=== PATIENT | female | born 1960 | race Caucasian/White ===

== ENCOUNTER 2018-10-24 06:04 | Inpatient (IN) | payer MEDICARE, OTHER, SELFPAY ==
[2018-10-09 12:43] VITALS: BMI 29.7
[2018-10-20 23:45] VITALS: BP 151/79; PULSE 77; RESP 16; TEMP 37.4; O2SAT 94
[2018-10-24] VITALS (16 sets, daily range): BP systolic 98–164; BP diastolic 52–99; PULSE 62–82; RESP 14–18; TEMP 36.2–37.3; O2SAT 88–100; BMI 28.6
--- NOTE | 2018-10-24 | DI.RAD.S_ITS ---
PROCEDURE: XR LUMBAR SPINE MIN 4V INDICATIONS: XLIF L1-2, L2-3, L3-4, L4-5, TLIF @ L5-S1 TECHNIQUE: Fluoroscopic images were obtained during an operative procedure and submitted for interpretation following the completion of the procedure. COMPARISON: [facility], , L-SPINE WITHOUT CONTRAST, 07/01/2015, 17:26. [facility], CR, L-SPINE 2-3 VIEWS, 12/25/2012, 14:01. FINDINGS: These fluoroscopic images were performed for intraoperative localization. On these images, the screws are seen on the left side at the L5 and S1 levels. Disc spacers are seen throughout the lumbar spine. Please correlate with intraoperative findings. IMPRESSION: Normal intraoperative examination. Dictated by: Tony Toribio M.D. on 10/24/2018 at 12:47 Approved by: Tony Toribio M.D. on 10/24/2018 at 12:48
[2018-10-24] MEDS: LACTATED RINGERS 1,000 ML 42 ML IV ×2 (07:15→09:05)
--- NOTE | 2018-10-24 07:19 | SUR.PREOP ---
Pt reports has chronic numbness and tingling in all four extremities but left side is worse per pt.
--- NOTE | 2018-10-24 07:27 | PC.NURSE ---
Day shift: Pt not on AC unit at this time.
--- NOTE | 2018-10-24 07:30 | PM.PREOP ---
Pre-operative Note Interval Note Pre-op Check: Yes History & Physical Reviewed by Physician and Yes Exam Performed Changes: No
--- NOTE | 2018-10-24 07:35 | P.OP_ITS ---
Operative Date/Time/Diagnoses Date of procedure: 10/24/18 Time of procedure: 11:47 Pre-op diagnosis: Lumbar stenosis with radiculopathy Lumbar scoliosis Procedure & Clinicians Procedure: L1-2, L2-3, L3-4, L4-5 anterior fusion with cages L5-S1 TLIF (post/post innerbody fusion) with cage L5 and S1 screws icbg aspirate L5S1 laminectomy use of microscope placement of epidural catheter Same procedure as scheduled: Yes Indications: [age] year old female with intractable pain from stenosis. She had failed conservative management and requested operative intervention. Risks and benefits of surgery were discussed and appropriate consents were obtained. Surgeon: Rodo Edmond Platform Material Handling Supervisor: Salena Mulligan Anesthesia Type: General Operative Notes Findings: None Closure Type: primary Specimen(s): none sent Implants & Drains: NuVasive MAS reline screws NuVasive XLIF cages Globus Rise cage Applied: catheter Estimated Blood Loss (mL): 20 Blood products transfused: none Procedure in detail: Patient was brought to the operating room and intubated on the table. Time-out was performed. They were then rolled over to the lateral decubitus position with the [id number]. The table was bent and they were taped down in the correct position. X-rays were taken to confirm a true AP and lateral. Preoperative antibiotics were given. The left flank was prepped and draped in standard sterile fashion. Using fluoroscopy, a 3 cm incision was made above the iliac crest. We bluntly dissected down with Metzenbaum scissors and split the 3 abdominal muscle layers. We dissected out the retroperitoneal space and using finger guidance, brought our 1st dilator down to the psoas muscle. Using neuromonitoring and fluoroscopy, we placed it through the psoas onto the L4-5 disc space in an anterior position and gradually pulled the dilator posteriorly along the disc space. We placed our guidewire and measured our depth for the retractor. We then dilated with the next 2 dilators and then placed our retractor over the dilators. Position was confirmed with fluoroscopy and the retractor was locked down to the bar. We opened up the retractor and checked with neuro monitoring. We then placed the nanci and again checked with neuro monitoring. The retractor was opened further and the ALL retractor was placed. An annulotomy was performed. We then performed a complete diskectomy with ring curette, pituitary, box osteotome. A Hernadez was advanced across the disc space under fluoroscopy to release the lateral annulus on the opposite side. We then used sequentially larger trials and confirmed under fluoroscopy. An XLIF cage was packed with Osteocell bone graft and impacted into the L4-5 disc space with fluoroscopy for the anterior fusion at this level. The wound was irrigated. The retractor was closed down. The nanci was removed. We carefully removed the retractor with direct visualization to make sure there was no neurovascular or abdominal injury. We then proceeded to do the next 3 levels with the same technique. At each level we used a dilator and checked with neuro monitoring, we placed a retractor , we performed a diskectomy and lateral release, we trialed, and we placed a cage with bone graft for the anterior fusions at L3-4, L2-3, L1-2. The retractor was removed under direct visualization at each level. Final x-rays were taken. The muscle fascia was closed, superficial tissue was closed. The skin was closed. Sterile dressing was placed. The patient was then rolled over on the well-padded prone position on the Toi table. Using fluoroscopy, a 4 cm longitudinal incision was made to the left of the midline. We used Bovie to come down to and split the lumbodorsal fascia. Using fluoroscopy and monitoring, we then percutaneously placed Jamshidi needles down the pedicles of L5 and S1 on the left side. These were changed out to guidewires and then we tapped and then placed the NuVasive MAS Reline screw shanks. We then opened up the retractors and used Bovie to clear up the posterolateral gutter as well as medially along the lamina to the spinous processes. A bur was used to decorticate the transverse processes. We brought in the microscope. Using a combination of bur and Kerrison rongeurs , a laminectomy was performed from the left side. We cleared over past the midline and carefully depressed the dura until we were able to decompress the opposite side. We cleared out the neural foramen. This required a facetectomy to adequately decompress the foramen. This completed the laminectomy at L5-S1. This was separate and distinct from the TLIF approach as we needed much more of an extensive laminectomy with facetectomy compared to just a standard approach. We then began the TLIF prep. We carefully cleaned up the remainder of the foramen until we could easily retract the exiting root as well as clearing medially below the dura and expose the disc space. The disc was prepped with bipolar and then an annulotomy was performed. This was tight and we had to use fluoro guidance to get started and used an osteotome to remove the posterior osteophytes to access the disc. We performed a diskectomy using a combination of paddles, debby, Kerrison, and curettes. We distracted the disc using a paddle and locked the retractor in an open position. This was very tight and we only had a 7mm paddle to do this. We then filled the disc space with Osteocell bone graft. We then placed the globus Rise cage under fluoroscopy and then filled this in with more bone graft. The distraction on the retractor was released to compress down. This completed the posterior interbody fusion portion of the TLIF at L5-S1. This cage was well fixed and I did not want to put the tulip heads on the screws yet as I wanted to be able access them with reduction heads at her next surgery in 2 days. The wound was copiously irrigated. A small stab incision was made over the PSIS. We used a Jamshidi needle to aspirate several mL of bone marrow from the pelvis. This was mixed with the remaining Osteocell and combined with all of the locally harvested bone graft and placed in the posterolateral gutter for the posterior fusion of the TLIF at L5-S1. An epidural catheter was then placed in the spinal canal by carefully depressing the dura and advancing it 6 cm cephalad under the remaining lamina without resistance. The muscle fascia was closed. The catheter was then injected with a solution containing 4 mL of 0.5% Marcaine, 1 mg Stadol, 4 mg Duramorph, and 100 mcg of fentanyl. This was injected without resistance and the catheter was pulled. Vancomycin powder was placed in the wound. The superficial and skin were closed. A sterile dressing was placed. The patient was then rolled over extubated and brought to recovery room without complications. Complications: none Condition: stable Disposition: PACU Plan for aftercare: Inpatient. Up with physical therapy as tolerated. We will return in 2 days for the extensive posterior fusion.
[2018-10-24] MEDS: CEFAZOLIN 2 GM/100 ML FROZ.PIGGY IV ×2 (07:48→16:45)
[2018-10-24] MEDS: SODIUM CHLORIDE 0.9% 1,000 ML, GENTAMICIN 80 MG IRR (08:26)
[2018-10-24] MEDS: VANCOMYCIN 1,000 MG VIAL 1000 MG TOP (08:28)
--- NOTE | 2018-10-24 08:33 | SUR.OPER ---
Right lateral on padded OR table. Head on pillow, gel axillary roll, pillow to support left arm. Legs flexed, pillows between legs, gel pad under down leg and ankle. Multiple passes of 3 inch cloth tape across shoulder, hip, upper and lower legs to secure patient on OR table.
--- NOTE | 2018-10-24 08:33 | SUR.OPER ---
Prone on spine table, head in foam head support, padded chest and pelvic supports, gel pad at knees, lower legs supported by pillows; nipples, genitalia and toes free of pressure, arms secured on foam padded arm boards at <90 degrees abduction. Tape over blanket at thigh secured to table.
[2018-10-24] MEDS: BUPIVACAINE 0.5% (PF) 4 ML, MORPHINE-PF 4 MG, BUTORPHANOL 1 MG, fentaNYL 100 MCG INJ (09:42)
[2018-10-24] MEDS: ACETAMINOPHEN 1,000 MG/100 ML VIAL IV (11:08)
--- NOTE | 2018-10-24 12:31 | SUR.PHASEI ---
Noted pt. with blood on hand upon admit, IV disconnected. This author was able connect IV back, fluids infused without further problems. Pt. began flailing arms (1205) irratically, pt. very strong while staff attempted to keep arms safe from injury. With pt. moving about in the bed and arms flailing IV got pulled out. Pt. compliant with commands to hold arms still while pressure was applied and new IV inserted into Right AC. Pt. tolerated well.
[2018-10-24] MEDS: fentaNYL 100 MCG/2 ML INJ 50 MCG IV ×2 (12:43→12:57)
--- NOTE | 2018-10-24 13:25 | PC.NURSE ---
Day shift: On unit at approx 1315. Oriented to room and call light. Agrees to not get OOB w/o help from staff. Bed alarm is on. A&Ox3. Hx PTSD. HAs been calm and cooperative. Rates pain 3/10.
[2018-10-24] MEDS: LACTATED RINGERS 1,000 ML 125 ML IV ×2 (13:58→22:36)
[2018-10-24] MEDS: OXYCODONE IR 5 MG TABLET 10 MG PO ×3 (14:02→20:27)
[2018-10-24] MEDS: hydrOXYzine pamoate 25 MG CAPSULE PO ×2 (14:02→17:43)
[2018-10-24] MEDS: CELECOXIB 200 MG CAPSULE 400 MG PO (14:03)
--- NOTE | 2018-10-24 14:39 | CM.DANOTE ---
Discharge Planning/Care Management DCP: assessment: case received, EMR reviewed and went earlier to room to meet with pt. She was still in surgery. White board with DCPlanner contact info updated. Documentation reveals that pt is a 58 year old female who admitted early this morning for a scheduled spinal surgery: NOTE: Part one of surgery today. Part two scheduled for 10/26. Surgeon: Dr. Edmond. PCP: Veronica Smith Payer: Medicare and [employer] Anticipate PT and OT will be working with pt. Pre-op assessment notes show that pt lives with a significant other (see those notes below) but is unclear what pt is planning for her rehab process or what she has discussed with the orthpedic team in terms of what will be needed to recover from this extensive surgery process. Will know more after pt arrives to the floor. P: DCP team will be following for further assessment and discussion of d/c issues and options. CM Discharge Assessment Start: 10/24/18 14:36 Freq: Status: Active Protocol: Document 10/24/18 14:36 ITV (Rec: 10/24/18 14:39 ITV [id number]) Discharge Planning Assessment Advance Directives? No: Information mailed to patient Prior Living Arrangements House Household Members significant other Document 10/24/18 14:37 ITV (Rec: 10/24/18 14:39 ITV [id number]) Discharge Planning Assessment Advance Directives? No: Information mailed to patient Prior Living Arrangements House Household Members significant other Document 10/24/18 14:37 ITV (Rec: 10/24/18 14:39 ITV [id number]) Discharge Planning Assessment Advance Directives? Information mailed to patient History Provided By Medical Record Prior Living Arrangements House Independent with ADL's Yes Whiteboard Updated in Patient Room with Yes name and ext. # of Industrial Tractor Driver Review Status In Process Next Review Type Continued Stay Review Pre-Anesthesia Assessment Start: 10/09/18 12:43 Freq: Status: Active Protocol: Document 10/09/18 12:43 CAB (Rec: 10/09/18 13:54 CAB [id number]) Pre-Anesthesia Assessment Patient Also Known As Becker (AKA) Patient Information Reviewed Via Phone Assessment Assessment Completed With Patient Lab Results BMP/CMP CBC EKG Primary Care Provider Veronica Smith Medical Clearance Received Yes Seen Specialist in Last 12 Months Yes Specialist Seen Paper Reel Operator Orthopedist Comment PCP clearance 08/01/18 to med records to be scanned to chart Primary Language Lao Acid Concentrator Required No Height 168.91 cm Weight 84.822 kg Body Mass Index (BMI) 29.7 Hearing Ability Hard of Hearing Visual Assist Glasses Dentition Type Teeth, Natural Present Barriers to Learning None Other Aids No Hx Anesthesia Reactions No Hx Family Anesthesia Reaction No Hx Malignant Hyperthermia No Hx Blood Transfusions No Anesthesia Review Requested No Television Equipment Operator No alcohol intake current alcohol intake frequency 0-2 drinks per day Smoking Status Former smoker how long ago did patient quit smoking Quit 1996 Substance Use Type marijuana Comment Pt advised not to smoke to marijuana 24 hours prior Pain Present Pain Reported Musculoskeletal Symptoms Abnormal Gait Back Pain Difficulty Walking Joint Pain Muscle Cramps Muscle Spasms Muscle Weakness Numbness Radiating Pain into Limb Patient is completely paralyzed or No completely immobile Mental Status Oriented to own ability Is patient on oxygen? No Does patient have WANG/SOB No Hx Sleep Apnea No Currently Taking a Beta Rory Yes: Propranolol Can You Climb a Flight of Stairs Without Yes SOB Hx Chest Pain No Hx SOB No Hx Syncope or Dizziness No Anti-Coagulant Therapy No Has a Assistant General Manager No Cardiac Testing No Hx Pacemaker/ICD No Pacemaker Rep Required? No Cardiac Clearance Received Not Applicable Diet Type At Home Regular dysphagia No Bladder Pattern Incontinent, Stress Urinary Catheter Present No Hx Urinary Self Catheterization No Diabetes No Patient No Lactating No Hx Drug Resistant Organism No Presence of External or Internal Medical Yes Devices Comment Lap band Have you traveled outside the [facility] States in the last 30 days? Marital Status Lives With significant other Prior Living Arrangements House Number of Floors (Floors) One Floor Number of Stairs To Enter/Railing? 3 stairs, railing present Support System Sibling(s) Significant Other Does the Patient Have Assistance After Yes Surgery Patient Discharge Plan Description Return Home Comment Pt has not been advised on length of stay per surgeon's office Feels Safe in Current Environment Yes Been Physically Hurt or Threatened By a No Person in Current Environment Do you have thoughts of harming yourself None or others? Are you currently considering suicide? No Do you have a plan to hurt yourself or No Plan others? Do You Have Any Spiritual Beliefs That No May Affect Your HC Choices? Do You Have Any Cultural Practices That No May Affect Your HC Choices? Spiritual Referral None Who Can We Speak to About Patient's Care Family, friends Identifying Code for Release of Patient Declines to issue Information Health Care Proxy/Next of Kin Carl Morin (S.O.) Health Care Proxy Emergency Contact Name Carl Morin (S.O.) Emergency Contact Advance Directives? No: Information mailed to patient Power of Cover Assembler No PAC Instructions Durable medical equipment Medications to take/avoid Nasal antibiotic No ETOH/petroleum product on skin DOS NPO Post-op transportation Pre-surgical wash Sturdy shoes/comfortable clothes Do not bring valuables and remove jewelry
--- NOTE | 2018-10-24 16:01 | PT.IIE ---
Current Diagnoses Other kyphosis, thoracolumbar region (10/24/18) Scoliosis, unspecified (10/24/18) Spinal stenosis, lumbar region with neurogenic claudication (10/24/18) Surgery Performed Operation Date: 10/24/18 07:45 Actual Procedures p L1-2, L2-3, L3-4, L4-5 XLIF; L5-S1 TLIF - Rodo Edmond MD Operation Date: 10/26/18 10:15 <No data on this case meets the specified criteria> Surgical History (Last Updated 10/09/18 @ 13:31 by Mae Ernst RN) History of ankle surgery (Acute ~2003) Hx of colonoscopy (Acute) Hx of laparoscopic gastric banding (Acute ~2004) Medical History (Last Updated 10/09/18 @ 13:31 by Mae Ernst RN) Chronic diarrhea (Acute) Depression (Acute) Easy bruisability (Acute) Facial lesion (Acute) Failed cervical fusion (Acute ~2007) Fecal incontinence (Acute) HTN (hypertension) (Acute) Hearing loss (Acute) History of UTI (Acute) Numbness and tingling (Acute) Pneumonia (Acute) RLS (restless legs syndrome) (Acute) Sinus infection (Acute ~2007) Stomach ulcer (Acute) Tinnitus of right ear (Acute) Trigger thumb, left thumb (Acute) Physical Therapy Inpatient Evaluation/Re-Eval M1 PT/OT-IP Prior Functional Status Start: 10/24/18 15:49 Freq: NEEDED Status: Active Protocol: Document 10/24/18 15:49 RS (Rec: 10/24/18 16:01 [id number]) Medical Review Prior Functional Status Medical History Reviewed Yes Diet/Fluid Consistency Regular Communication no known deficits Mobility and Gait ind without device Activities of Daily Living and IADL's denies needing assist Prior Functional Level (Other details) drives, denies falls Social History Household Members significant other Living Arrangements House Number of Floors (Floors) One Floor Number of Stairs To Enter/Railing? 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 Current Condition Start: 10/24/18 15:49 Freq: NEEDED Status: Active Protocol: Document 10/24/18 15:49 RS (Rec: 10/24/18 16:01 [id number]) Physical Therapy Current Condition Current Condition Evaluation Date 10/24/18 Treatment Diagnosis T1-S1 TLIF Onset Date 10/24/18 Precautions Lumbar Precautions Log Roll No Twisting Limit Bending Lifting Restriction of 10 lbs Gait Belt above Incisional Area M3 PT-IP Subjective Start: 10/24/18 15:49 Freq: NEEDED Status: Active Protocol: Document 10/24/18 15:49 RS (Rec: 10/24/18 16:01 RS [id number]) Subjective Physical Therapy Visit Type Type Initial Evaluation Visit Start Time 15:00 Visit Stop Time 15:49 Total Visit Minutes 49 Physical Therapy Visit Comments Patient Comments Pt reports feeling better than before, still has numbness in LLE. Patient Goals go home, move. Therapy Pain Assessment Pain When Pain Assessed At Rest Pain Present Pain Present Pain Reported Location Lower Back Intensity 3 Scale Used Numeric (1 - 10) Pain Management Techniques Distraction Modification of Treatment Re-positioning Timing of Activity with Medications M4 PT-IP Mobility and Gait Start: 10/24/18 15:49 Freq: NEEDED Status: Active Protocol: Document 10/24/18 15:49 RS (Rec: 10/24/18 16:01 RS [id number]) PT-Bed Mobility Assessment Rolling Type of Rolling Log Rolling Roll to Left Level of Assist Standby Assistance Supine to Sit Supine to Sit Minimal Assistance Scooting Scooting to Edge of Bed Standby Assistance PT-Transfer Assessment Sit to and From Stand Sit to and from Stand Standby Assistance Equipment Transfer Assistive Device Gait Belt Front Wheeled Walker Transfers Transfer Destination Bed Chair Transfer Technique walked Transfer Ability Level of Assist Standby Assistance Comments Mobility Comments Pt needs cues to slow down all movements but was able to perform log rolling and sit<> stand without physical assist. Pt needs min A to go from L sidelying to sitting EOB. Pt impulsive. Gait Assessment Gait Gait Assistance Required: Standby Assistance Distance (Feet) 60 Assistive Devices Assistive Device Gait Belt Front Wheeled Walker Gait Deviations General Gait Pattern Decreased Stride Length Decreased Feet Clearance Narrow Based Gait Factors Limiting Gait Function Factors Limiting Gait Function Decreased Sensation Pain Poor Safety Awareness Comments Gait Comments Pt steady with use of FWW but is taking extremely short steps, easily distracted, stops frequently to talk. Stair Climbing Assessment Comments Stair Climbing Comments not yet tested PT-Balance Assessment Sitting Balance and Reactions Static Sitting Balance Ability Normal Dynamic Sitting Balance Ability Normal Standing Balance and Reactions Static Standing Balance Ability Good Dynamic Standing Balance Ability Good Device Used FWW M5 PT-IP Objective Assessments Start: 10/24/18 15:49 Freq: NEEDED Status: Active Protocol: Document 10/24/18 15:49 RS (Rec: 10/24/18 16:01 [id number]) Orientation Orientation/Cognition Level of Alertness Confusional State Orientation Name Age Birthday Month Date Year Day of Week Place Situation Safety Awareness Decreased Safety Awareness Comments Pt is quite tangential and at times mildly inappropriate in her story telling or comments. Gross Range of Motion Upper Extremity ROM Assessment Within Functional Limits Lower Extremity ROM Assessment Within Functional Limits Strength Upper Extremity Strength Assessment Within Functional Limits Comments Strength Comments BLE grossly 4/5 Sensation Assessment Sensation Light Touch Impaired Proprioception (Position) Impaired M6 PT-IP Treatment Start: 10/24/18 15:49 Freq: NEEDED Status: Active Protocol: Document 10/24/18 15:49 RS (Rec: 10/24/18 16:01 [id number]) Physical Therapy Treatment Education Education Provided Precautions Weight Bearing Status Post-Op Packet Safety M7 PT-IP Assessment and Plan Start: 10/24/18 15:49 Freq: NEEDED Status: Active Protocol: Document 10/24/18 15:49 RS (Rec: 10/24/18 16:01 [id number]) PT Summary Assessment and Plan Potential Rehabilitation Potential Good Status of Condition at Evaluation Stable Summary Impairments Pain Strength Balance Cognition Bed Mobility Transfers Gait Activity Tolerance Assessment Summary Pt is POD#1 L1-S1 TLIF. Pt's mobility is quite good (only requiring physical assist with bed mobility), but pt is very impulsive and has a hard time focusing. Pt will likely be safe to discharge directly home pending cognitive clearing over the next 24 hours. Will need to confirm level of assist available at home as it was difficult to get detailed information from the patient at this time. Goals Bed Mobility Goal Independent Transfer Goal Independent Gait Goal Independent Days to Meet Goals 2 Frequency of Treatment Frequency Of Treatment Twice a Day Treatment Plan Physical Therapy Treatment Plan Bed Mobility Training Transfer Training Gait Training Balance Retraining Post Op Education Discharge Planning Other Recommendations and Next Treatment confirm assist at home, Focus progress gait distance/quality , bed mobility Recommendations To Nursing Amount of Assist Needed 1 Person Assist Discharge Recommendations PT Discharge Recommendations Home with 24/ Assist Outpatient PT Equipment Needed for Home Before FWW Discharge
--- NOTE | 2018-10-24 16:46 | PC.NURSE ---
Addendum entered by Felice Chapa 10/24/18 20:10: Patient ate some of her evening meal and all liquids provided. Patient state she liked the liquids and this student nurse observed the patient drinking lots of water and a urine that was clear and light yellow. Patient had a visitor during dinner but is alone and asleep now. Bed is low and locked and call light within reach. Original Note: Student nurse note: Patient was initially seen in bed. Patient worked with PT and was sitting upright in chair when physical assessment was done. Patient was very talkative and alert. Patient seemed to ramble on and topics weren't always appropriate for situation. Unsure if this is patients baseline. Patient reports little pain though a number was not given.
--- NOTE | 2018-10-24 17:27 | PC.NURSE ---
Addendum entered by Estefani Wilde R.N. 10/24/18 18:12: 1815- Pt reports 25 minds and is apologetic for them. A/O x3, S.O. visitinig. Original Note: Addendum entered by Estefani Wilde R.N. 10/24/18 18:10: 1730- Two sites to lower back with gauze/tegaderm drsg's, both CDI. Original Note: 1729- A/O x3, 100%RA, LS clear, denies SOB. CMS ++ full sensation. BT+, denies nausea. Pt up with PT @1530, PT has signed pt off. Advanced diet to reg. Nguyen patent and draining clear yellow urine. RAC @ LR @ 125. Calf SCD's on, Call light in reach and bed alarm on for safety.
[2018-10-24] MEDS: OXYCODONE IR 5 MG TABLET PO ×2 (17:43→20:26)
[2018-10-24] MEDS: PROPRANOLOL 10 MG TABLET 20 MG PO (20:20)
[2018-10-24] MEDS: SENNOSIDES 8.6 MG TABLET 17.2 MG PO (20:20)
[2018-10-24] MEDS: GABAPENTIN 300 MG CAPSULE PO (20:20)
[2018-10-24] MEDS: CELECOXIB 200 MG CAPSULE PO (20:20)
[2018-10-24] MEDS: DOCUSATE 100 MG CAPSULE PO (20:20)
[2018-10-25] VITALS (7 sets, daily range): BP systolic 97–146; BP diastolic 57–80; PULSE 61–80; RESP 16–20; TEMP 36.2–37.4; O2SAT 97–100
[2018-10-25] MEDS: CEFAZOLIN 2 GM/100 ML FROZ.PIGGY IV (00:19)
[2018-10-25 06:05] LABS: Hematocrit 32.7 % (36-46); Hemoglobin 10.9 g/dL (12.0-16.0)
--- NOTE | 2018-10-25 06:22 | PC.NURSE ---
0330: while in the BR, pt started to feel dizzy and nauseous. pt's face was pale. pt was diaphoretic, BP 97/69. We used a wheelchair to get her back to the bed. no sycope. BP went back up to 120/57. pt reports this happens often at home. call light in reach. bed alarm active. IVF infusing.
--- NOTE | 2018-10-25 08:03 | PM.PNPO.1 ---
Subjective Date Patient Seen: 10/25/18 Time Patient Seen: 08:04 Interval history: Doing well. Pain about 3/10. Still some ache over the left lateral hip but no more sciatic pain running down the left leg. Exam Vital Signs (past 8 hours): - 10/25/18 00:35 10/25/18 03:32 10/25/18 04:00 Temperature 98.3 F 97.2 F L Pulse Rate 68 66 66 Respiratory Rate 20 20 Blood Pressure 124/71 97/69 120/57 L Pulse Oximetry 98 97 Oxygen Delivery Method Room Air Oxygen Flow Rate 0 Const Orientation: alert and oriented x3 Back/Spine/Pelvis Other: Dressings clean dry intact. Mild bruising around skin. 5/5 motor both lower extremities Objective Labs Result Diagrams: 10/25/18 05:44 Labs: Laboratory Results - last 24 hr 10/25/18 05:44 Hgb 10.9 L Hct 32.7 L Assessment & Plan Post-op Postoperative Procedures Operation Date: 10/24/18 07:45 Actual Procedures Side Surgeon p L1-2, L2-3, L3-4, L4-5 XLIF; L5-S1 TLIF Rodo Edmond MD Operation Date: 10/26/18 10:15 <No data on this case meets the specified criteria> She is doing very well. As her sciatic pain has resolved, I do not think we need to do any further laminectomies in the middle levels, the indirect decompression from the anterior fusion seems to help with this. Mobilize today with physical therapy. Removed the Nguyen to decrease the chance of urinary infection. NPO after midnight. Return to the operating room tomorrow for the 2nd half with a T10 through S1 posterior instrumented fusion with bone graft.
[2018-10-25] MEDS: OXYCODONE IR 5 MG TABLET PO ×2 (08:08→21:33)
[2018-10-25] MEDS: CELECOXIB 200 MG CAPSULE PO ×2 (08:09→21:33)
[2018-10-25] MEDS: DOCUSATE 100 MG CAPSULE PO ×2 (08:09→21:33)
[2018-10-25] MEDS: SERTRALINE 50 MG TABLET 150 MG PO (08:09)
--- NOTE | 2018-10-25 08:49 | OT.IP.TRT ---
Current Diagnoses Other kyphosis, thoracolumbar region (10/24/18) Scoliosis, unspecified (10/24/18) Spinal stenosis, lumbar region with neurogenic claudication (10/24/18) Surgery Performed Operation Date: 10/24/18 07:45 Actual Procedures p L1-2, L2-3, L3-4, L4-5 XLIF; L5-S1 TLIF - Rodo Edmond MD Operation Date: 10/26/18 10:15 <No data on this case meets the specified criteria> Occupational Therapy Treatment Note M3 OT- IP Subjective and Pain Start: 10/25/18 08:47 Freq: Status: Active Protocol: Document 10/25/18 08:48 [facility] (Rec: 10/25/18 08:49 [facility] [email or web address]) OT- Subjective Occupational Therapy Visit Type Type Administrative Note Notes Pt to have 2nd part of back surgery tomorrow, therefore to hold on OT eval until after pt completes 2nd back surgery.
--- NOTE | 2018-10-25 10:20 | PT.IPTN ---
Current Diagnoses Other kyphosis, thoracolumbar region (10/24/18) Scoliosis, unspecified (10/24/18) Spinal stenosis, lumbar region with neurogenic claudication (10/24/18) Surgery Performed Operation Date: 10/24/18 07:45 Actual Procedures p L1-2, L2-3, L3-4, L4-5 XLIF; L5-S1 TLIF - Rodo Edmond MD Operation Date: 10/26/18 10:15 <No data on this case meets the specified criteria> Physical Therapy Treatment Note M2 PT-IP Current Condition Start: 10/24/18 15:49 Freq: NEEDED Status: Active Protocol: Document 10/24/18 15:49 RS (Rec: 10/24/18 16:01 RS [id number]) Physical Therapy Current Condition Current Condition Evaluation Date 10/24/18 Treatment Diagnosis T1-S1 TLIF Onset Date 10/24/18 Precautions Lumbar Precautions Log Roll No Twisting Limit Bending Lifting Restriction of 10 lbs Gait Belt above Incisional Area M3 PT-IP Subjective Start: 10/24/18 15:49 Freq: NEEDED Status: Active Protocol: Document 10/25/18 10:20 GGD (Rec: 10/25/18 11:40 GGD [id number]) Subjective Physical Therapy Visit Type Type Treatment Note Visit Start Time 09:55 Visit Stop Time 10:20 Total Visit Minutes 45 Physical Therapy Visit Comments Patient Comments Pt states she would like to get up and walk. Therapy Pain Assessment Pain When Pain Assessed At Rest Pain Present Pain Present Pain Reported Location Lower Back Intensity 3 Scale Used Numeric (1 - 10) M4 PT-IP Mobility and Gait Start: 10/24/18 15:49 Freq: NEEDED Status: Active Protocol: Document 10/25/18 10:20 GGD (Rec: 10/25/18 11:40 GGD [id number]) PT-Bed Mobility Assessment Rolling Type of Rolling Log Rolling Roll to Left Level of Assist Standby Assistance Supine to Sit Supine to Sit Contact Guard Assistance Scooting Scooting to Edge of Bed Standby Assistance PT-Transfer Assessment Sit to and From Stand Sit to and from Stand Standby Assistance Equipment Transfer Assistive Device Gait Belt Front Wheeled Walker Transfers Transfer Destination Chair Transfer Ability Level of Assist Standby Assistance Gait Assessment Gait Gait Assistance Required: Standby Assistance Distance (Feet) 80 Assistive Devices Assistive Device Gait Belt Front Wheeled Walker Gait Deviations General Gait Pattern Decreased Stride Length Decreased Feet Clearance Narrow Based Gait Factors Limiting Gait Function Factors Limiting Gait Function Decreased Sensation Pain Poor Safety Awareness Comments Gait Comments BP supine 117/63, sitting 122/ 65, sitting in chair after ambulation 102/57. M5 PT-IP Objective Assessments Start: 10/24/18 15:49 Freq: NEEDED Status: Active Protocol: Document 10/24/18 15:49 RS (Rec: 10/24/18 16:01 RS [id number]) Orientation Orientation/Cognition Level of Alertness Confusional State Orientation Name Age Birthday Month Date Year Day of Week Place Situation Safety Awareness Decreased Safety Awareness Comments Pt is quite tangential and at times mildly inappropriate in her story telling or comments. Gross Range of Motion Upper Extremity ROM Assessment Within Functional Limits Lower Extremity ROM Assessment Within Functional Limits Strength Upper Extremity Strength Assessment Within Functional Limits Comments Strength Comments BLE grossly 4/5 Sensation Assessment Sensation Light Touch Impaired Proprioception (Position) Impaired M6 PT-IP Treatment Start: 10/24/18 15:49 Freq: NEEDED Status: Active Protocol: Document 10/25/18 10:20 GGD (Rec: 10/25/18 11:40 GGD [id number]) Physical Therapy Treatment Education Education Provided Precautions Safety M7 PT-IP Assessment and Plan Start: 10/24/18 15:49 Freq: NEEDED Status: Active Protocol: Document 10/25/18 10:20 GGD (Rec: 10/25/18 11:40 GGD [id number]) PT Summary Assessment and Plan Summary Assessment Summary Pt improving with bed mobility and gait. She did c/O nausea with gait and had slight decrease in BP. D/C plans will need to be reassessed after surgery tomorrow. Frequency of Treatment Frequency Of Treatment Twice a Day Treatment Plan Physical Therapy Treatment Plan Bed Mobility Training Transfer Training Gait Training Balance Retraining Post Op Education Discharge Planning Recommendations To Nursing Amount of Assist Needed 1 Person Assist Discharge Recommendations PT Discharge Recommendations Home with Assistance Equipment Needed for Home Before FWW Discharge
--- NOTE | 2018-10-25 11:54 | PC.NURSE ---
Addendum entered by Isabela Delatorre R.N. 10/25/18 12:56: Pts jacques catheter taken out around 1230. She is lying in bed comfortable and tolerated procedure well Original Note: Pt given 5mg of oxycodone and helpful for 3/10 pain to lower back and side. into see patient and wants jacques catheter d/cd. Will be done right after her friend is done visiting. Denies any numbness or tingling to lower extremity. Up with 1 PA and walker. Sitting up in chair now and comfortable.
--- NOTE | 2018-10-25 14:19 | CM.DPC ---
DCP Cont: Checked in with patient. Alert and oriented, laying in bed. Introduced self and role. Patient stated she has struggled with back pain for years. Patient had her first surgery yesterday, and is having her second surgery tomorrow. Patient mentioned that this surgery has been planned for a while. P: DCP to follow closely, having surgery tomorrow. Will be working with physical therapy team when able, before returning home. Janeth Villatoro RN/Art Objects Supervisor
--- NOTE | 2018-10-25 14:20 | PT.IPTN ---
Current Diagnoses Other kyphosis, thoracolumbar region (10/24/18) Scoliosis, unspecified (10/24/18) Spinal stenosis, lumbar region with neurogenic claudication (10/24/18) Surgery Performed Operation Date: 10/24/18 07:45 Actual Procedures p L1-2, L2-3, L3-4, L4-5 XLIF; L5-S1 TLIF - Rodo Edmond MD Operation Date: 10/26/18 10:15 <No data on this case meets the specified criteria> Physical Therapy Treatment Note M2 PT-IP Current Condition Start: 10/24/18 15:49 Freq: NEEDED Status: Active Protocol: Document 10/24/18 15:49 RS (Rec: 10/24/18 16:01 RS [id number]) Physical Therapy Current Condition Current Condition Evaluation Date 10/24/18 Treatment Diagnosis T1-S1 TLIF Onset Date 10/24/18 Precautions Lumbar Precautions Log Roll No Twisting Limit Bending Lifting Restriction of 10 lbs Gait Belt above Incisional Area M3 PT-IP Subjective Start: 10/24/18 15:49 Freq: NEEDED Status: Active Protocol: Document 10/25/18 14:20 GGD (Rec: 10/25/18 15:08 GGD [email or web address]) Subjective Physical Therapy Visit Type Type Treatment Note Visit Start Time 14:10 Visit Stop Time 14:20 Total Visit Minutes 10 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 Therapy Pain Assessment Pain When Pain Assessed At Rest Pain Present Pain Present Pain Reported Location Lower Back Intensity 3 Pain Management Techniques Re-positioning M4 PT-IP Mobility and Gait Start: 10/24/18 15:49 Freq: NEEDED Status: Active Protocol: Document 10/25/18 14:20 GGD (Rec: 10/25/18 15:08 GGD [email or web address]) PT-Bed Mobility Assessment Rolling Type of Rolling Log Rolling Roll to Left Level of Assist Standby Assistance Supine to Sit Supine to Sit Contact Guard Assistance Sit to Supine Sit to Supine Contact Guard Assistance Scooting Scooting to Edge of Bed Standby Assistance PT-Transfer Assessment Sit to and From Stand Sit to and from Stand Standby Assistance Equipment Transfer Assistive Device Gait Belt Front Wheeled Walker Transfers Transfer Destination Bed Transfer Ability Level of Assist Standby Assistance Gait Assessment Gait Gait Assistance Required: Standby Assistance Distance (Feet) 70 Assistive Devices Assistive Device Gait Belt Front Wheeled Walker Gait Deviations General Gait Pattern Decreased Stride Length Decreased Feet Clearance Narrow Based Gait Factors Limiting Gait Function Factors Limiting Gait Function Decreased Sensation Pain Poor Safety Awareness M5 PT-IP Objective Assessments Start: 10/24/18 15:49 Freq: NEEDED Status: Active Protocol: Document 10/24/18 15:49 RS (Rec: 10/24/18 16:01 RS [id number]) Orientation Orientation/Cognition Level of Alertness Confusional State Orientation Name Age Birthday Month Date Year Day of Week Place Situation Safety Awareness Decreased Safety Awareness Comments Pt is quite tangential and at times mildly inappropriate in her story telling or comments. Gross Range of Motion Upper Extremity ROM Assessment Within Functional Limits Lower Extremity ROM Assessment Within Functional Limits Strength Upper Extremity Strength Assessment Within Functional Limits Comments Strength Comments BLE grossly 4/5 Sensation Assessment Sensation Light Touch Impaired Proprioception (Position) Impaired M6 PT-IP Treatment Start: 10/24/18 15:49 Freq: NEEDED Status: Active Protocol: Document 10/25/18 14:20 GGD (Rec: 10/25/18 15:08 GGD [email or web address]) Physical Therapy Treatment Education Education Provided Precautions Safety M7 PT-IP Assessment and Plan Start: 10/24/18 15:49 Freq: NEEDED Status: Active Protocol: Document 10/25/18 14:20 GGD (Rec: 10/25/18 15:08 GGD [email or web address]) PT Summary Assessment and Plan Summary Assessment Summary Pt had improved tolerance to gait. She had no C/O nausea with mobility. She did need cues for full log roll with sit to supine. Frequency of Treatment Frequency Of Treatment Twice a Day Treatment Plan Physical Therapy Treatment Plan Bed Mobility Training Transfer Training Gait Training Balance Retraining Post Op Education Discharge Planning Recommendations To Nursing Amount of Assist Needed 1 Person Assist Discharge Recommendations PT Discharge Recommendations Home with Assistance Equipment Needed for Home Before FWW Discharge
--- NOTE | 2018-10-25 16:47 | PC.NURSE ---
Student Nurse Note: Patient's dressings are clean and without odor. Lower back dressing with shadow drainage along bottom edge, side dressing clear. Bruising present around both dressings, skin is clear and non-irritated other than bruising.
[2018-10-25] MEDS: SENNOSIDES 8.6 MG TABLET 17.2 MG PO (21:33)
[2018-10-25] MEDS: GABAPENTIN 300 MG CAPSULE PO (21:34)
[2018-10-25] MEDS: PROPRANOLOL 10 MG TABLET 20 MG PO (21:34)
--- NOTE | 2018-10-25 22:04 | PC.NURSE ---
Pt mostly tired and sleppy. Two sites to back, one lower mid back gauze/tegaderm, CDI, with small old shadow drainage and bruise, second site; left flank gauze/tegaderm CDI with bruise, CMS +. 100%RA, LS clear, denies SOB. BT+, denies nausea, BRP to void 1PA FWW. RAC SL. NPO at midnight and pt understands. Call light in reach, uses appropriately, and bed alarm on.
[2018-10-26] VITALS (13 sets, daily range): BP systolic 117–172; BP diastolic 65–95; PULSE 71–110; RESP 16–20; TEMP 36.3–37.1; O2SAT 91–100; BMI 28.6
--- NOTE | 2018-10-26 | DI.RAD.S_ITS ---
PROCEDURE: XR LUMBAR SPINE 2-3V INDICATIONS: T-10, TO S1 POSTERIOR SCREWS TECHNIQUE: 6 views of the lumbar spine were acquired. [facility]-3 [facility]IE[facility], 12/25/2012, 14:01. FINDINGS: Bones: 5 [id number] vertebrae are present. This study represents digital acquisition imaging after completion of a extensive posterior spine fusion procedure, with transverse pedicle screws and vertical fixation rods extending from T10-L1, establishing normal alignment. What appears to be a cage disc prosthesis at L5-S1 is present. Additional disc prosthesis material appears present at L4-5, L3-4, L2-3, and L1-L2. Soft tissues: Overlying bowel gas pattern is normal. No suspicious soft tissue calcifications. IMPRESSION: Extensive spine fusion procedure from T10-L1 as discussed, but establishing normal alignment. Expected positioning of transverse pedicle screws and vertical fixation rods and lower lumbosacral disc prosthesis devices. Dictated by: Mike Elias M.D. on 10/26/2018 at 15:20 Approved by: Mike Elias M.D. on 10/26/2018 at 15:28
[2018-10-26] MEDS: OXYCODONE IR 5 MG TABLET PO (05:54)
--- NOTE | 2018-10-26 09:24 | PC.NURSE ---
Patient picked up by [facility] for surgery.
--- NOTE | 2018-10-26 09:26 | PM.PNPO.1 ---
Subjective Date Patient Seen: 10/26/18 Time Patient Seen: 09:26 Interval history: Hospital day 3, postop day 2 following stage I anterior fusion L1-2 through L4-5, L5-S1 TLIF and laminectomy by Dr. Edmond. Patient has remained stable. Did note some increased pain during the night. Has used oxycodone early this morning. She is scheduled for stage II posterior fusion today. Patient is NPO. Exam Vital Signs (past 8 hours): - 10/26/18 05:45 Temperature 98.7 F Pulse Rate 74 Respiratory Rate 16 Blood Pressure 140/85 Pulse Oximetry 98 Oxygen Delivery Method Room Air Oxygen Flow Rate 0 Narrative Exam Narrative: Alert, oriented no acute distress resting in bed. Legs. No calf pain or swelling. Pulses symmetrical. Good sensation to touch to lower legs. Good strength on ankle dorsiflexion plantar flexion. Objective Labs Result Diagrams: 10/25/18 05:44 Assessment & Plan Post-op Postoperative Procedures Operation Date: 10/24/18 07:45 Actual Procedures Side Surgeon p L1-2, L2-3, L3-4, L4-5 XLIF; L5-S1 TLIF Rodo Edmond MD Operation Date: 10/26/18 10:15 <No data on this case meets the specified criteria> patient will remain NPO. Planned stage II posterior lumbar fusion today.
--- NOTE | 2018-10-26 09:28 | PM.PNPO.1 ---
Subjective Date Patient Seen: 10/26/18 Time Patient Seen: 09:29 Interval history: Hospital day 2, postop day 1 following Exam Vital Signs (past 8 hours): - 10/26/18 05:45 Temperature 98.7 F Pulse Rate 74 Respiratory Rate 16 Blood Pressure 140/85 Pulse Oximetry 98 Oxygen Delivery Method Room Air Oxygen Flow Rate 0 Objective Labs Result Diagrams: 10/25/18 05:44 Assessment & Plan Post-op Postoperative Procedures Operation Date: 10/24/18 07:45 Actual Procedures Side Surgeon p L1-2, L2-3, L3-4, L4-5 XLIF; L5-S1 TLIF Rodo Edmond MD Operation Date: 10/26/18 10:15 <No data on this case meets the specified criteria>
[2018-10-26] MEDS: LACTATED RINGERS 1,000 ML 42 ML IV ×3 (09:42→14:59)
--- NOTE | 2018-10-26 10:45 | PM.PREOP ---
Pre-operative Note Interval Note Pre-op Check: Yes History & Physical Reviewed by Physician and Yes Exam Performed Changes: No H&P completed within 30 days and has changed as indicated here:: L leg doing very well today, just occasional pain
[2018-10-26] MEDS: CEFAZOLIN 2 GM/100 ML FROZ.PIGGY IV ×2 (11:34→20:18)
[2018-10-26] MEDS: BUPIVACAINE LIPOSOME 266 MG/20 ML VIAL INJ (12:42)
[2018-10-26] MEDS: SODIUM CHLORIDE 0.9% 1,000 ML, GENTAMICIN 80 MG IRR ×2 (12:43→14:55)
[2018-10-26] MEDS: BUPIVACAINE 0.25% W/ EPI VIAL 50 ML INJ (12:43)
[2018-10-26] MEDS: VANCOMYCIN 1,000 MG VIAL 1000 MG TOP (14:56)
--- NOTE | 2018-10-26 15:02 | PC.NURSE ---
Patient still off unit, no report received yet from PACU. Evening shift RN to assume care.
--- NOTE | 2018-10-26 15:26 | PM.OP.1 ---
Operative Date/Time/Diagnoses Date of procedure: 10/26/18 Time of procedure: 15:27 Pre-op diagnosis: lumbar stenosis with radiculopathy Lumbar scoliosis Post-op diagnosis: same Procedure & Clinicians Procedure: T10 through S1 posterior instrumented fusion for scoliosis Iliac crest bone graft Same procedure as scheduled: Yes Indications: 58-year-old female who had stage I of a two-stage scoliosis surgery 2 days ago. She was ready for part 2. Risks and benefits were discussed and appropriate consent obtained. Surgeon: Rodo Edmond Medical Laboratory Assistant: Katie Dorado Anesthesia Type: General Operative Notes Findings: None Closure Type: primary Specimen(s): none sent Implants & Drains: Nuvasive Reline MAS screws Applied: catheter Estimated Blood Loss (mL): 150 Procedure in detail: Patient is brought to the operating room and intubated on the stretcher. She was rolled over to the well-padded prone position on the Toi table. A time-out was performed. Preoperative antibiotics were given. The back was prepped and draped in standard sterile fashion. We used fluoroscopy for localization and made a 40 cm longitudinal incision to the left side. We used Bovie to come down to and split the lumbodorsal fascia. We then did a Glenda a muscle-splitting approach to expose the thoracic facets as well as the lumbar facets and lamina and lower transverse processes. All of these were decorticated with a bur to prepare for the fusion. Then using neural monitoring and fluoroscopy, we percutaneously placed Jamshidi needles down the left side from T10 through L4. These were changed out the guidewires. We then went over to the right-hand side. Another 40 cm longitudinal incision was made with fluoroscopy. We just came down to and split the fascia here. We then percutaneously placed Jamshidi needles down from T10 through S1 on the right. We changed out the guidewires. We then tapped and placed all of our screws on the right using a combination of MAS and reduction Reline screws. The patience was bent and placed into the screw towers and reduced down to the screws. X-rays were taken and the final tightening was done. All the towers were removed. We then went back to the left side and again using monitoring fluoro tapped and placed all of our screws from T10 through L4. We also hooked on the reduction Tulip heads at L5 and S1 to the screws had been placed 2 days ago. A patience was bent and placed into the screws and the set screws were placed down and final tightening was performed. The towers were removed. Final x-rays were taken. The wounds were irrigated. We then made a small stab incision over the right PSIS. A Jamshidi needle was used to harvest 10 cc of bone marrow aspirate with multiple passes. This was mixed with 30 cc of bone chips as well as Osteocel in the posterior and posterolateral gutter from T10 through S1 for the posterior fusion. The fascia was closed in layers. Vancomycin powder was placed in the wound. The superficial and skin were closed. Sterile dressings were placed with jen drains. She was rolled over extubated brought to recovery with no complications. Complications: none Condition: stable Disposition: PACU Plan for aftercare: Inpatient. Mobilize with physical therapy.
[2018-10-26] MEDS: HYDROMORPHONE 2 MG INJ 0.5 MG IV ×4 (15:40→16:00)
[2018-10-26] MEDS: LORazepam 2 MG/ML SYRINGE 0.5 MG IV (16:02)
[2018-10-26] MEDS: CELECOXIB 200 MG CAPSULE 400 MG PO (20:14)
[2018-10-26] MEDS: PROPRANOLOL 10 MG TABLET 20 MG PO (20:15)
[2018-10-26] MEDS: DOCUSATE 100 MG CAPSULE PO (20:15)
[2018-10-26] MEDS: SENNOSIDES 8.6 MG TABLET 17.2 MG PO (20:15)
[2018-10-26] MEDS: LACTATED RINGERS 1,000 ML 125 ML IV (20:22)
[2018-10-27] VITALS (7 sets, daily range): BP systolic 133–146; BP diastolic 50–82; PULSE 69–83; RESP 14–73; TEMP 36.8–37.3; O2SAT 94–99
[2018-10-27] MEDS: OXYCODONE IR 5 MG TABLET PO ×3 (01:04→16:04)
[2018-10-27] MEDS: CEFAZOLIN 2 GM/100 ML FROZ.PIGGY IV (03:05)
[2018-10-27 06:07] LABS: Hematocrit 25.2 % (36-46); Hemoglobin 8.8 g/dL (12.0-16.0)
[2018-10-27] MEDS: PROPRANOLOL 10 MG TABLET 20 MG PO ×2 (08:34→22:07)
[2018-10-27] MEDS: DOCUSATE 100 MG CAPSULE PO ×2 (08:34→22:08)
[2018-10-27] MEDS: SERTRALINE 50 MG TABLET 150 MG PO (08:35)
[2018-10-27] MEDS: CELECOXIB 200 MG CAPSULE PO ×2 (08:35→22:07)
--- NOTE | 2018-10-27 09:45 | P.PN_ITS ---
Subjective Date Patient Seen: 10/27/18 Time Patient Seen: 09:44 Interval history: She had a rough night but is doing much better at this point. Pain about 2 to 3/10. Some numbness along her lateral hips but no pain going down the legs. Exam Vital Signs (past 8 hours): - 10/27/18 05:50 10/27/18 06:51 Temperature 98.6 F Pulse Rate 81 Respiratory Rate 18 Blood Pressure 146/74 H Pulse Oximetry 99 99 Oxygen Delivery Method Room Air Oxygen Flow Rate 0 Const Orientation: alert and oriented x3 Back/Spine/Pelvis Other: Moderate dry drainage on the bottom half of the left-sided dressing. Minimal drainage on the right. 5/5 motor both lower extremities. Objective Labs Result Diagrams: 10/27/18 05:58 Labs: Laboratory Results - last 24 hr 10/27/18 05:58 Hgb 8.8 L Hct 25.2 L Assessment & Plan Post-op Postoperative Procedures Operation Date: 10/24/18 07:45 Actual Procedures Side Surgeon p L1-2, L2-3, L3-4, L4-5 XLIF; L5-S1 TLIF Rodo Edmond MD Operation Date: 10/26/18 10:15 Actual Procedures Side Surgeon p T10-L1, L2-3, L3-4, L4-L5, L5-S1 Posterior Instrumented Fusion, Possible L1-2 , L2-3 laminectomies Rodo Edmond MD she is doing very well. Mobilize with physical therapy. Anticipate discharge in 2-3 days.
--- NOTE | 2018-10-27 10:09 | PT.IPRE ---
Current Diagnoses Other kyphosis, thoracolumbar region (10/24/18) Scoliosis, unspecified (10/24/18) Spinal stenosis, lumbar region with neurogenic claudication (10/24/18) Surgery Performed Operation Date: 10/24/18 07:45 Actual Procedures p L1-2, L2-3, L3-4, L4-5 XLIF; L5-S1 TLIF - Rodo Edmond MD Operation Date: 10/26/18 10:15 Actual Procedures p T10-L1, L2-3, L3-4, L4-L5, L5-S1 Posterior Instrumented Fusion, Possible L1-2, L2-3 laminectomies - Rodo Edmond MD Surgical History (Last Updated 10/09/18 @ 13:31 by Mae Ernst, RN) History of ankle surgery (Acute ~2003) Hx of colonoscopy (Acute) Hx of laparoscopic gastric banding (Acute ~2004) Medical History (Last Updated 10/09/18 @ 13:31 by Mae Ernst RN) Chronic diarrhea (Acute) Depression (Acute) Easy bruisability (Acute) Facial lesion (Acute) Failed cervical fusion (Acute ~2007) Fecal incontinence (Acute) HTN (hypertension) (Acute) Hearing loss (Acute) History of UTI (Acute) Numbness and tingling (Acute) Pneumonia (Acute) RLS (restless legs syndrome) (Acute) Sinus infection (Acute ~2007) Stomach ulcer (Acute) Tinnitus of right ear (Acute) Trigger thumb, left thumb (Acute) Physical Therapy Inpatient Evaluation/Re-Eval M1 PT/OT-IP Prior Functional Status Start: 10/24/18 15:49 Freq: NEEDED Status: Active Protocol: Document 10/24/18 15:49 RS (Rec: 10/24/18 16:01 [id number]) Medical Review Prior Functional Status Medical History Reviewed Yes Diet/Fluid Consistency Regular Communication no known deficits Mobility and Gait ind without device Activities of Daily Living and IADL's denies needing assist Prior Functional Level (Other details) drives, denies falls Social History Household Members significant other Living Arrangements House Number of Floors (Floors) One Floor Number of Stairs To Enter/Railing? 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 Current Condition Start: 10/24/18 15:49 Freq: NEEDED Status: Active Protocol: Document 10/27/18 09:46 NFW (Rec: 10/27/18 10:09 [facility] [id number]) Physical Therapy Current Condition Current Condition Evaluation Date 10/27/18 Treatment Diagnosis T1-S1 TLIF Onset Date 10/24/18 Precautions Lumbar Precautions Log Roll No Twisting Limit Bending Lifting Restriction of 10 lbs Gait Belt above Incisional Area M3 PT-IP Subjective Start: 10/24/18 15:49 Freq: NEEDED Status: Active Protocol: Document 10/27/18 09:46 NFW (Rec: 10/27/18 10:09 [facility] [id number]) Subjective Physical Therapy Visit Type Type Re-Evaluation Visit Start Time 09:21 Visit Stop Time 09:46 Total Visit Minutes 25 Number of BUDGET ANALYST Visits 0 Physical Therapy Visit Comments Patient Comments First day post-op second spinal surgery. Tired, some residual pain. Patient Goals go home, move. Therapy Pain Assessment Pain When Pain Assessed At Rest Pain Present Pain Present Pain Reported Location Lower Back Intensity 3 Scale Used Numeric (1 - 10) Pain Management Techniques Re-positioning M4 PT-IP Mobility and Gait Start: 10/24/18 15:49 Freq: NEEDED Status: Active Protocol: Document 10/27/18 09:46 NFW (Rec: 10/27/18 10:09 [facility] [id number]) PT-Bed Mobility Assessment Rolling Type of Rolling Log Rolling Roll to Left Level of Assist Minimal Assistance Supine to Sit Supine to Sit Minimal Assistance Scooting Scooting to Edge of Bed Standby Assistance PT-Transfer Assessment Sit to and From Stand Sit to and from Stand Contact Guard Assistance Equipment Transfer Assistive Device Gait Belt Front Wheeled Walker Transfers Transfer Destination Chair Transfer Technique walked Transfer Ability Level of Assist Contact Guard Assistance Comments Mobility Comments Verbal cuing required to assure proper positioning of lumbar spine with transitional activities especially supine to sit, stand to sit. Gait Assessment Gait Gait Assistance Required: Contact Guard Assist Distance (Feet) 12 Assistive Devices Assistive Device Gait Belt Front Wheeled Walker Gait Deviations General Gait Pattern Decreased Stride Length Decreased Feet Clearance Narrow Based Gait Factors Limiting Gait Function Factors Limiting Gait Function Decreased Sensation Pain Poor Safety Awareness Comments Gait Comments BP supine 142/81, pulse 72 BP sitting 143/86, pulse 78 BP after walking 133/87, pulse 75. O2 98 PT-Balance Assessment Sitting Balance and Reactions Static Sitting Balance Ability Normal Standing Balance and Reactions Static Standing Balance Ability Good Dynamic Standing Balance Ability Good Device Used FWW Comments Other Balance Tests/Deviations/Treatment First time up after second : surgery, tired and sore. M5 PT-IP Objective Assessments Start: 10/24/18 15:49 Freq: NEEDED Status: Active Protocol: Document 10/24/18 15:49 RS (Rec: 10/24/18 16:01 RS [id number]) Orientation Orientation/Cognition Level of Alertness Confusional State Orientation Name Age Birthday Month Date Year Day of Week Place Situation Safety Awareness Decreased Safety Awareness Comments Pt is quite tangential and at times mildly inappropriate in her story telling or comments. Gross Range of Motion Upper Extremity ROM Assessment Within Functional Limits Lower Extremity ROM Assessment Within Functional Limits Strength Upper Extremity Strength Assessment Within Functional Limits Comments Strength Comments BLE grossly 4/5 Sensation Assessment Sensation Light Touch Impaired Proprioception (Position) Impaired M6 PT-IP Treatment Start: 10/24/18 15:49 Freq: NEEDED Status: Active Protocol: Document 10/27/18 09:46 NFW (Rec: 10/27/18 10:09 NFW [id number]) Physical Therapy Treatment Other Treatments Other Treatment Performed Treatment in conjunction with OT M7 PT-IP Assessment and Plan Start: 10/24/18 15:49 Freq: NEEDED Status: Active Protocol: Document 10/27/18 09:46 NFW (Rec: 10/27/18 10:09 NFW [email or web address]) PT Summary Assessment and Plan Potential Rehabilitation Potential Excellent Status of Condition at Evaluation Stable Summary Impairments Pain Strength Balance Cognition Bed Mobility Transfers Gait Activity Tolerance Assessment Summary Patient required review of proper techniques to protect lumbar spine with transitional activites. Overall endurance is low. Will need review of lumbar precautions. Goals Bed Mobility Goal Independent Transfer Goal Independent Gait Goal Independent Days to Meet Goals 2 Frequency of Treatment Frequency Of Treatment Twice a Day Treatment Plan Physical Therapy Treatment Plan Bed Mobility Training Transfer Training Gait Training Balance Retraining Post Op Education Discharge Planning Other Recommendations and Next Treatment Patient has a 4WW at home vs Focus FWW, will need to assess appropriateness of 4WW. Recommendations To Nursing Amount of Assist Needed 1 Person Assist Discharge Recommendations PT Discharge Recommendations Home with Assistance Equipment Needed for Home Before Check need of FWW Discharge
--- NOTE | 2018-10-27 10:28 | OT.IP.EVAL ---
Current Diagnoses Other kyphosis, thoracolumbar region (10/24/18) Scoliosis, unspecified (10/24/18) Spinal stenosis, lumbar region with neurogenic claudication (10/24/18) Surgery Performed Operation Date: 10/24/18 07:45 Actual Procedures p L1-2, L2-3, L3-4, L4-5 XLIF; L5-S1 TLIF - Rodo Edmond MD Operation Date: 10/26/18 10:15 Actual Procedures p T10-L1, L2-3, L3-4, L4-L5, L5-S1 Posterior Instrumented Fusion, Possible L1-2, L2-3 laminectomies - Rodo Edmond MD Past Medical History (Last Updated 10/09/18 @ 13:31 by Mae Ernst RN) Chronic diarrhea (Acute) Depression (Acute) Easy bruisability (Acute) Facial lesion (Acute) Failed cervical fusion (Acute ~2007) Fecal incontinence (Acute) HTN (hypertension) (Acute) Hearing loss (Acute) History of UTI (Acute) Numbness and tingling (Acute) Pneumonia (Acute) RLS (restless legs syndrome) (Acute) Sinus infection (Acute ~2007) Stomach ulcer (Acute) Tinnitus of right ear (Acute) Trigger thumb, left thumb (Acute) Surgical History (Last Updated 10/09/18 @ 13:31 by Mae Ernst, RN) History of ankle surgery (Acute ~2003) Hx of colonoscopy (Acute) Hx of laparoscopic gastric banding (Acute ~2004) Occupational Therapy Inpatient Evaluation/Re-Eval M1 PT/OT-IP Prior Functional Status Start: 10/24/18 15:49 Freq: NEEDED Status: Active Protocol: Document 10/24/18 15:49 RS (Rec: 10/24/18 16:01 [id number]) Medical Review Prior Functional Status Medical History Reviewed Yes Diet/Fluid Consistency Regular Communication no known deficits Mobility and Gait ind without device Activities of Daily Living and IADL's denies needing assist Prior Functional Level (Other details) drives, denies falls Social History Household Members significant other Living Arrangements House Number of Floors (Floors) One Floor Number of Stairs To Enter/Railing? 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 Prior Functional Status Start: 10/25/18 08:47 Freq: NEEDED Status: Active Protocol: Document 10/27/18 10:04 [facility] (Rec: 10/27/18 10:28 [facility] [id number]) Medical Review Prior Functional Status Medical History Reviewed Yes Diet/Fluid Consistency Regular Communication no known deficits Mobility and Gait ind without device Activities of Daily Living and IADL's denies needing assist Prior Functional Level (Other details) drives, denies falls Social History Household Members significant other Living Arrangements House Number of Floors (Floors) One Floor Number of Stairs To Enter/Railing? ramped entry (or 3-4 stairs) Home Environment Walk in Shower Home Equipment Four Wheel Walker Raised Toilet Seat Without Armrests M2 OT-IP Current Condition Start: 10/25/18 08:47 Freq: Status: Active Protocol: Document 10/27/18 10:04 [facility] (Rec: 10/27/18 10:28 [facility] [email or web address]) Occupational Therapy Current Condition Current Condition Evaluation Date 10/27/18 Treatment Diagnosis Lumbar Stenosis Diagnosis Onset Date 10/24/18 Post Operative Precautions Lumbar Precautions Log Roll No Twisting Limit Bending Lifting Restriction of 10 lbs Gait Belt above Incisional Area Weight Bearing Status Weight Bearing Status Weight Bear as Tolerated M3 OT- IP Subjective and Pain Start: 10/25/18 08:47 Freq: Status: Active Protocol: Document 10/27/18 10:04 [facility] (Rec: 10/27/18 10:28 [facility] [email or web address]) OT- Subjective Occupational Therapy Visit Type Type Initial Evaluation Visit Start Time 09:15 Visit Stop Time 09:55 Total Visit Minutes 40 Occupational Therapy Visit Comments Patient Comments Pt agreeable to get up. OT Pain Assessment Pain When Pain Assessed At Rest Pain Present Pain Present Pain Reported Location Lower Back Intensity 3 Scale Used Numeric (1 - 10) M4 OT- IP ADL's Start: 10/25/18 08:47 Freq: Status: Active Protocol: Document 10/27/18 10:04 [facility] (Rec: 10/27/18 10:28 [facility] [email or web address]) OT NEZ-Azza-[id number] General Evaluation Self-Feeding Ability Independent OT ADL-Grooming General Evaluation Grooming Ability Standby Assistance Comments OT Grooming Comments After set-up pt able to brush her hair while sitting in the recliner. OT ADL-Dressing General Eval Lower Body Dressing Ability Maximum Assistance Areas Needing Assistance Socks Comments OT Dressing Comments Initiated education of socks aid, loft worker, and pt has long handled brush at home. OT ADL-Toileting Comments OT Toileting Comments Pt still use of catheter. OT ADL-Bathing Comments OT Bathing Comments Pt states SO looking inot getting a shower chair. M5 OT- IP IADL's Start: 10/25/18 08:47 Freq: Status: Active Protocol: Document 10/27/18 10:04 [facility] (Rec: 10/27/18 10:28 [facility] [email or web address]) OT-Instrumental Activities of Daily Living Medication Management Medication Management Comments Encouraged pt to have SO supervision as pt a bit groogy on pain medication. Money Management Money Management Comments Encouraged pt to have SO assist at pt a bit groogy with pain medications. Meal Preparation Meal Preparation Comments SO to assist. Content Creation Manager Content Creation Manager Comments SO to assist. M6 OT- IP Functional Cognition Start: 10/25/18 08:47 Freq: Status: Active Protocol: Document 10/27/18 10:04 [facility] (Rec: 10/27/18 10:28 [facility] [email or web address]) Cognitive Factors Limiting Selfcare Function Cognitive Ability Level of Alertness Alert Patient Orientation Name Situation Attention Span Ability Capable of Focused Attention Capable of Sustained Attention Ability to Follow Commands Able to Follow One Step Commands Memory Description Immediate Impaired Short Term Impaired Safety Awareness Decreased Recall of Precautions Underestimates Need for Assistance Cognitive Comments Cognitive Assessment Comments Pt immediate recall 2/3 back precautions and after re- education x 2 still only able to recall 2/3 back precautions . OT- Vision and Hearing OT- Hearing Assessment OT- Hearing Assessment WFL M7 OT- IP Mobility and Balance Start: 10/25/18 08:47 Freq: Status: Active Protocol: Document 10/27/18 10:04 [facility] (Rec: 10/27/18 10:28 [facility] [email or web address]) OT- Bed Mobility Assessment Rolling Type of Rolling Roll to Right Level of Assistance Contact Guard Assistance Bedrails Supine to Sit Supine to Sit Assist Contact Guard Assistance 1 Person Assistance Scooting Scooting to Edge of Bed Standby Assistance OT-Transfer Assessment Sit to and From Stand Sit to and from Stand Minimal Assistance 1 Person Assistance Transfers Transfer Ability Contact Guard Assistance 1 Person Assistance Technique Transfer Destination Chair Devices Transfer Assistive Devices Gait Belt Front Wheeled Walker Comments Mobility Comments Pt needing mod vc for safety awareness and use of FWW, how to come to stand and to lower herself to sitting. Pt states has a very high bed and normally places her knee on the bed to get in. OT- Gait Assessment Comments Gait Ability Comments Pt states has 4ww, however may need FWW when she goes home. OT- Balance Assessment Sitting Balance and Reactions Static Sitting Balance Ability Normal Dynamic Sitting Balance Ability Normal Standing Balance and Reactions Static Standing Balance Ability Good Dynamic Standing Balance Ability Fair M8 OT- IP Objective Assessments Start: 10/25/18 08:47 Freq: Status: Active Protocol: Document 10/27/18 10:04 [facility] (Rec: 10/27/18 10:28 [facility] [email or web address]) OT Gross Range of Motion Upper Extremity Range of Motion Assessment Within Functional Limits OT Strength Upper Extremity Strength Assessment Within Functional Limits M9 OT- IP Assessment and Plan Start: 10/25/18 08:47 Freq: Status: Active Protocol: Document 10/27/18 10:04 [facility] (Rec: 10/27/18 10:28 [facility] [email or web address]) OT Summary Assessment and Plan Potential Rehabilitation Potential Good Analytic Complexity at Evaluation Low Summary OT Impairments Pain Strength Balance Functional Cognition Functional Mobility Grooming Dressing Toileting Bathing Toilet Transfers Shower Transfers Progress Towards Goals Slow Progress due to Pain Slow Progress due to Activity Tolerance Slow Progress due to Cognition Assessment Summary Pt low complexity and main barrier is pain, activity tolerance, a bit groogy from pain medications and having trouble remembering back precautions. OT to continue to see pt for training to incorporate back precautions for ADL needs and family training. At this time pending medical stability pt to go home with significant other. Goals Grooming Goal Standby Assistance Dressing Goal Standby Assistance Toileting Goal Standby Assistance Bathing Goal Minimal Assistance Toilet Transfer Goal Standby Assistance Shower Transfer Goal Contact Guard Assistance Patient/Caregiver Education Goal Demonstrate Post-Op Precautions Caregiver Independent Assisting Patient Days to Meet Goals 5 Frequency of Treatment Frequency Of Treatment Once a Day Treatment Plan OT Treatment Plan ADL Training Functional Cognition Training Functional Mobility Patient/Family Education Discharge Planning Other Treatment Recommendations and Next AED practice for ADl's. Treatment Focus Discharge Recommendations OT Discharge Recommendations Home with Assistance Other Discharge Recommendations Pt doing well today, however pending medical progress and stability due to extensive back surgery may need skilled rehab. Home Equipment Needs Shower chair, FWW
--- NOTE | 2018-10-27 14:09 | PT.IPTN ---
Current Diagnoses Other kyphosis, thoracolumbar region (10/24/18) Scoliosis, unspecified (10/24/18) Spinal stenosis, lumbar region with neurogenic claudication (10/24/18) Surgery Performed Operation Date: 10/24/18 07:45 Actual Procedures p L1-2, L2-3, L3-4, L4-5 XLIF; L5-S1 TLIF - Rodo Edmond MD Operation Date: 10/26/18 10:15 Actual Procedures p T10-L1, L2-3, L3-4, L4-L5, L5-S1 Posterior Instrumented Fusion, Possible L1-2, L2-3 laminectomies - Rodo Edmond MD Physical Therapy Treatment Note M2 PT-IP Current Condition Start: 10/24/18 15:49 Freq: NEEDED Status: Active Protocol: Document 10/27/18 13:56 NFW (Rec: 10/27/18 14:09 NFW NR) Physical Therapy Current Condition Current Condition Evaluation Date 10/27/18 Treatment Diagnosis T1-S1 TLIF Onset Date 10/24/18 Precautions Lumbar Precautions Log Roll No Twisting Limit Bending Lifting Restriction of 10 lbs Gait Belt above Incisional Area Other Precautions Discussion hip hinging vs flexion of the back. Limiting sitting and encouraging walking. Discussion techniques for tying shoes. Weight Bearing Status Weight Bearing Status Weight Bear as Tolerated M3 PT-IP Subjective Start: 10/24/18 15:49 Freq: NEEDED Status: Active Protocol: Document 10/27/18 13:56 NFW (Rec: 10/27/18 14:09 NFW NR) Subjective Physical Therapy Visit Type Type Treatment Note Visit Start Time 13:25 Visit Stop Time 13:56 Total Visit Minutes 31 Number of CUSTODIAN Visits 0 Physical Therapy Visit Comments Patient Comments Did get some rest this am but still tired. Patient Goals go home, move. Therapy Pain Assessment Pain When Pain Assessed At Rest Pain Present Pain Present Pain Reported FLACC Pain Scale Face No particular expression M4 PT-IP Mobility and Gait Start: 10/24/18 15:49 Freq: NEEDED Status: Active Protocol: Document 10/27/18 13:56 NFW (Rec: 10/27/18 14:09 NFW NR) PT-Bed Mobility Assessment Rolling Type of Rolling Log Rolling Roll to Left Level of Assist Standby Assistance 1 Person Assistance Supine to Sit Supine to Sit Minimal Assistance Sit to Supine Sit to Supine Minimal Assistance Scooting Scooting to Edge of Bed Standby Assistance Scooting Up and Down in Bed Standby Assistance PT-Transfer Assessment Sit to and From Stand Sit to and from Stand Contact Guard Assistance Equipment Transfer Assistive Device Gait Belt Front Wheeled Walker Transfers Transfer Destination Bed Chair Transfer Ability Level of Assist Contact Guard Assistance Comments Mobility Comments Verbal cuing required to assure proper positioning of lumbar spine with transitional activities especially supine to sit, stand to sit. Gait Assessment Gait Gait Assistance Required: Contact Guard Assist Distance (Feet) 50 Assistive Devices Assistive Device Gait Belt Front Wheeled Walker Gait Deviations General Gait Pattern Decreased Stride Length Decreased Feet Clearance Narrow Based Gait Factors Limiting Gait Function Factors Limiting Gait Function Decreased Sensation Pain Poor Safety Awareness Comments Gait Comments Legs felt weak with ambulation . Walked 25', rest then another 25'. PT-Balance Assessment Sitting Balance and Reactions Static Sitting Balance Ability Normal Dynamic Sitting Balance Ability Normal Standing Balance and Reactions Static Standing Balance Ability Good Dynamic Standing Balance Ability Good Device Used FWW M5 PT-IP Objective Assessments Start: 10/24/18 15:49 Freq: NEEDED Status: Active Protocol: Document 10/24/18 15:49 RS (Rec: 10/24/18 16:01 RS [id number]) Orientation Orientation/Cognition Level of Alertness Confusional State Orientation Name Age Birthday Month Date Year Day of Week Place Situation Safety Awareness Decreased Safety Awareness Comments Pt is quite tangential and at times mildly inappropriate in her story telling or comments. Gross Range of Motion Upper Extremity ROM Assessment Within Functional Limits Lower Extremity ROM Assessment Within Functional Limits Strength Upper Extremity Strength Assessment Within Functional Limits Comments Strength Comments BLE grossly 4/5 Sensation Assessment Sensation Light Touch Impaired Proprioception (Position) Impaired M6 PT-IP Treatment Start: 10/24/18 15:49 Freq: NEEDED Status: Active Protocol: Document 10/27/18 13:56 NFW (Rec: 10/27/18 14:09 [facility] [email or web address]) Physical Therapy Treatment Education Education Provided Precautions Post-Op Packet Safety M7 PT-IP Assessment and Plan Start: 10/24/18 15:49 Freq: NEEDED Status: Active Protocol: Document 10/27/18 13:56 NFW (Rec: 10/27/18 14:09 NFW [id number]) PT Summary Assessment and Plan Potential Rehabilitation Potential Excellent Status of Condition at Evaluation Stable Summary Impairments Pain Strength Balance Cognition Bed Mobility Transfers Gait Activity Tolerance Assessment Summary Pt more alert, receptive to all educational material provided. LE strength and endurance low. No problems with nausea this pm. Frequency of Treatment Frequency Of Treatment Twice a Day Treatment Plan Physical Therapy Treatment Plan Bed Mobility Training Transfer Training Gait Training Balance Retraining Post Op Education Discharge Planning Other Recommendations and Next Treatment Patient has a 4WW at home vs Focus FWW, will need to assess appropriateness of 4WW. Recommendations To Nursing Amount of Assist Needed 1 Person Assist Discharge Recommendations PT Discharge Recommendations Home with Assistance Equipment Needed for Home Before Check need of FWW Discharge
--- NOTE | 2018-10-27 16:12 | PC.NURSE ---
Addendum entered by Belén Nova R.N. 10/27/18 22:18: Pt resting at intervals this evening. JESSICA dsg w/ dried shadow drainage noted. Med at 2200 w/ percolone 10mg for discomfort. HL intact/patent. Stable post op course. Continuie w/plan of care. Original Note: Pt resting quietly at this time. States discomfort 6/10, med w/ percolone at this time. SpO2 99% RA. JESSICA dsgs x 2 intact w/ small old drainage noted. Left hip dsg CDI. Nguyen cath patent clear yellow urine. Call light w/in reach.
[2018-10-27] MEDS: OXYCODONE IR 5 MG TABLET 10 MG PO (22:07)
[2018-10-27] MEDS: SENNOSIDES 8.6 MG TABLET 17.2 MG PO (22:08)
[2018-10-28 00:10] VITALS: BP 139/78; PULSE 81; RESP 16; TEMP 37.1; O2SAT 98
[2018-10-28] MEDS: OXYCODONE IR 5 MG TABLET PO (01:43)
[2018-10-28] MEDS: ALPRAZolam 0.25 MG TABLET 1 MG PO (03:04)
[2018-10-28] MEDS: hydrOXYzine pamoate 25 MG CAPSULE PO (04:24)
[2018-10-28] MEDS: OXYCODONE IR 5 MG TABLET 10 MG PO (05:02)
--- NOTE | 2018-10-28 05:50 | PC.NURSE ---
0145: 5mg of oxycodone given for pain 6/10. I asked if she wanted 10 mg, but pt only wanted 5mg. 0304: pt rates her pain 3/10 and said she was doing ok. pt anxious and reports that she is unable to turn to her side. I then helped her turn. I offered her xanax and she was happy about that. I also checked the dressing. it is intact, but one of the JESSICA box has the low vacuum indicator light on. 0420: pt c/o pain and asked me to remove the tape on her leg. pt started to raise her voice at me and upset because I could not give oxycodone till 0445. I offered her vistaril. pt kept yelling at me, so I excused my self for a few minutes..vistaril given and jacques removed. 0502: gave 10mg of oxycodone. call light in reach. bed alarm active.
[2018-10-28 06:10] VITALS: BP 148/93; PULSE 77; RESP 16; TEMP 36.6; O2SAT 98
[2018-10-28 06:23] LABS: Hemoglobin 9.2 g/dL (12.0-16.0)
[2018-10-28 07:15] VITALS: BP 148/89; PULSE 76; RESP 16; TEMP 37.1; O2SAT 97
--- NOTE | 2018-10-28 09:10 | PC.NURSE ---
AM Shift pt agitated and frustrated this AM. HERIBERTO Cotter (Benjamin) assessed and is aware. Shadowing is outlined. Reporting 3-4/10 pain. Using ice packs. Nguyen removed around 0430, voided 400 since. 1PA with FWW to BR. PT in room hoping to work with patient. Patient refusing breakfast stating, the smell of it is making me sick, but no nausea complains besides meal.
--- NOTE | 2018-10-28 09:30 | PT.IPTN ---
Current Diagnoses Other kyphosis, thoracolumbar region (10/24/18) Scoliosis, unspecified (10/24/18) Spinal stenosis, lumbar region with neurogenic claudication (10/24/18) Surgery Performed Operation Date: 10/24/18 07:45 Actual Procedures p L1-2, L2-3, L3-4, L4-5 XLIF; L5-S1 TLIF - Rodo Edmond MD Operation Date: 10/26/18 10:15 Actual Procedures p T10-L1, L2-3, L3-4, L4-L5, L5-S1 Posterior Instrumented Fusion, Possible L1-2, L2-3 laminectomies - Rodo Edmond MD Physical Therapy Treatment Note M2 PT-IP Current Condition Start: 10/24/18 15:49 Freq: NEEDED Status: Active Protocol: Document 10/27/18 13:56 NFW (Rec: 10/27/18 14:09 NFW [id number]) Physical Therapy Current Condition Current Condition Evaluation Date 10/27/18 Treatment Diagnosis T1-S1 TLIF Onset Date 10/24/18 Precautions Lumbar Precautions Log Roll No Twisting Limit Bending Lifting Restriction of 10 lbs Gait Belt above Incisional Area Other Precautions Discussion hip hinging vs flexion of the back. Limiting sitting and encouraging walking. Discussion techniques for tying shoes. Weight Bearing Status Weight Bearing Status Weight Bear as Tolerated M3 PT-IP Subjective Start: 10/24/18 15:49 Freq: NEEDED Status: Active Protocol: Document 10/28/18 09:30 GGD (Rec: 10/28/18 11:27 GGD [id number]) Subjective Physical Therapy Visit Type Type Treatment Note Visit Start Time 09:00 Visit Stop Time 09:30 Total Visit Minutes 30 Number of BUTCHER HEAD Visits 1 Physical Therapy Visit Comments Patient Comments Pt states she want's to go home. Therapy Pain Assessment Pain When Pain Assessed At Rest Pain Present Pain Present Pain Reported FLACC Pain Scale Face No particular expression Location Lower Back Intensity 4 Scale Used Numeric (1 - 10) M4 PT-IP Mobility and Gait Start: 10/24/18 15:49 Freq: NEEDED Status: Active Protocol: Document 10/28/18 09:30 GGD (Rec: 10/28/18 11:27 GGD [id number]) PT-Bed Mobility Assessment Rolling Type of Rolling Log Rolling Roll to Left Level of Assist Standby Assistance 1 Person Assistance Supine to Sit Supine to Sit Standby Assistance Sit to Supine Sit to Supine Standby Assistance Scooting Scooting to Edge of Bed Standby Assistance Scooting Up and Down in Bed Standby Assistance PT-Transfer Assessment Sit to and From Stand Sit to and from Stand Contact Guard Assistance Equipment Transfer Assistive Device Gait Belt Front Wheeled Walker Transfers Transfer Destination Bed Transfer Ability Level of Assist Contact Guard Assistance Gait Assessment Gait Gait Assistance Required: Contact Guard Assist Distance (Feet) 80 Assistive Devices Assistive Device Gait Belt Front Wheeled Walker Gait Deviations General Gait Pattern Decreased Stride Length Decreased Feet Clearance Narrow Based Gait Factors Limiting Gait Function Factors Limiting Gait Function Decreased Sensation Pain Poor Safety Awareness M5 PT-IP Objective Assessments Start: 10/24/18 15:49 Freq: NEEDED Status: Active Protocol: Document 10/24/18 15:49 RS (Rec: 10/24/18 16:01 RS [id number]) Orientation Orientation/Cognition Level of Alertness Confusional State Orientation Name Age Birthday Month Date Year Day of Week Place Situation Safety Awareness Decreased Safety Awareness Comments Pt is quite tangential and at times mildly inappropriate in her story telling or comments. Gross Range of Motion Upper Extremity ROM Assessment Within Functional Limits Lower Extremity ROM Assessment Within Functional Limits Strength Upper Extremity Strength Assessment Within Functional Limits Comments Strength Comments BLE grossly 4/5 Sensation Assessment Sensation Light Touch Impaired Proprioception (Position) Impaired M6 PT-IP Treatment Start: 10/24/18 15:49 Freq: NEEDED Status: Active Protocol: Document 10/28/18 09:30 GGD (Rec: 10/28/18 11:27 GGD [id number]) Physical Therapy Treatment Education Education Provided Precautions M7 PT-IP Assessment and Plan Start: 10/24/18 15:49 Freq: NEEDED Status: Active Protocol: Document 10/28/18 09:30 GGD (Rec: 10/28/18 11:27 GGD [id number]) PT Summary Assessment and Plan Summary Assessment Summary Pt improving with mobility and gait. She did have increase in c/o leg pain with ambulation. She did need cues for log roll set up. Safe for home d/C when medically stable. Frequency of Treatment Frequency Of Treatment Twice a Day Treatment Plan Physical Therapy Treatment Plan Bed Mobility Training Transfer Training Gait Training Balance Retraining Post Op Education Discharge Planning Recommendations To Nursing Amount of Assist Needed 1 Person Assist Discharge Recommendations PT Discharge Recommendations Home with Assistance Equipment Needed for Home Before Check need of FWW Discharge
--- NOTE | 2018-10-28 09:37 | PM.DS.1 ---
History of Present Illness Date Patient Seen: 10/28/18 Time Patient Seen: 09:37 Chief complaint: [id number] Narrative: Hospital day 5, postop day 2 following 2nd stage thoracolumbar fusion T10 through S1 by Dr. Edmond. Patient is reported to not be able to sleep all night. Complaint of pain. She is able to get in and out of bed on her own. Catheter was removed and she has voided. Patient is anxious to be at home. She does have PIC0 dressings to her lumbar area but the VAC is leaking. S used oxycodone 5-10 mg and Vistaril. Physical therapy feels the patient is stable and able to be at home. She does complain of some numbness and tingling to her buttock and legs. Discharge Providers Date of admission: 10/24/18 06:04 Primary care physician: KRISTI Barajas Consults: 10/26/18 17:54 Consult to Occupational Therapy Evaluate & Treat Comment: Physician Instructions: Evaluate and treat Consult to Physical Therapy Evaluate & Treat Comment: Physician Instructions: Evaluate and Treat Discharge provider: Ag Flores PA-C Discharge Date: 10/28/18 Summary Discharge Diagnosis: Status post anterior lumbar fusion and posterior fusion T10 through S1 Hospital Course: Patient brought to hospital on 09/23/2018 for anterior lumbar fusion followed by posterior lumbar fusion on 10/26/[address] Edmond. Patient remained stable postoperatively. She had pain control off and on. She has been able to be up with physical therapy. Patient was stable on postop day 2 following the posterior fusion and requesting to go home. She was cleared by physical therapy. Status at Discharge Cognitive/behavioral status at discharge: Alert, responsive in no acute distress. Functional status at discharge: uses cane/walker Overall status at discharge: patient is progressing back to baseline Time Spent with Patient Less than 30 minutes Exam Vital Signs (past 8 hours): - 10/28/18 06:10 10/28/18 07:15 Temperature 97.9 F 98.7 F Pulse Rate 77 76 Respiratory Rate 16 16 Blood Pressure 148/93 H 148/89 H Pulse Oximetry 98 97 Oxygen Delivery Method Room Air Oxygen Flow Rate 0 Narrative Exam Narrative: Alert, responsive lying in bed in no acute distress. Back. Jen dressing to lumbar area is dry with dried blood to the left dressing. Battery appears to show leaking of the dressings. No signs of infection or inflammation. Legs. No calf pain or swelling. Pulses symmetrical. Good sensation to touch the lower legs. Objective Labs Result Diagrams: 10/28/18 05:58 Labs: Laboratory Results - last 24 hr 10/28/18 05:58 Hgb 9.2 L Hct 27.0 L Discharge Plan Discharge Plan Patient Disposition: Home Discharge comment: Patient will be discharged home today after cleared by physical therapy. Will take off jen dressing and apply CovRsite dressing to lumbar area. Discharge Med Rec/Prescriptions Prescriptions: New dexamethasone 4 mg Tablet 4 mg PO Q8HR Qty: 7 RF: 0 sennosides [senna] 8.6 mg Tablet 17.2 mg PO BEDTIME Qty: 10 RF: 0 docusate sodium 100 mg Capsule 100 mg PO BID Qty: 30 RF: 0 oxycodone 5 mg Tablet 10 mg PO Q3HR PRN (Reason: Pain, Severe (7-10)) Qty: 40 RF: 0 Continue sertraline 100 mg Tablet 150 mg PO DAILY Qty: 0 RF: 0 acetaminophen 325 MG tablet 1,000 mg PO BID PRN (Reason: pain) Qty: 0 RF: 0 alprazolam 1 mg Tablet 1 mg PO BID PRN (Reason: Anxiety) Qty: 0 RF: 0 ibuprofen 200 mg Tablet 3 - 4 tab PO QAM PRN (Reason: pain) RF: 0 albuterol sulfate [Ventolin HFA] 90 mcg/actuation Hfa Aerosol Inhaler 1 puff INHALATION Q4-6H PRN (Reason: nasal congestion, post-nasal ) RF: 0 propranolol 20 mg Tablet 20 mg PO BID RF: 0 Provider Discharge Instructions Diet: Diet as Tolerated Activity: Ambulate as tolerated. Avoid forceful bending or twisting. No lifting or carrying more than 5-10 lb. Skin/Wound/Dressing Care Report to your healthcare provider any signs of infection, such as:: chills, fever, night sweats, increased pain, unusual drainage and unusual redness Dressing: Keep CovRsite dressing in place until postop visit. Discharge Data Primary Care Provider: Veronica Smith Attending Provider: Rodo Edmond Admit Date/Time: 10/24/18 06:04
[2018-10-28] MEDS: PROPRANOLOL 10 MG TABLET 20 MG PO (10:20)
[2018-10-28] MEDS: CELECOXIB 200 MG CAPSULE PO (10:26)
[2018-10-28] MEDS: DEXAMETHASONE 4 MG TABLET PO (10:26)
[2018-10-28] MEDS: SERTRALINE 50 MG TABLET 150 MG PO (10:27)
[2018-10-28] MEDS: HYDROCODONE/ACET 5/325 TABLET 1 TAB PO (10:27)
[2018-10-28] MEDS: DOCUSATE 100 MG CAPSULE PO (10:27)
[2018-10-28 10:31] VITALS: PULSE 88; RESP 14; O2SAT 98
--- NOTE | 2018-10-28 13:20 | CM.DPC ---
DCP: continued: case received and discussed in Team Rounds. Ortho HERIBERTO Flores stated pt was ready for d/c today and was eager to go. PT agreed. Went to room just now; pt and her friend are in room, he has arrived to take her home and the RN is gathering final paperwork.
--- NOTE | 2018-10-28 13:31 | OT.IP.TRT ---
Current Diagnoses Other kyphosis, thoracolumbar region (10/24/18) Scoliosis, unspecified (10/24/18) Spinal stenosis, lumbar region with neurogenic claudication (10/24/18) Surgery Performed Operation Date: 10/24/18 07:45 Actual Procedures p L1-2, L2-3, L3-4, L4-5 XLIF; L5-S1 TLIF - Rodo Edmond MD Operation Date: 10/26/18 10:15 Actual Procedures p T10-L1, L2-3, L3-4, L4-L5, L5-S1 Posterior Instrumented Fusion, Possible L1-2, L2-3 laminectomies - Rodo Edmond MD Occupational Therapy Treatment Note M2 OT-IP Current Condition Start: 10/25/18 08:47 Freq: Status: Active Protocol: Document 10/27/18 10:04 [facility] (Rec: 10/27/18 10:28 [facility] [id number]) Occupational Therapy Current Condition Current Condition Evaluation Date 10/27/18 Treatment Diagnosis Lumbar Stenosis Diagnosis Onset Date 10/24/18 Post Operative Precautions Lumbar Precautions Log Roll No Twisting Limit Bending Lifting Restriction of 10 lbs Gait Belt above Incisional Area Weight Bearing Status Weight Bearing Status Weight Bear as Tolerated M3 OT- IP Subjective and Pain Start: 10/25/18 08:47 Freq: Status: Active Protocol: Document 10/28/18 13:30 [facility] (Rec: 10/28/18 13:31 [facility] [id number]) OT- Subjective Occupational Therapy Visit Type Type Patient Refusal Notes Finalized all OT needs with pt and pt has go understanding for all needs. Pt being discharged. No charge.
== END 2018-10-28 13:20 | disposition home or self-care (01) | DRG 454 ==
PROVIDERS: Admitting Provider Orthopaedic Surgery; PCP Nurse Practitioner; Visit Provider Orthopaedic Surgery
PROC: 0SG00A0 Fusion of Lumbar Vertebral Joint with Interbody Fusion Device, Anterior Approach, Anterior Column, Open Approach (ICD-10-PCS; CPT 22558; principal; 2018-10-24 07:45)
PROC: 0RGA071 Fusion of Thoracolumbar Vertebral Joint with Autologous Tissue Substitute, Posterior Approach, Posterior Column, Open Approach (ICD-10-PCS; principal; 2018-10-26 10:15)
DX: M41.86 Other forms of scoliosis, lumbar region (principal); D62 Acute posthemorrhagic anemia; M48.062 Spinal stenosis, lumbar region with neurogenic claudication; M40.295 Other kyphosis, thoracolumbar region; M81.0 Age-related osteoporosis without current pathological fracture; F41.9 Anxiety disorder, unspecified
CPT/HCPCS: 36415; 72100; 72110; 76001; 85014; 85018; 94760; 97116; 97162; 97165; 97530; 97535; C1776; C9290; J0131; J0330; J0595; J0690; J1100; J1170; J2060; J2274; J2405; J2704; J3010

== ENCOUNTER → 2020-01-15 14:28 | Outpatient (ROUT) | payer MEDICARE, OTHER, SELFPAY ==
[2018-10-24 13:41] VITALS: BMI 28.6
[2020-01-15 20:17] LABS: BUN Creatinine Ratio 41.7 (6-22); Blood Urea Nitrogen 25 mg/dL (7-17); Calcium 9.7 mg/dL (8.4-10.2); Carbon Dioxide 24 mmol/L (22-32); Chloride 106 mmol/L (98-107); Estimated Glomerular Filt Rate > 60.0 mL/min (>60); Glucose 107 mg/dL (80-110); HEMOLYSIS < 15 (0-50); Sodium 139 mmol/L (137-145)
== END ==
PROVIDERS: PCP Nurse Practitioner; Visit Provider Internal Medicine
DX: I10 Essential (primary) hypertension (principal)
CPT/HCPCS: 80048; 84443

== ENCOUNTER 2020-01-18 15:44 | Emergency (ER) | payer MEDICARE, OTHER, SELFPAY ==
[2018-10-24 13:41] VITALS: BMI 28.6
[2020-01-18 15:54] VITALS: BP 196/96; PULSE 76; RESP 14; TEMP 36.3; O2SAT 99; BMI 31.8
--- NOTE | 2020-01-18 16:03 | DI.RAD.S_ITS ---
PROCEDURE: XR CHEST 1V INDICATIONS: chest pain TECHNIQUE: One view of the chest was acquired. COMPARISON: [facility], , CHEST 2 VIEW, 08/16/2011, 12:17. FINDINGS: Surgical changes and devices: Thoracolumbar fusion, cervical fusion. Lungs and pleura: Lungs are clear. No pleural effusions or pneumothorax. Mediastinum: Mediastinal contours appear normal. Mild cardiomegaly. Bones and chest wall: No suspicious bony lesions. Overlying soft tissues appear unremarkable. IMPRESSION: Mild cardiomegaly. No evidence acute pulmonary process. Dictated by: Ladarius Ochoa M.D. on 01/18/2020 at 17:13 Approved by: Ladarius Ochoa M.D. on 01/18/2020 at 17:14
[2020-01-18 16:56] VITALS: BP 203/112; PULSE 75; RESP 16; O2SAT 97
[2020-01-18 17:00] VITALS: BP 183/106; PULSE 72; RESP 25; O2SAT 97
[2020-01-18 18:00] VITALS: BP 199/112; PULSE 70; RESP 16; O2SAT 98
--- NOTE | 2020-01-18 18:06 | ED.GENADULT ---
HPI - General Adult <KRISTI Wagner - Last Filed: 01/18/20 20:17> General Chief complaint: Hypertension Stated complaint: high blood pressure Time Seen by Provider: 01/18/20 16:50 Source: patient Mode of arrival: Ambulatory Limitations: no limitations History of Present Illness HPI narrative: This is a 59-year-old female, former smoker, who presents to ED with chief complain of elevated blood pressure. Patient visited Dr. Fitzgerald at [facility] and she was referred to ED for an evaluation of elevated blood pressure, intermittent pain in below her boobs bilaterally for 2 weeks and radiates to her back. Patient reports no associated symptoms such as breathing difficulty, dizziness, nausea or vomiting, sweaty feelings when she has this chest discomfort and at times patient is weak in up from sleep due to pain. Patient reports pain improves when she relaxes and not thinking about pain. Patient was seen by Dr. Johanne Conte 3 days ago as a routine follow-up and was prescribed new blood pressure medication amlodipine 10 mg in addition to losartan 100 mg daily and metoprolol ER 100 mg daily. However, patient forgot to pick this medication up and has not started yet. Patient also states she gained about 20 lb over winter and had a long discussion with Dr. Johanne Conte about this with elevated blood pressure and healthy lifestyle. Patient thinks her chest and back pain is related to her bad back and neck. Patient reports last stress test was about [address] Johanne Conte is in process to refer her for another stress test. Patient has history of hypertension, lap band surgery, back and neck surgery, trigger thumb repair. Patient reports she quit smoking 20 years ago with duration of 3 months for smoking. Related Data Home Medications Medication Instructions Recorded Confirmed acetaminophen 1,000 mg PO BID PRN #0 03/20/10 01/18/20 ibuprofen 3 - 4 tab PO QAM PRN 10/09/18 01/18/20 losartan 100 mg tablet 100 mg PO DAILY 11/13/19 01/18/20 metoprolol succinate 100 mg 100 mg PO DAILY 11/13/19 01/18/20 tablet,extended release 24 hr Previous Rx's Medication Instructions Recorded alprazolam 0.5 mg tablet 0.5 mg PO BID PRN #60 tab 11/13/19 escitalopram oxalate 10 mg tablet 15 mg PO DAILY #45 tab 12/17/19 Allergies Allergy/AdvReac Type Severity Reaction Status Date / Time No Known Drug Allergies Allergy Verified 01/18/20 15:54 Review of Systems <KRISTI Wagner - Last Filed: 01/18/20 20:17> Review of Systems Narrative: General: Denies fever, chills, fatigue, malaise, sweats. HEENT: Denies sinus pain, ear pain, sore throat, difficulty swallowing, dizziness. Respiratory: Denies dyspnea, cough, wheezing, hemoptysis, sputum. Cardiovascular: Denies (+) bilatereal lower chest pain to back, palpitations, orthopnea, edema. Gastrointestinal: Denies nausea, vomiting, abdominal pain, diarrhea, constipation, melena. : Denies dysuria, frequency, incontinence, hematuria, urinary retention. Musculoskeletal: Denies weakness, joint pain or bony pain (+) back and neck pain. Skin: Denies rash, skin lesions, or other. Neurologic: Denies weakness, headache, numbness, change in speech, confusion, seizures, incoordination. Psychiatric: No concerning psychosocial issues. 12-point review of systems is negative except for those stated above. Patient History <KRISTI Wagner - Last Filed: 01/18/20 20:17> Medical History Chronic diarrhea (Acute) Depression (Acute) Easy bruisability (Acute) Facial lesion (Acute) Failed cervical fusion (Acute ~2007) Fecal incontinence (Acute) Hearing loss (Acute) History of UTI (Acute) HTN (hypertension) (Acute) Numbness and tingling (Acute) Pneumonia (Acute) RLS (restless legs syndrome) (Acute) Sinus infection (Acute ~2007) Stomach ulcer (Acute) Tinnitus of right ear (Acute) Trauma in childhood (Acute) Trigger thumb, left thumb (Acute) Surgical History History of ankle surgery (Acute ~2003) Hx of colonoscopy (Acute) Hx of laparoscopic gastric banding (Acute ~2004) Social History household members: significant other Smoking Status: Former smoker alcohol intake: current Smoking Status: Former smoker alcohol intake frequency: a few times a week Substance Use Type: marijuana Exam <AMARIS WagnerP - Last Filed: 01/18/20 20:17> Narrative Exam Narrative: GEN: Alert, oriented x 3, well appearing and nourished, and in no acute distress. Head: Normal cephalic, atraumatic. No scalp or temporal tenderness, palpable mass or rash. EYES: Pupils are equal, round, and reactive to light and accommodation. Extraocular muscles are intact bilaterally. There is no subconjunctival hemorrhage, exudate and sclera non-icteric. ENT: Bilateral auditory canals and tympanic membranes clear. Hearing grossly intact. Nose without bleeding, purulent discharge or deviation. Facial sinuses nontender to palpate. Mucous membrane moist, no mucosal lesion. Throat without erythema, tonsillar hypertrophy or exudate. Uvula in midline, airway patent. Neck: Trachea in midline. No JVD, non-tender without lymphadenopathy. No masses or thyroid megaly. Supple, non-tender and no meningeal signs. CARDIAC: Normal regular rate and rhythm without murmurs, gallops, or rubs. No chest wall tenderness. No peripheral edema, cyanosis or pallor. Capillary refill is less than 2 seconds. RESPIRATORY: Lungs are clear to auscultate bilaterally. No cough, wheezes, rales, or rhonchi. No stridor, respiratory distress, increase work of breathing, or accessary muscle used. ABD: Abdomen soft, nontender and non-distended. No guarding or rebound tenderness to palpate. Bowel sounds are normal in all 4 quadrants. There is no palpable masses or organomegaly. EXT: Full painless ROM of all extremities with no loss of sensation, strength, effusion or edema. SKIN: Warm, dry, normal color for patient. No erythema, lesions or rash over visible areas. BACK: Nontender without deformity or crepitance. No flank tenderness. NEUROLOGICAL: Alert and oriented to place, time and person. Sensation and motor function intact bilaterally. No facial droops, dysphasia. PSYCHIATRIC: Good judgement and reason, without hallucinations, abnormal affect or abnormal behaviors during the examination. Initial Vital Signs Initial Vital Signs: Vital Signs Temperature 97.3 F L 01/18/20 15:54 Pulse Rate 76 01/18/20 15:54 Respiratory Rate 14 01/18/20 15:54 Blood Pressure 196/96 H 01/18/20 15:54 Pulse Oximetry 99 01/18/20 15:54 <Benji Gomes DO - Last Filed: 01/18/20 20:18> Initial Vital Signs Initial Vital Signs: Vital Signs Temperature 97.3 F L 01/18/20 15:54 Pulse Rate 76 01/18/20 15:54 Respiratory Rate 14 01/18/20 15:54 Blood Pressure 196/96 H 01/18/20 15:54 Pulse Oximetry 99 01/18/20 15:54 Scores <KRISTI Wagner - Last Filed: 01/18/20 20:17> GCS Thomas coma scale eye opening: Spontaneous [place] coma scale verbal response: Orientated Thomas coma scale motor response: Obey commands [place] coma scale total score: 15 HEART Score Heart Score history: Slightly Suspicious Heart Score EKG: Non-Specific repolarization disturbance Heart Score Age: 45-64 years old Heart Score risk factors: 1-2 risk factors Heart Score troponin: < or = to normal limit Heart Score Total: 3 Course <KRISTI Wagner - Last Filed: 01/18/20 20:17> Orders Ordered: ED Orders 01/18/20 16:03 XR chest 1V Stat EKG-12 Lead Stat 01/18/20 18:38 Complete Blood Count AUTO DIFF Stat Comprehensive Metabolic Panel Stat Lipase Stat Partial Thromboplastin Time Stat Prothrombin Time INR Stat Troponin & CK Cardiac Panel Stat Discontinued Medications Amlodipine Besylate (Norvasc) 10 mg PO NOW ONE Stop: 01/18/20 18:06 Last Admin: 01/18/20 18:16 Dose: 10 mg Documented by: PEREZ Vital Signs Vital signs: Vital Signs - 8 hr 01/18/20 15:54 01/18/20 16:56 01/18/20 17:00 Temperature 97.3 F L Pulse Rate 76 75 72 Respiratory Rate 14 16 25 H Blood Pressure 196/96 H Blood Pressure [Right Arm] 203/112 H 183/106 H Pulse Oximetry 99 97 97 01/18/20 18:00 01/18/20 19:39 Temperature Pulse Rate 70 68 Respiratory Rate 16 18 Blood Pressure Blood Pressure [Right Arm] 199/112 H 192/91 H Pulse Oximetry 98 97 <Benji Gomes DO - Last Filed: 01/18/20 20:18> Orders Ordered: ED Orders 01/18/20 16:03 XR chest 1V Stat EKG-12 Lead Stat 01/18/20 18:38 Complete Blood Count AUTO DIFF Stat Comprehensive Metabolic Panel Stat Lipase Stat Partial Thromboplastin Time Stat Prothrombin Time INR Stat Troponin & CK Cardiac Panel Stat Discontinued Medications Amlodipine Besylate (Norvasc) 10 mg PO NOW ONE Stop: 01/18/20 18:06 Last Admin: 01/18/20 18:16 Dose: 10 mg Documented by: PEREZ Vital Signs Vital signs: Vital Signs - 8 hr 01/18/20 15:54 01/18/20 16:56 01/18/20 17:00 Temperature 97.3 F L Pulse Rate 76 75 72 Respiratory Rate 14 16 25 H Blood Pressure 196/96 H Blood Pressure [Right Arm] 203/112 H 183/106 H Pulse Oximetry 99 97 97 01/18/20 18:00 01/18/20 19:39 Temperature Pulse Rate 70 68 Respiratory Rate 16 18 Blood Pressure Blood Pressure [Right Arm] 199/112 H 192/91 H Pulse Oximetry 98 97 Medical Decision Making <KRISTI Wagner - Last Filed: 01/18/20 20:17> Differential Diagnosis Differential Diagnosis: atypical chest pain, ACS, hypertensive crisis Medical Records Medical records reviewed: Yes I reviewed the patient's medical records. Lab Data Lab results reviewed: Yes I reviewed the patient's lab results. Result diagrams: 01/18/20 18:38 01/18/20 18:38 Labs: Lab Results 01/18/20 01/18/20 01/18/20 Range/Units 18:38 18:38 18:38 WBC 5.6 (4.5-11.0) X10^3/uL RBC 3.40 L (4.0-5.2) X10^6/uL Hgb 11.4 L (12.0-16.0) g/dL Hct 33.8 L (36-46) % MCV 99.5 (80-100) fL MCH 33.4 (26-34) PG MCHC 33.6 (30-36) % RDW 14.4 (11.6-14.8) % Plt Count 235 (150-400) X10^3/uL Neut % (Auto) 61.0 (50-75) % Lymph % (Auto) 27.6 (25-40) % Richardson % (Auto) 8.3 (3-14) % Eos % (Auto) 2.1 (2-4) % Baso % (Auto) 1.0 (0-2) % Neut # (Auto) 3400 (5304-1921) /uL Lymph # (Auto) 1500 (6538-3385) /uL Richardson # (Auto) 500 (0-900) /uL Eos # (Auto) 100 (0-450) /uL Baso # (Auto) 100 (0-100) /uL PT 11.2 (10.1-12.7) SECONDS INR 1.0 (0.9-1.3) APTT 32 (26.4-36.2) SECONDS Sodium 139 (137-145) mmol/L Potassium 3.4 (3.4-5.1) mmol/L Chloride 105 (98-107) mmol/L Carbon Dioxide 27 (22-32) mmol/L BUN 15 (7-17) mg/dL Creatinine 0.60 (0.52-1.04) mg/dL Estimated GFR > 60.0 (>60) mL/min BUN/Creatinine Ratio 25.0 H (6-22) Glucose 103 (80-110) mg/dL Calcium 9.6 (8.4-10.2) mg/dL Total Bilirubin 0.7 (0.2-1.3) mg/dL AST 28 (14-36) IU/L ALT 14 (<35) IU/L Alkaline Phosphatase 68 (38-126) U/L Total Creatine Kinase 50 (30-135) U/L CK-MB (CK-2) TNP CK-MB (CK-2) Rel Index TNP Troponin I < 0.012 (0.01-0.034) ng/mL Total Protein 7.4 (6.3-8.2) g/dL Albumin 4.5 (3.5-5.0) g/dL Globulin 2.9 (1.7-4.1) g/dL Albumin/Globulin Ratio 1.6 (1.0-2.8) Lipase 153 (23-300) U/L Imaging Data Chest x-ray: Radiologist's Impression: [address] [address] XRay Report Signed Patient: Yifan Finch#: [id number] : 9Acct:[id number] Age/Sex: 59 / FDate of Service: 01/18/20 Loc: ED Accession Number: [id number] Procedure: XR chest 1V Ordering Provider: Benji Gomes D.O. PROCEDURE: XR CHEST 1V INDICATIONS: chest pain TECHNIQUE: One view of the chest was acquired. COMPARISON: [facility], CHEST 2 VIEW, 08/16/2011, 12:17. FINDINGS: Surgical changes and devices: Thoracolumbar fusion, cervical fusion. Lungs and pleura: Lungs are clear. No pleural effusions or pneumothorax. Mediastinum: Mediastinal contours appear normal. Mild cardiomegaly. Bones and chest wall: No suspicious bony lesions. Overlying soft tissues appear unremarkable. IMPRESSION: Mild cardiomegaly. No evidence acute pulmonary process. Dictated by: Ladarius Ochoa M.D. on 01/18/2020 at 17:13 Approved by: Ladarius Ochoa M.D. on 01/18/2020 at 17:14 ECG Data Attestation: I personally reviewed and interpreted this ECG as follows: Prior ECG tracings: not available for review Interpretation: Sinus rhythm rate at 74. Normal Ethel. Possible left atrial enlargement. DC int 153, QRS dur 82, QT/QTC 380/[address] and T-wave abnormality MDM Narrative Medical decision making narrative: EKG is NSR with nonspecific ST and T-wave abnormality with possible left atrial enlargement. No previous EKG was available to review. Chest x-ray shows mild cardiomegaly without acute pulmonary process findings. Patient's cardiac enzymes were negative. Given patient has been having this bilateral below breast chest discomfort radiating to back without other associated symptoms such as dyspnea, lightheadedness, nausea/vomiting, sweaty symptoms intermittent for 2 weeks 2nd cardiac enzyme was not drawn and patient is asymptomatic. Patient was medicated with amlodipine 10 mg as her primary care physician, Dr. Johanne Conte, prescribed 3 days ago which patient has not started yet. Patient's blood pressure has improved to 192/91 at this time. Patient probably has been having significantly elevated blood pressure for a while as patient explains to me that blood pressure at the doctor's office was greater than 200. Patient advised to start her blood pressure medications as instructed and monitor this and track it to share with her PCP for possible medication dose change. Patient also advised to follow-up with stress test as Dr. Conte is planning to. We discussed weight management, taking low-sodium diet to help with elevated blood pressure. Strict return precautions were discussed with the patient and patient verbalized understanding and in agreement with treatment plan. <Benji Gomes DO - Last Filed: 01/18/20 20:18> Lab Data Labs: Lab Results 01/18/20 01/18/20 01/18/20 Range/Units 18:38 18:38 18:38 WBC 5.6 (4.5-11.0) X10^3/uL RBC 3.40 L (4.0-5.2) X10^6/uL Hgb 11.4 L (12.0-16.0) g/dL Hct 33.8 L (36-46) % MCV 99.5 (80-100) fL MCH 33.4 (26-34) PG MCHC 33.6 (30-36) % RDW 14.4 (11.6-14.8) % Plt Count 235 (150-400) X10^3/uL Neut % (Auto) 61.0 (50-75) % Lymph % (Auto) 27.6 (25-40) % Richardson % (Auto) 8.3 (3-14) % Eos % (Auto) 2.1 (2-4) % Baso % (Auto) 1.0 (0-2) % Neut # (Auto) 3400 (2444-8741) /uL Lymph # (Auto) 1500 (2032-4563) /uL Richardson # (Auto) 500 (0-900) /uL Eos # (Auto) 100 (0-450) /uL Baso # (Auto) 100 (0-100) /uL PT 11.2 (10.1-12.7) SECONDS INR 1.0 (0.9-1.3) APTT 32 (26.4-36.2) SECONDS Sodium 139 (137-145) mmol/L Potassium 3.4 (3.4-5.1) mmol/L Chloride 105 (98-107) mmol/L Carbon Dioxide 27 (22-32) mmol/L BUN 15 (7-17) mg/dL Creatinine 0.60 (0.52-1.04) mg/dL Estimated GFR > 60.0 (>60) mL/min BUN/Creatinine Ratio 25.0 H (6-22) Glucose 103 (80-110) mg/dL Calcium 9.6 (8.4-10.2) mg/dL Total Bilirubin 0.7 (0.2-1.3) mg/dL AST 28 (14-36) IU/L ALT 14 (<35) IU/L Alkaline Phosphatase 68 (38-126) U/L Total Creatine Kinase 50 (30-135) U/L CK-MB (CK-2) TNP CK-MB (CK-2) Rel Index TNP Troponin I < 0.012 (0.01-0.034) ng/mL Total Protein 7.4 (6.3-8.2) g/dL Albumin 4.5 (3.5-5.0) g/dL Globulin 2.9 (1.7-4.1) g/dL Albumin/Globulin Ratio 1.6 (1.0-2.8) Lipase 153 (23-300) U/L Discharge Plan Departure Patient Disposition: Home Clinical Impression: Atypical chest pain, Benign essential HTN Activity Restrictions/Additional Instructions: You have been diagnosed with [atypical chest pain and severely elevated blood pressure. Her EKG and cardiac enzymes were uneventful. Chest x-ray shows mild cardiomegaly without acute findings. Please monitor blood pressure once or twice a day around same time and keep track on these numbers and bring this to your doctor's next appointment]. What to do: *Take your medications as directed. 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 You were medicated with amlodipine here while in ED as your doctor has prescribed along other blood pressure medications losartan and metoprolol. *Follow up with your primary care provider in 2-3 days, call for an appointment. Let them know you were seen in the ED and that we asked you to be seen in follow up. *Return to ED if you have any new, worsening, or concerning symptoms, such as [different type of chest pain, breathing difficulty, nausea/vomiting, dizziness, sweaty, severe headache, vision change, stroke-like symptoms, or any acute concerns]. Prescriptions: No Action metoprolol succinate 100 mg tablet extended release 24 hr 100 mg PO DAILY RF: 0 losartan 100 mg tablet 100 mg PO DAILY RF: 0 alprazolam 0.5 mg tablet 0.5 mg PO BID PRN (Reason: Anxiety) Qty: 60 RF: 1 acetaminophen 325 MG tablet 1,000 mg PO BID PRN (Reason: pain) Qty: 0 RF: 0 escitalopram oxalate 10 mg tablet 15 mg PO DAILY Qty: 45 RF: 2 ibuprofen 200 mg Tablet 3 - 4 tab PO QAM PRN (Reason: pain) RF: 0 Referrals: Johanne Conte MD [Physician] -
[2020-01-18] MEDS: AMLODIPINE 2.5 MG TABLET 10 MG PO (18:16)
--- NOTE | 2020-01-18 18:39 | PC.NURSE ---
Marketing And Development Coordinator in room.
[2020-01-18 18:47] LABS: Add Manual Diff / Slide Review NO; Basophils Absolute Auto 100 /uL (0-100); Eosinophils Absolute Auto 100 /uL (0-450); Eosinophils Percent Auto 2.1 % (2-4); Hematocrit 33.8 % (36-46); Hemoglobin 11.4 g/dL (12.0-16.0); Lymphocytes Absolute Auto 1500 /uL (1100-4500); Lymphocytes Percent Auto 27.6 % (25-40); Mean Corpuscular HGB Conc 33.6 % (30-36); Mean Corpuscular Hemoglobin 33.4 PG (26-34); Mean Corpuscular Volume 99.5 fL (80-100); Monocytes Absolute Auto 500 /uL (0-900); Monocytes Percent Auto 8.3 % (3-14); Neutrophils Absolute Auto 3400 /uL (1500-7000); Platelet Count 235 X10^3/uL (150-400); Red Cell Distribution Width 14.4 % (11.6-14.8); White Blood Cell Count 5.6 X10^3/uL (4.5-11.0)
[2020-01-18 18:53] LABS: Prothrombin Time 11.2 SECONDS (10.1-12.7)
[2020-01-18 18:56] LABS: PTT Partial Thromboplastin Tim 32 SECONDS (26.4-36.2)
[2020-01-18 18:59] LABS: Alanine Aminotransferase 14 IU/L (<35); Albumin 4.5 g/dL (3.5-5.0); Albumin Globulin Ratio 1.6 (1.0-2.8); Alkaline Phosphatase 68 U/L (38-126); Aspartate Aminotransferase 28 IU/L (14-36); Bilirubin Total 0.7 mg/dL (0.2-1.3); Blood Urea Nitrogen 15 mg/dL (7-17); Calcium 9.6 mg/dL (8.4-10.2); Carbon Dioxide 27 mmol/L (22-32); Chloride 105 mmol/L (98-107); Creatine Kinase 50 U/L (30-135); Estimated Glomerular Filt Rate > 60.0 mL/min (>60); Globulin 2.9 g/dL (1.7-4.1); Glucose 103 mg/dL (80-110); HEMOLYSIS < 15 (0-50); Lipase 153 U/L (23-300); Potassium 3.4 mmol/L (3.4-5.1); Sodium 139 mmol/L (137-145); Total Protein 7.4 g/dL (6.3-8.2)
[2020-01-18 19:10] LABS: Troponin I < 0.012 ng/mL (0.01-0.034)
[2020-01-18 19:39] VITALS: BP 192/91; PULSE 68; RESP 18; O2SAT 97
== END 2020-01-18 20:34 | disposition home or self-care (01) ==
PROVIDERS: Emergency Medicine; Emergency Provider Nurse Practitioner Family; PCP Nurse Practitioner; Referring Provider Psychiatry & Neurology Psychiatry
DX: R07.89 Other chest pain (principal); I10 Essential (primary) hypertension; F41.1 Generalized anxiety disorder; F32.9 Major depressive disorder, single episode, unspecified; T14.90XA Injury, unspecified, initial encounter
CPT/HCPCS: 36415; 71045; 80053; 82550; 83690; 84484; 85025; 85610; 85730; 93005; 99214; 99284; 99285

== ENCOUNTER → 2020-02-13 19:02 | Outpatient (CLI) | payer MEDICARE, OTHER, SELFPAY ==
[2018-10-24 13:41] VITALS: BMI 28.6
--- NOTE | 2020-02-13 | DI.MRI.S_ITS ---
PROCEDURE: MR THORACIC SPINE WO CON INDICATIONS: PAIN IN THORACIC SPINE TECHNIQUE: Noncontrast sagittal T1 spine echo and T2 fast spin echo, sagittal STIR, axial T1 and T2 fast spin echo through the thoracic spine. COMPARISON: [facility], CR, XR THORACIC SPINE 3 VIEWS, 08/29/2017, 12:27. [facility], CR, XR CERVICAL SPINE 2 OR 3 VIEWS, 07/27/2018, 13:52. [facility], CR, XR LUMBAR SPINE 2 OR 3 VIEWS, 08/01/2019, 13:08. [facility], CR, XR THORACIC SPINE 2 VIEWS, 02/04/2020, 9:06. FINDINGS: Image quality: Excellent. Alignment and Curvature: There is normal bony alignment. Bone Marrow: There are postsurgical changes in the thoracolumbar spine from T10 through S1. Surgical fusion is also noted in the lower cervical spine. Metallic artifacts partially obscure surrounding areas. Marrow is of normal overall signal. No acute vertebral body compression fractures. Spinal Cord: There is increased T2 signal in the thoracic cord at level of T9-T10 consist with myelopathy. The distal spinal cord below T10 demonstrate decreased caliber, consistent chronic myelopathy. Paraspinous Soft Tissues: No paravertebral masses. Miscellaneous: T9-T10: There is large posterior left paramedian disc extrusion at T9-T10 with the extruded disc measuring 6 mm AP, 11 mm transverse and 6 mm cephalocaudal , which occupies the left anterior left spinal canal and the left lateral recess, impinging the left anterior aspect of the cord and the left T9 nerve root. A 6 x 6 x 6 mm right posterior paramedian disc protrusion is seen. There is moderate overall central canal stenosis at T10-T11. Severe bilateral foramina stenosis. T9-T10: Surgically fused. There is posterior disc bulge. Mild central canal stenosis and moderate bilateral foramina stenosis. T11-T12: There is diffuse posterior disc bulge and posterior paramedian disc extrusion bilaterally causing moderate central canal stenosis and moderate bilateral foraminal stenosis. T12-L1: Incompletely visualized. There appears to be moderate central canal stenosis and at least moderate bilateral foraminal stenosis. IMPRESSION: 1. There is focal abnormal signal in the spinal cord at the level of T9-T10 consistent with myelopathy. The distal spinal cord below T2 demonstrates decreased caliber likely sequelae of chronic myelopathy. 2. Large posterior and bilateral posterior paramedian disc extrusion at T9-T10 , left greater right, with mass effect compressing the anterior left aspect of the spinal cord. A large disc fragment occupies the left lateral recess causing nerve root impingement. There is overall moderate central canal stenosis and severe bilateral foramina stenosis. 3. Diffuse posterior disc bulge and bilateral posterior paramedian disc extrusion at T11-T. 12 causing moderate central canal stenosis and moderate bilateral foraminal stenosis. Dictated by: Bethany Villagran M.D. on 02/14/2020 at 9:01 Approved by: Bethany Villagran M.D. on 02/14/2020 at 9:24
== END ==
PROVIDERS: PCP Nurse Practitioner; Referring Provider Orthopaedic Surgery; Visit Provider Orthopaedic Surgery
DX: M51.24 Other intervertebral disc displacement, thoracic region (principal); M48.04 Spinal stenosis, thoracic region; Z98.1 Arthrodesis status
CPT/HCPCS: 72146

== ENCOUNTER → 2020-03-07 08:08 | Outpatient (CLI) | payer MEDICARE, OTHER, SELFPAY ==
[2018-10-24 13:41] VITALS: BMI 28.6
--- NOTE | 2020-03-07 | DI.NM.S_ITS ---
PROCEDURE: NM MANAS PERF SPECT R&S PHARM Rest and pharmacological stress myocardial perfusion SPECT with gated imaging and ejection fraction RADIOPHARMACEUTICAL: 25.2 mCi Tc-99m tetrafosmin IV at rest and 26.3 mCi Tc-99m tetrafosmin IV at peak effect of pharmacological stress. [id number] was performed. INDICATIONS: Chest pain TECHNIQUE: Radiopharmaceutical was injected at peak stress test, and also at rest. SPECT images were obtained. SPECT myocardial perfusion images were displayed in short axis, horizontal long axis, and vertical long axis views. Gated images were reviewed using [employer] software. COMPARISON: None. CARDIAC STRESS: A pharmacologic stress test was performed under the supervision of an attending staff, using an infusion of lexiscan 0.4mg IV X1. Hemodynamic data: There is normal blood pressure and heart rate response to pharmacologic stress. Symptoms: The patient denied anginal chest pain. Aminophylline: none EKG: Resting ECG showed sinus rhythm with diffuse T wave inversions. No diagnostic changes of ischemia with lexiscan; no ectopy. FINDINGS: Raw data: There is good myocardial uptake of radiotracer. No significant motion artifacts. [id number] ratio is 0.37 (normal is less than 0.38 for tetrafosmin tracer). Left ventricle function: Gated images demonstrate normal left ventricular wall thickening. No segmental wall motion abnormalities. No transient ischemic dilation; TID is 0.94 (normal less than 1.3). Left ventricle resting end diastolic volume is 103 mL. Left ventricle stress ejection fraction is 77%; normal range is above 45%. Myocardial perfusion: There is normal distribution of activity in the right and left ventricular myocardium. No fixed or reversible perfusion defects. IMPRESSION: Low risk, normal pharmaceutical nuclear stress test. 1) No perfusion evidence of ischemia or infarction. 2) Normal left ventricular size, wall motion, and systolic function (EF post stress 77%). 3) No ECG evidence of ischemia. 4) No angina during the study. 5) No prior nuclear stress test available for comparison. 1)d Dictated by: Omaira Maldonado MD on 03/11/2020 at 11:22 Approved by: Omaira Maldonado MD on 03/11/2020 at 11:25
== END ==
PROVIDERS: PCP Internal Medicine; Referring Provider Internal Medicine; Visit Provider Internal Medicine
DX: R07.9 Chest pain, unspecified (principal)
CPT/HCPCS: 78452; 93017; A9502; J2785

== ENCOUNTER → 2020-04-13 16:45 | Outpatient (ROUT) | payer MEDICARE, OTHER, SELFPAY ==
[2018-10-24 13:41] VITALS: BMI 28.6
[2020-04-14 01:54] LABS: COVID19 Sendout Not Detected (Not Detect)
== END ==
PROVIDERS: PCP Internal Medicine; Visit Provider Registered Nurse
DX: Z01.818 Encounter for other preprocedural examination (principal)
CPT/HCPCS: 87635

== ENCOUNTER 2021-03-12 10:52 | Inpatient (IN) | payer MEDICARE, OTHER, SELFPAY ==
[2018-10-24 13:41] VITALS: BMI 28.6
[2021-03-12] VITALS (36 sets, daily range): BP systolic 129–169; BP diastolic 64–106; PULSE 60–80; RESP 12–20; TEMP 36.1–37.1; O2SAT 93–100; BMI 28.1
[2021-03-12 11:35] LABS: Alanine Aminotransferase 99 IU/L (<35); Albumin 4.3 g/dL (3.5-5.0); Albumin Globulin Ratio 1.8 (1.0-2.8); Alkaline Phosphatase 60 U/L (38-126); Aspartate Aminotransferase 196 IU/L (14-36); BUN Creatinine Ratio 27.9 (6-22); Bilirubin Total 0.4 mg/dL (0.2-1.3); Blood Urea Nitrogen 24 mg/dL (7-17); Calcium 9.7 mg/dL (8.4-10.2); Carbon Dioxide 22 mmol/L (22-32); Chloride 106 mmol/L (98-107); Creatine Kinase 290 U/L (30-135); Estimated Glomerular Filt Rate > 60.0 mL/min (>60); Globulin 2.4 g/dL (1.7-4.1); Glucose 141 mg/dL (80-110); HEMOLYSIS < 15 (0-50); Potassium 3.8 mmol/L (3.4-5.1); Sodium 138 mmol/L (137-145); Total Protein 6.7 g/dL (6.3-8.2)
[2021-03-12 11:47] LABS: Troponin I < 0.012 ng/mL (0.01-0.034)
[2021-03-12 11:51] LABS: Add Manual Diff / Slide Review NO; Basophils Absolute Auto 100 /uL (0-100); Basophils Percent Auto 1.3 % (0-2); CKMB % Relative Index 1.6 % (1.5-5.0); Creatine Kinase MB 4.53 ng/mL (<2.37); Eosinophils Absolute Auto 0 /uL (0-450); Eosinophils Percent Auto 0.2 % (2-4); Lymphocytes Absolute Auto 400 /uL (1100-4500); Lymphocytes Percent Auto 5.4 % (25-40); Mean Corpuscular HGB Conc 30.3 % (30-36); Mean Corpuscular Hemoglobin 25.7 PG (26-34); Mean Corpuscular Volume 84.8 fL (80-100); Monocytes Absolute Auto 500 /uL (0-900); Monocytes Percent Auto 7.9 % (3-14); Neutrophils Absolute Auto 5800 /uL (1500-7000); Neutrophils Percent Auto 85.2 % (50-75); Platelet Count 140 X10^3/uL (150-400); Red Blood Cell Count 2.27 X10^6/uL (4.0-5.2); Red Cell Distribution Width 28.3 % (11.6-14.8); White Blood Cell Count 6.8 X10^3/uL (4.5-11.0)
[2021-03-12 11:59] LABS: Hemoglobin 5.8 g/dL (12.0-16.0)
[2021-03-12 12:00] LABS: Hematocrit 19.3 % (36-46)
--- NOTE | 2021-03-12 12:00 | ED_ITS ---
HPI - Fall General Chief Complaint: Syncope Stated Complaint: 5 episodes of falling yesterday Time Seen by Provider: 03/12/21 11:59 Source: patient Mode of arrival: Ambulatory Limitations: no limitations History of Present Illness HPI Narrative: Patient is a 60-year-old female with history of hypertension and alcohol use presenting with increasing falls and shortness of breath. She says that when she stands up she gets dizzy and lightheaded she has fallen a number of times hitting her head with brief loss of consciousness. She has not been evaluated in till now. She has extreme fatigue and shortness of breath with exertion. She denies any chest pain nausea or vomiting. She does have a contusion over her left rib from the falls. She is on an unknown number of times over the last 2 weeks has gotten significantly worse is the last 2 days. MD complaint: fall Onset (ago): day(s) Fall from: standing Related Data Home Medications Medication Instructions Recorded Confirmed acetaminophen 1,000 mg PO BID PRN #0 03/20/10 02/17/21 losartan 100 mg tablet 100 mg PO DAILY 11/13/19 02/17/21 escitalopram oxalate 10 mg tablet 20 mg PO DAILY tab 03/19/20 02/17/21 pantoprazole 40 mg tablet,delayed 40 mg PO DAILY tab 05/19/20 02/17/21 release metoprolol succinate 100 mg 50 mg PO DAILY tab 07/23/20 02/17/21 tablet,extended release 24 hr pregabalin 75 mg capsule 75 mg PO BID 09/23/20 02/17/21 amlodipine 5 mg tablet 5 mg PO DAILY tab 02/17/21 02/17/21 cholecalciferol (vitamin D3) 10 10 mcg PO DAILY 02/17/21 02/17/21 mcg (400 unit) capsule fenofibrate 160 mg tablet 160 mg PO DAILY tab 02/17/21 02/17/21 folic acid 400 mcg tablet 0.4 mg PO DAILY 02/17/21 02/17/21 mecobalamin (vitamin B12) 1,000 1,000 mcg PO DAILY 02/17/21 02/17/21 mcg chewable tablet Previous Rx's Medication Instructions Recorded lorazepam 0.5 mg tablet 0.5 mg PO BID PRN #15 tab 02/17/21 Allergies Allergy/AdvReac Type Severity Reaction Status Date / Time No Known Drug Allergies Allergy Verified 02/17/21 13:01 Review of Systems Review of Systems ROS Unobtainable: All systems reviewed & are unremarkable except as noted in HPI and below Constitutional Constitutional: Denies chills, Reports fatigue, Denies fever(s), Reports frequent falls, Denies lethargy and Reports weakness Eyes Eyes: Denies change in vision, Denies eye discharge, Denies irritation and Denies loss of vision Cardiovascular Cardiovascular: Denies chest pain, Denies irregular heart rhythm, Denies lightheadedness, Denies palpitations, Denies dyspnea, Denies dyspnea on exertion and Denies orthopnea Respiratory Respiratory: Denies cough, Denies dyspnea, Denies dyspnea on exertion and Denies wheezing Gastrointestinal Gastrointestinal: Denies abdominal pain, Denies change in bowel habits, Denies diarrhea, Denies nausea and Denies vomiting Genitourinary Genitourinary: Denies urinary hesitancy and Denies urinary incontinence Genitourinary: Denies urinary incontinence and Denies urinary hesitancy Musculoskeletal Musculoskeletal: Reports back pain (Chronic back issues) Integumentary/Breasts Skin/Breast: Denies pruritus, Denies erythema, Denies rash and Denies wounds Neurologic Neurologic: Denies confusion, Reports frequent falls, Denies loss of vision and Reports weakness Psychiatric Psychiatric: Denies confusion Endocrine Endocrine: Reports fatigue and Denies palpitations Allergic/Immunologic Allergic/Immunologic: Denies wheezing Patient History Medical History Back pain Chronic diarrhea Depression Easy bruisability Facial lesion Failed cervical fusion (~2007) Fecal incontinence Hearing loss History of UTI HTN (hypertension) Numbness and tingling Pneumonia RLS (restless legs syndrome) Sinus infection (~2007) Stomach ulcer Strain of left groin Tinnitus of right ear Trauma in childhood Trigger thumb, left thumb Surgical History History of ankle surgery (~2003) Hx of colonoscopy Hx of laparoscopic gastric banding (~2004) Family History (Updated 03/12/21 @ 18:19 by Ag Nash DO) Mother Cancer Social History household members: significant other Smoking Status: Former smoker alcohol intake: current Smoking Status: Former smoker alcohol intake frequency: a few times a week Substance Use Type: marijuana Exam Initial Vital Signs Initial Vital Signs: Vital Signs Temperature 98.5 F 03/12/21 11:09 Pulse Rate 80 03/12/21 11:09 Respiratory Rate 16 03/12/21 11:09 Blood Pressure 138/67 03/12/21 11:09 Pulse Oximetry 98 03/12/21 11:09 GENERAL: The patient is a 60-year-old female who is alert an oriented able to follow commands and in no acute distress. HEENT: Head atraumatic,EOMI, pupils reactive, face symmetric, moist mucous membranes CARDIOVASCULAR: Regular rate and rhythm without murmurs, rubs or gallops. RESPIRATORY: Breath sounds equal bilaterally, no wheezes rales or rhonchi. ABDOMEN: Soft, nontender. Normoactive bowel sounds all 4 quadrants. No guarding or rebound. RECTAL: No gross stool, guaiac negative BACK: Contusion noted on left rhythm EXTREMITIES: Normal range of motion, no clubbing or edema. Neurovascularly intact NEUROLOGICAL: Alert and oriented x4.Normal gait and speech. Cranial nerves II through XII grossly intact. Good [id number], good [id number], strength equal bilaterally, no dysarthria or aphasia, sensation in tact to soft touch bilaterally, no visual changes, no facial droop SKIN: Warm, dry, no laceration, no petechiae, no rashes or lesions. Scores GCS Thomas coma scale eye opening: Spontaneous Thomas coma scale verbal response: Orientated [place] coma scale motor response: Obey commands [place] coma scale total score: 15 Course Orders Ordered: ED Orders 03/12/21 11:11 Complete Blood Count AUTO DIFF Stat Comprehensive Metabolic Panel Stat Troponin & CK Cardiac Panel Stat 03/12/21 11:14 EKG-12 Lead Stat 03/12/21 12:03 COVID19 - ADMIT (PHYSICS TUTOR swab/PCR) Stat Ethanol (ETOH) Stat Lipase Stat Packed Cells Stat Procalcitonin Stat Type and Screen Stat 03/12/21 12:08 CT head/brain wo con Stat US abdomen complete Stat XR ribs LT min 3V w CXR1V Stat 03/12/21 12:10 CT cervical spine wo con Stat 03/12/21 12:15 Urine Drug Screen, Rapid Stat 03/12/21 12:25 Ammonia (NH3) Stat 03/12/21 13:53 Haptoglobin Stat Iron Profile (w/ % Saturation) Stat Lactate Dehydrogenase Stat NT-proBNP (BNP-Adult 18+) Stat Reticulocyte Count, Percent Stat Hydromorphone HCl (Hydromorphone 0.5 Mg Inj) 0.5 mg IV Q6H PRN PRN Reason: Pain, Moderate (4-6) Naloxone HCl (Naloxone 0.4 Mg/Ml Vial) 0.2 mg IV Q2MIN PRN PRN Reason: Opiate Reversal Ondansetron HCl (Ondansetron 4 Mg/2 Ml Inj) 4 mg IV Q8HR PRN PRN Reason: Nausea And Vomiting Discontinued Medications Furosemide (Furosemide 20 Mg/2 Ml Vial) 20 mg IV NOW ONE Stop: 03/12/21 18:12 Sodium Chloride (Normal Saline 0.9%) 1,000 mls @ 150 mls/hr IV CONT REJI Last Infusion: 03/12/21 15:00 Dose: 0 mls/hr Documented by: Admin: 03/12/21 13:07 Dose: 150 mls/hr Documented by: RAMYA Pantoprazole Sodium (Pantoprazole 40 Mg Vial) 40 mg IV NOW ONE Stop: 03/12/21 12:10 Last Admin: 03/12/21 13:07 Dose: 40 mg Documented by: RAMYA Vital Signs Vital signs: Vital Signs - 8 hr 03/12/21 11:09 03/12/21 11:55 03/12/21 12:00 Temperature 98.5 F Pulse Rate 80 72 71 Respiratory Rate 16 Blood Pressure 138/67 Pulse Oximetry 98 98 99 03/12/21 12:08 03/12/21 12:37 03/12/21 12:39 Temperature Pulse Rate 79 69 69 Respiratory Rate 15 Blood Pressure 130/64 147/86 H Pulse Oximetry 97 99 99 03/12/21 12:45 03/12/21 13:00 03/12/21 13:15 Temperature Pulse Rate 68 66 70 Respiratory Rate 19 19 Blood Pressure 152/86 H Pulse Oximetry 99 96 03/12/21 13:30 Temperature Pulse Rate 69 Respiratory Rate Blood Pressure Pulse Oximetry 97 MDM - Fall Lab Data Attestation: I reviewed the patient's lab results. Result diagrams: 03/12/21 11:11 03/12/21 11:11 Labs: Lab Results 04/15/21 04/15/21 04/15/21 Range/Units 11:11 11:11 12:03 WBC 6.8 (4.5-11.0) X10^3/uL RBC 2.27 L (4.0-5.2) X10^6/uL Hgb 5.8 L* (12.0-16.0) g/dL Hct 19.3 L* (36-46) % MCV 84.8 (80-100) fL MCH 25.7 L (26-34) PG MCHC 30.3 (30-36) % RDW 28.3 H (11.6-14.8) % Plt Count 140 L (150-400) X10^3/uL Neut % (Auto) 85.2 H (50-75) % Lymph % (Auto) 5.4 L (25-40) % Mathews % (Auto) 7.9 (3-14) % Eos % (Auto) 0.2 L (2-4) % Baso % (Auto) 1.3 (0-2) % Neut # (Auto) 5800 (6576-4228) /uL Lymph # (Auto) 400 L (7164-3415) /uL Mathews # (Auto) 500 (0-900) /uL Eos # (Auto) 0 (0-450) /uL Baso # (Auto) 100 (0-100) /uL RBC Morphology See below Polychromasia 1+ H Hypochromasia 2+ H Anisocytosis 3+ H Sodium 138 (137-145) mmol/L Potassium 3.8 (3.4-5.1) mmol/L Chloride 106 (98-107) mmol/L Carbon Dioxide 22 (22-32) mmol/L BUN 24 H (7-17) mg/dL Creatinine 0.86 (0.52-1.04) mg/dL Estimated GFR > 60.0 (>60) mL/min BUN/Creatinine Ratio 27.9 H (6-22) Glucose 141 H (80-110) mg/dL Calcium 9.7 (8.4-10.2) mg/dL Total Bilirubin 0.4 (0.2-1.3) mg/dL AST 196 H (14-36) IU/L ALT 99 H (<35) IU/L Alkaline Phosphatase 60 (38-126) U/L Ammonia (9-30) umol/L Total Creatine Kinase 290 H (30-135) U/L CK-MB (CK-2) 4.53 H (<2.37) ng/mL CK-MB (CK-2) Rel Index 1.6 (1.5-5.0) % Troponin I < 0.012 (0.01-0.034) ng/mL Total Protein 6.7 (6.3-8.2) g/dL Albumin 4.3 (3.5-5.0) g/dL Globulin 2.4 (1.7-4.1) g/dL Albumin/Globulin Ratio 1.8 (1.0-2.8) Lipase 273 (23-300) U/L Procalcitonin (<0.5) ng/mL Ethyl Alcohol ( - 10) mg/dL SARS-CoV-2 (PCR) (Negative) Blood Type Antibody Screen Crossmatch 03/12/21 03/12/21 03/12/21 Range/Units 12:03 12:03 12:03 WBC (4.5-11.0) X10^3/uL RBC (4.0-5.2) X10^6/uL Hgb (12.0-16.0) g/dL Hct (36-46) % MCV (80-100) fL MCH (26-34) PG MCHC (30-36) % RDW (11.6-14.8) % Plt Count (150-400) X10^3/uL Neut % (Auto) (50-75) % Lymph % (Auto) (25-40) % Mathews % (Auto) (3-14) % Eos % (Auto) (2-4) % Baso % (Auto) (0-2) % Neut # (Auto) (1516-3083) /uL Lymph # (Auto) (3994-4537) /uL Mathews # (Auto) (0-900) /uL Eos # (Auto) (0-450) /uL Baso # (Auto) (0-100) /uL RBC Morphology Polychromasia Hypochromasia Anisocytosis Sodium (137-145) mmol/L Potassium (3.4-5.1) mmol/L Chloride (98-107) mmol/L Carbon Dioxide (22-32) mmol/L BUN (7-17) mg/dL Creatinine (0.52-1.04) mg/dL Estimated GFR (>60) mL/min BUN/Creatinine Ratio (6-22) Glucose (80-110) mg/dL Calcium (8.4-10.2) mg/dL Total Bilirubin (0.2-1.3) mg/dL AST (14-36) IU/L ALT (<35) IU/L Alkaline Phosphatase (38-126) U/L Ammonia (9-30) umol/L Total Creatine Kinase (30-135) U/L CK-MB (CK-2) (<2.37) ng/mL CK-MB (CK-2) Rel Index (1.5-5.0) % Troponin I (0.01-0.034) ng/mL Total Protein (6.3-8.2) g/dL Albumin (3.5-5.0) g/dL Globulin (1.7-4.1) g/dL Albumin/Globulin Ratio (1.0-2.8) Lipase (23-300) U/L Procalcitonin 0.11 (<0.5) ng/mL Ethyl Alcohol ( - 10) mg/dL SARS-CoV-2 (PCR) Negative (Negative) Blood Type O Positive Antibody Screen Negative Crossmatch See Detail 03/12/21 03/12/21 Range/Units 12:03 12:25 WBC (4.5-11.0) X10^3/uL RBC (4.0-5.2) X10^6/uL Hgb (12.0-16.0) g/dL Hct (36-46) % MCV (80-100) fL MCH (26-34) PG MCHC (30-36) % RDW (11.6-14.8) % Plt Count (150-400) X10^3/uL Neut % (Auto) (50-75) % Lymph % (Auto) (25-40) % Mathews % (Auto) (3-14) % Eos % (Auto) (2-4) % Baso % (Auto) (0-2) % Neut # (Auto) (0174-2582) /uL Lymph # (Auto) (6992-1021) /uL Mathews # (Auto) (0-900) /uL Eos # (Auto) (0-450) /uL Baso # (Auto) (0-100) /uL RBC Morphology Polychromasia Hypochromasia Anisocytosis Sodium (137-145) mmol/L Potassium (3.4-5.1) mmol/L Chloride (98-107) mmol/L Carbon Dioxide (22-32) mmol/L BUN (7-17) mg/dL Creatinine (0.52-1.04) mg/dL Estimated GFR (>60) mL/min BUN/Creatinine Ratio (6-22) Glucose (80-110) mg/dL Calcium (8.4-10.2) mg/dL Total Bilirubin (0.2-1.3) mg/dL AST (14-36) IU/L ALT (<35) IU/L Alkaline Phosphatase (38-126) U/L Ammonia < 9 L (9-30) umol/L Total Creatine Kinase (30-135) U/L CK-MB (CK-2) (<2.37) ng/mL CK-MB (CK-2) Rel Index (1.5-5.0) % Troponin I (0.01-0.034) ng/mL Total Protein (6.3-8.2) g/dL Albumin (3.5-5.0) g/dL Globulin (1.7-4.1) g/dL Albumin/Globulin Ratio (1.0-2.8) Lipase (23-300) U/L Procalcitonin (<0.5) ng/mL Ethyl Alcohol < 10 ( - 10) mg/dL SARS-CoV-2 (PCR) (Negative) Blood Type Antibody Screen Crossmatch Imaging Data CT scan - head: Radiologist's Impression: PROCEDURE: CT HEAD/BRAIN WO CON INDICATIONS: falls TECHNIQUE: Noncontrast 4.5 mm thick angled axial sections acquired from the foramen magnum to the vertex, with coronal and sagittal reformats. For radiation dose reduction, the following was used: automated exposure control, adjustment of mA and/or kV according to patient size. COMPARISON: None. FINDINGS: Image quality: Excellent. CSF spaces: Basal cisterns are patent. No extra-axial fluid collections. The ventricles are symmetric in size and shape. Brain: No intracranial bleeds or masses. There is cerebral volume loss for age, with resultant ventricular and sulcal prominence. There are periventricular and deep white matter chronic small vessel ischemic changes. There is intracranial internal carotid artery atherosclerosis. Skull and face: Calvarium and visualized facial bones appear intact, without sky spicious lesions. Sinuses: Visualized sinuses and mastoids are clear. IMPRESSION: No acute intracranial disease process. Dictated by: Thuy Lemus MD, PhD on 03/12/2021 at 12:39 CT - cervical spine: Radiologist's Impression: PROCEDURE: CT CERVICAL SPINE WO CON INDICATIONS: fall TECHNIQUE: Noncontrast 3 mm thick sections acquired from the skull base to the T4 level. Sagittal and coronal reformats were then constructed. For radiation dose reduction, the following was used: automated exposure control, adjustment of mA and/or kV according to patient size. COMPARISON: [facility] [place], CR, XR CERVICAL SPINE 2 OR 3 VIEWS, 07/27/2018, 13:52. [facility] [place], CR, SPINE CERVICAL 2 OR 3VW, 07/18/2015, 8:44. FINDINGS: Image quality: Excellent. Bones: No fractures or dislocations. Mild, approximately 3 millimeters of C7- T1 degenerative anterolisthesis. There is reversal normal cervical spine curvature. Postsurgical changes compatible C5-C7 ACDF. Orthopedic hardware is intact. Visualized superior ribs are intact. Spine degenerative disc disease and facet arthropathy. Soft tissues: Prevertebral soft tissues are normal in thickness. No paravertebral hematomas. No apical pneumothoraces. Partially visualized bilateral pleural fluid collections. IMPRESSION: 1. No fracture. No acute osseous lesion. If symptoms and/or clinical suspicion for pathology persists, evaluation with MRI should be considered for further assessment. 2. Partially visualized bilateral pleural fluid collections. Dictated by: Thuy Lemus MD, PhD on 03/12/2021 at 12:55 Chest x-ray: Radiologist's Impression: PROCEDURE: XR RIBS LT MIN 3V W CXR1V INDICATIONS: falls contusion TECHNIQUE: 3 views of the left ribs were acquired, along with a single view chest. COMPARISON: None. FINDINGS: Surgical changes and devices: Fusion hardware in cervical spine and lower thoracic and lumbar spine is seen.. Bones and chest wall: No fractures or dislocations. No suspicious bony lesions. Overlying soft tissues appear unremarkable. Lungs and pleura: No pleural effusions or pneumothorax. Lungs appear clear. Mediastinum: Mediastinal contours appear normal. Heart size is normal. IMPRESSION: No definite displaced left rib fracture is seen. No acute cardiopulmonary pathology. Dictated by: Brian Sutton M.D. on 03/12/2021 at 11:37 ECG Data Attestation: I personally reviewed and interpreted this ECG as follows: Prior ECG tracings: available for review Interpretation: Normal sinus rhythm rate 66 p.r. interval 150 QRS [address] changes or T-wave inversions actually improved from previous EKG MDM Narrative Medical decision making narrative: Patient is found to be anemic which would explain her fatigue dizziness lightheadedness and frequent falls. I spoke with Dr. Nash is a dampened his symptoms test results and agrees with admission Discharge Plan Departure Patient Disposition: Admitted as Observation Clinical Impression: Anemia Admit Date/Time: 03/12/21 13:43 Admit Provider: Ag Nash
--- NOTE | 2021-03-12 12:08 | DI.US.S_ITS ---
PROCEDURE: US ABDOMEN COMPLETE INDICATIONS: Ascites TECHNIQUE: Real-time scanning was performed of the abdominal and retroperitoneal organs, with image documentation. COMPARISON: None. FINDINGS: Liver: Liver is normal in size and homogeneous in echotexture. Gallbladder: The gallbladder wall is unusually thickened at 12.3 mm. Focal tenderness is not associated. There is a small amount of adjacent free fluid at the right upper quadrant but insufficient for safe paracentesis. IMPRESSION: There is a small amount of ascites within the right upper quadrant but insufficient for safe paracentesis. Gallbladder wall thickening as discussed above, indeterminate etiology. This could represent a manifestation of anasarca. Please correlate for evidence of infection. No focal mass lesion is seen. Dictated by: Mike Elias M.D. on 03/12/2021 at 13:02 Approved by: Mike Elias M.D. on 03/12/2021 at 13:04
--- NOTE | 2021-03-12 12:08 | DI.CT.S_ITS ---
PROCEDURE: CT HEAD/BRAIN WO CON INDICATIONS: falls TECHNIQUE: Noncontrast 4.5 mm thick angled axial sections acquired from the foramen magnum to the vertex, with coronal and sagittal reformats. For radiation dose reduction, the following was used: automated exposure control, adjustment of mA and/or kV according to patient size. COMPARISON: None. FINDINGS: Image quality: Excellent. CSF spaces: Basal cisterns are patent. No extra-axial fluid collections. The ventricles are symmetric in size and shape. Brain: No intracranial bleeds or masses. There is cerebral volume loss for age, with resultant ventricular and sulcal prominence. There are periventricular and deep white matter chronic small vessel ischemic changes. There is intracranial internal carotid artery atherosclerosis. Skull and face: Calvarium and visualized facial bones appear intact, without suspicious lesions. Sinuses: Visualized sinuses and mastoids are clear. IMPRESSION: No acute intracranial disease process. Dictated by: Thuy Lemus MD, PhD on 03/12/2021 at 12:39 Approved by: Thuy Lemus MD, PhD on 03/12/2021 at 12:41
--- NOTE | 2021-03-12 12:08 | DI.RAD.S_ITS ---
PROCEDURE: XR RIBS LT MIN 3V W CXR1V INDICATIONS: falls contusion TECHNIQUE: 3 views of the left ribs were acquired, along with a single view chest. COMPARISON: None. FINDINGS: Surgical changes and devices: Fusion hardware in cervical spine and lower thoracic and lumbar spine is seen.. Bones and chest wall: No fractures or dislocations. No suspicious bony lesions. Overlying soft tissues appear unremarkable. Lungs and pleura: No pleural effusions or pneumothorax. Lungs appear clear. Mediastinum: Mediastinal contours appear normal. Heart size is normal. IMPRESSION: No definite displaced left rib fracture is seen. No acute cardiopulmonary pathology. Dictated by: Brian Sutton M.D. on 03/12/2021 at 11:37 Approved by: Brian Sutton M.D. on 03/12/2021 at 11:41
--- NOTE | 2021-03-12 12:10 | DI.CT.S_ITS ---
PROCEDURE: CT CERVICAL SPINE WO CON INDICATIONS: fall TECHNIQUE: Noncontrast 3 mm thick sections acquired from the skull base to the T4 level. Sagittal and coronal reformats were then constructed. For radiation dose reduction, the following was used: automated exposure control, adjustment of mA and/or kV according to patient size. COMPARISON: [facility] [place], CR, XR CERVICAL SPINE 2 OR 3 VIEWS, 07/27/2018, 13:52. [facility], , SPINE CERVICAL 2 OR 3VW, 07/18/2015, 8:44. FINDINGS: Image quality: Excellent. Bones: No fractures or dislocations. Mild, approximately 3 millimeters of C7-T1 degenerative anterolisthesis. There is reversal normal cervical spine curvature. Postsurgical changes compatible C5-C7 ACDF. Orthopedic hardware is intact. Visualized superior ribs are intact. Spine degenerative disc disease and facet arthropathy. Soft tissues: Prevertebral soft tissues are normal in thickness. No paravertebral hematomas. No apical pneumothoraces. Partially visualized bilateral pleural fluid collections. IMPRESSION: 1. No fracture. No acute osseous lesion. If symptoms and/or clinical suspicion for pathology persists, evaluation with MRI should be considered for further assessment. 2. Partially visualized bilateral pleural fluid collections. Dictated by: Thuy Lemus MD, PhD on 03/12/2021 at 12:55 Approved by: Thuy Lemus MD, PhD on 03/12/2021 at 13:01
--- NOTE | 2021-03-12 12:13 | PC.NURSE ---
critical lab values resulted. pt HGB 5.8 HCT 19.3. Pt states she is dizzy upon standing and sometimes lying down. mild SOB. abd distention with known gastric ulcer, soft on palpation. states had episode of dark stool and stopped taking ibuprofen a few days ago. states she has fallen 5 or 6 times over the past few days and noted to have large bruise on L back just below L scapula. states she did hit her head and was unconscious per her for about 30 sec. EKG obtained. IV placed and labs drawn and resulted. insufficient amount of stool for guaiac testing. Resting in bed NAD
[2021-03-12 12:37] LABS: Lipase 273 U/L (23-300)
[2021-03-12 12:38] LABS: Ethanol (ETOH) < 10 mg/dL
[2021-03-12 12:46] LABS: Anisocytosis 3+
[2021-03-12 12:47] LABS: Hypochromasia 2+; Polychromasia 1+
[2021-03-12] MEDS: PANTOPRAZOLE 40 MG VIAL IV (13:07)
[2021-03-12] MEDS: SODIUM CHLORIDE 0.9% 1,000 ML 150 ML IV (13:07)
[2021-03-12 13:17] LABS: COVID19 - ADMIT (NP swab/PCR) Negative (Negative)
[2021-03-12 13:21] LABS: Ammonia (NH3) < 9 umol/L (9-30)
[2021-03-12 13:22] LABS: Procalcitonin 0.11 ng/mL (<0.5)
[2021-03-12 14:10] LABS: Lactate Dehydrogenase 1072 U/L (313-618)
[2021-03-12 14:11] LABS: Reticulocyte Count, Percent 2.4 % (1.06-2.63)
[2021-03-12 14:19] LABS: NT-proBNP (BNP-Adult 18+) 4480 pg/mL (<125)
[2021-03-12 14:23] LABS: HEMOLYSIS < 15 (0-50); Iron 12 ug/dL (37-170)
[2021-03-12 14:34] LABS: Percent Iron Saturation 2 % (15-50); Total Iron Binding Capacity 549 ug/dL (265-497); Transferrin 578 mg/dL (206-381)
--- NOTE | 2021-03-12 17:36 | DI.ECHO.S_ITS ---
[facility] +---------+ : : [address] : : : : [id number] : : : : Phone: [phone] Echocardiogram Report + + :Name: DAKOTA ALY Study Date: 03/13/2021 Height: 68 in : :[facility] ReadingLocation: Weight: 185 lb : : Gender: Female BSA: 2.0 m2 : :: 1960 Age: 60 yrs BP: 120/70 mmHg: :Reason For Study: SOB : :Ordering Physician: LEAH, : :ROCK CALLOWAY Performed By: Camron Gill : :Referring: ROCK LYNN : + + Interpretation Summary 1) Normal left ventricular thickness, size, wall motion, and systolic function (EF 60-65%). 2) Normal right ventricular size and function. 3) No significant valvular abnormalities. 4) The right ventricular systolic pressure is estimated to be at least 61 mmHg based on an estimated right atrial pressure of 15 mm Hg. 5) No prior Echo available for comparison. Procedure: A two-dimensional transthoracic echocardiogram with color flow and Doppler was performed. The study quality was technically adequate. There is no prior echocardiogram noted for this patient. The patient was in sinus rhythm with heart rates between 71-86 bpm during the exam. Left Ventricle: The left ventricle is normal in size and wall thickness. Left ventricular systolic function is normal. The ejection fraction is estimated to be 60-65%. There are no focal wall motion abnormalities. Diastolic function could not be accurately assessed due to contradictory data. Right Ventricle: The right ventricle is normal in size and function. Atria: The left atrium is moderately dilated. The right atrium is normal in size. There is no Doppler evidence for an interatrial shunt. Mitral Valve: The mitral valve is grossly normal. There is mild mitral regurgitation. Aortic Valve: The aortic valve is normal in structure and function. There is no aortic valve stenosis. No aortic regurgitation is present. Tricuspid Valve: The tricuspid valve is normal in structure and function. There is mild tricuspid regurgitation. The right ventricular systolic pressure is estimated to be at least 61 mmHg based on an estimated right atrial pressure of 15 mm Hg. Pulmonic Valve: The pulmonic valve is not well seen, but is grossly normal. There is no pulmonic valvular regurgitation. Great Vessels: The aortic root is normal size. The aortic arch could not be visualized. The IVC is dilated (diameter is greater than 2.1 cm) and it collapses less than 50% with a sniff. This suggests a high right atrial pressure of 15 mm Hg. Pericardium/ Pleura There is no pericardial effusion. There is no pleural effusion. MMode/2D Measurements & Calculations LVIDd: 5.0 cm LVOT diam: 2.0 cm LVIDs: 3.2 cm Ao root diam: 3.2 cm FS: 37.0 % IVSd: 0.84 cm LVPWd: 0.84 cm LV friedman. diameter/BSA (cm/m^2): 2.5 LV sys. diameter/BSA (cm/m^2): 1.6 LA A2 area: 22.8 cm2 RA long axis: 5.9 cm LA A4 area: 26.7 cm2 RA area: 15.6 cm2 LA length (vol): 6.5 cm RA vol: 35.0 ml LA vol: 78.9 ml RA : 17.7 ml/m2 LA vol index: 39.9 ml/m2 IVC diam: 2.4 cm TAPSE: 1.9 cm Doppler Measurements & Calculations Ao V2 max: 163.8 cm/sec LVOT Max Cristiano: 140.4 cm/sec Ao V2 mean: 106.4 cm/sec LV V1 max P.9 mmHg Ao max P.7 mmHg LV V1 VTI: 29.3 cm Ao mean P.1 mmHg LAMINE(I,D): 2.9 cm2 Ao V2 VTI: 30.8 cm LAMINE(V,D): 2.6 cm2 sev ratio: 0.95 LAMINE indexed to BSA (cm^2/m^2): 1.4 MV E max cristiano: 92.7 cm/sec TR max cristiano: 339.4 cm/sec MV A max cristiano: 71.5 cm/sec TR max P.1 mmHg MV E/A: 1.3 PA pr(Accel): 7.1 mmHg Med Peak E' Cristiano: 8.9 cm/sec E/E' med: 10.5 Lat Peak E' Cristiano: 13.4 cm/sec E/E' lat: 6.9 E/e' average: 8.7 MV dec time: 0.22 sec SV(LVOT): 88.2 ml Reading Physician:01:51 PM
--- NOTE | 2021-03-12 17:47 | PC.NURSE ---
Addendum entered by Loren Jacinto R.N. 03/12/21 22:23: Wakens easily to voice. Calm. Uses bedpan without event. [address] and continuous pulse oximetry replaced to pt's finger. 97%. Turns self independently in bed. BL calf scd's replaced. Addendum entered by Loren Jacinto R.N. 03/12/21 20:42: Dr. Nash was made aware of pt's brief episode wherein HR was 38 by LOGGING EQUIPMENT MECHANIC's as it occurred. Pt now resting quietly in bed with eyes closed without signs of distress or discomfort. Bed alarm in place. Labs have been drawn and are pending. Addendum entered by Loren Jacinto R.N. 03/12/21 19:59: Pt's home meds brought to hospital secured with supervisor pile driving, Vanita. Addendum entered by Loren Jacinto R.N. 03/12/21 19:41: Reviewed telemetry with ICU nurses as previous reading showed pt SB @ rate of 38. Pt currently normal sinus rhythm with rate in the 70's per LOGGING EQUIPMENT MECHANICVanessa. Addendum entered by Loren Jacinto R.N. 03/12/21 19:14: Pt calls staff with call light and DAMAGE APPRAISER summons this service writer advisor soon after entering pt's room. Pt is lying in bed awake and dyspneic, diaphoretic, anxious. DAMAGE APPRAISER reports pt was using bedpan at the time this episode began. Attempts by staff to calm patient by modeling slow breathing and reassurance. Dr. Nash was summoned to observe pt's current activity. Pt restless in bed, panicked, but remains conscious and awake. Vital signs taken. BP 160/106 Pt given 1 mg iv ativan as per Dr. Nash's order with immediate result of calming pt. Pt finishes using bedpan, dyspnea and diaphoresis cease and pt is able to resume calm and restful state. Pt was reassured staff will monitor pt closely. Encouraged to call for needs. 02 2L nc with continuous monitor in place 94% with HR 71. Original Note: Pt to room 223 from E.R. via stretcher awake, alert, conversant. Pt states able to walk from stretcher to bed. Pt has a struggle to sit up independently and when finally successful, c/o feeling dizzy really dizzy. Pt was immediately layed back down on stretcher when became unresponsive. Nonbreather placed on pt with oxygen and while preparing to take BP, pt spontaneously awoke and was appropriately conversant and responsive. Slider board to transfer pt to bed. Pt was incontinent of urine. Pt states prefers to keep oxygen in place. Changed to nasal cannula @ 2L and continuous monitor reveals oxygen level 94%. Dr. Nash in to see patient and was informed of these events. Pt denies chest pain or SOB.
--- NOTE | 2021-03-12 18:07 | P.HP_ITS ---
History of Present Illness History of Present Illness Date Patient Seen: 03/12/21 Time Patient Seen: 18:08 Chief complaint: 5 episodes of falling yesterday Narrative: Yamilet Finch is a 60-year-old female with a past medical history of hypertension, hyperlipidemia, chronic back pain, anxiety, and depression who presented to the emergency room after multiple syncopal episodes at home. She states that when she stands up she gets quite dizzy and lightheaded and has fallen a number of times hitting her head with brief losses of consciousness. She states her 1st episode was about a week ago, and this has gotten significantly worse over the last couple of days. She also has extreme fatigue, early satiety, and occasional lower extremity edema over the past couple of months. She was previously taking NSAIDs for her back pain, then had a couple of dark stools, so she stopped her NSAID therapy but did not seek medical care at that time. She endorses a couple of alcoholic drinks a week currently. Denies any hematochezia, or hematemesis. She denies any nausea, or vomiting. She does have some mild epigastric pain. She does get dyspneic lying flat, but relates this to her chronic back pain and a slipped disc in her cervical spine. She reports prior colonoscopy a couple of years ago at [facility]. She denies any upper endoscopies previously although her PMH notes a stomach ulcer. She had a stress test within the past year for severe hypertension to her primary care provider, which was deemed low risk for any cardiac ischemia. In the emergency room, the patient was mildly hypertensive, but the remainder of her vital signs were unremarkable. Initial laboratory evaluation reveals a hemoglobin of 5.8, hematocrit 19.3, platelet count of 140. Reticulocyte count was 2.4%, hypochromasia and anisocytosis is noted. Chemistry panel was notable for an AST 196, up from normal over a year ago, ALT of 99 with a normal T bili. LDH was elevated at 1072. Ammonia was less than 9. Troponin was negative. ProBNP was elevated at 4180. Procalcitonin is negative. Alcohol level was negative. COVID-19 testing was negative. Iron panel done before transfusion shows an iron level of 12, TIBC of 549, % saturation of 2%, but a transferrin of 578. She had multiple imaging studies performed in the emergency room, including head CT which was unremarkable. Chest x-ray which showed no acute pathologies, but may show some vascular congestion based on my interpretation, this is somewhat limited due to her body habitus. CT of her cervical spine did not show any acute fractures, but does note trace bilateral pleural fluid. Abdominal ultrasound was performed as well which showed gallbladder wall thickening and a small amount of ascites. Patient was admitted to Medicine for further evaluation of severe symptomatic anemia with syncope. Upon arrival to the floor, she was attempting to move from the wheelchair to her bed, but when sta nding had another syncopal episode and was unresponsive for a couple of minutes before returning to baseline. She was incontinent of urine. At the time of my evaluation she had returned to her baseline, was finishing her 2nd unit of blood, and was starting to feel a bit better. Patient History Medical History Back pain Chronic diarrhea Depression Easy bruisability Facial lesion Failed cervical fusion (~2007) Fecal incontinence Hearing loss History of UTI HTN (hypertension) Numbness and tingling Pneumonia RLS (restless legs syndrome) Sinus infection (~2007) Stomach ulcer Strain of left groin Tinnitus of right ear Trauma in childhood Trigger thumb, left thumb Surgical History History of ankle surgery (~2003) Hx of colonoscopy Hx of laparoscopic gastric banding (~2004) Family & Social History Family History (Updated 03/12/21 @ 18:19 by Ag Nash DO) Mother Cancer Social History: household members significant other Prior Living Arrangements House Safety & Behavioral: Feels Safe in Current Yes Environment Been Physically Hurt or No Threatened By a Person Suicidal Ideation Description None Suicide Plan Description No Plan Tobacco & Substance use: Smoking Status Former smoker alcohol intake current alcohol intake frequency a few times a week Substance Use Type marijuana Meds Home Medications and Allergies Home Medications Medication Instructions Recorded Confirmed Type acetaminophen 1,000 mg PO BID PRN #0 03/20/10 02/17/21 History losartan 100 mg tablet 100 mg PO DAILY 11/13/19 02/17/21 History escitalopram oxalate 10 mg tablet 20 mg PO DAILY tab 03/19/20 02/17/21 History pantoprazole 40 mg tablet,delayed 40 mg PO DAILY tab 05/19/20 03/12/21 History release metoprolol succinate 100 mg 50 mg PO DAILY tab 07/23/20 02/17/21 History tablet,extended release 24 hr pregabalin 75 mg capsule 75 mg PO BID 09/23/20 02/17/21 History amlodipine 5 mg tablet 5 mg PO DAILY tab 02/17/21 02/17/21 History cholecalciferol (vitamin D3) 10 10 mcg PO DAILY 02/17/21 02/17/21 History mcg (400 unit) capsule fenofibrate 160 mg tablet 160 mg PO DAILY tab 02/17/21 02/17/21 History folic acid 400 mcg tablet 0.4 mg PO DAILY 02/17/21 02/17/21 History lorazepam 0.5 mg tablet 0.5 mg PO BID PRN #15 tab 02/17/21 02/17/21 Rx mecobalamin (vitamin B12) 1,000 1,000 mcg PO DAILY 02/17/21 02/17/21 History mcg chewable tablet Allergies Allergy/AdvReac Type Severity Reaction Status Date / Time No Known Drug Allergies Allergy Verified 02/17/21 13:01 Review of Systems Review of Systems Narrative: All other systems reviewed with the patient and are negative unless otherwise stated. Exam Vital Signs (past 8 hours): - 03/12/21 11:09 03/12/21 11:55 03/12/21 12:00 Temperature 98.5 F Pulse Rate 80 72 71 Respiratory Rate 16 Blood Pressure 138/67 Pulse Oximetry 98 98 99 03/12/21 12:08 03/12/21 12:37 03/12/21 12:39 Temperature Pulse Rate 79 69 69 Respiratory Rate 15 Blood Pressure 130/64 147/86 H Pulse Oximetry 97 99 99 03/12/21 12:45 03/12/21 13:00 03/12/21 13:15 Temperature Pulse Rate 68 66 70 Respiratory Rate 19 19 Blood Pressure 152/86 H Pulse Oximetry 99 96 03/12/21 13:30 03/12/21 13:45 03/12/21 13:51 Temperature 98.8 F Pulse Rate 69 69 72 Respiratory Rate 16 Blood Pressure 152/86 H Pulse Oximetry 97 96 03/12/21 14:00 03/12/21 14:09 03/12/21 14:12 Temperature 98.6 F Pulse Rate 70 68 69 Respiratory Rate 16 Blood Pressure 146/68 H 148/78 H 148/78 H Pulse Oximetry 95 95 04/15/21 14:15 03/12/21 14:30 03/12/21 14:45 Temperature Pulse Rate 71 68 70 Respiratory Rate Blood Pressure 145/86 H 150/90 H 142/93 H Pulse Oximetry 95 93 93 03/12/21 15:00 03/12/21 15:01 03/12/21 15:15 Temperature Pulse Rate 72 74 72 Respiratory Rate Blood Pressure 151/75 H 151/81 H Pulse Oximetry 94 94 94 03/12/21 15:28 03/12/21 15:29 03/12/21 15:30 Temperature 98.6 F 98.6 F Pulse Rate 70 60 66 Respiratory Rate 16 16 Blood Pressure 151/81 H 151/80 H 159/106 H Pulse Oximetry 93 03/12/21 15:44 03/12/21 15:45 03/12/21 16:00 Temperature 97.8 F Pulse Rate 66 71 68 Respiratory Rate 16 Blood Pressure 169/85 H 169/85 H Pulse Oximetry 95 94 03/12/21 16:01 03/12/21 16:15 03/12/21 16:30 Temperature Pulse Rate 71 69 70 Respiratory Rate Blood Pressure 165/92 H 169/95 H 156/91 H Pulse Oximetry 93 94 94 03/12/21 16:45 03/12/21 17:05 Temperature 96.9 F L Pulse Rate 70 80 Respiratory Rate 20 Blood Pressure 164/90 H 148/97 H Pulse Oximetry 95 100 Oxygen Delivery Method Room Air Oxygen Flow Rate 15 Narrative Exam Narrative: GENERAL APPEARANCE: Well developed, well nourished, female, appears stated age, slight pallor SKIN: Inspection of the skin reveals no rashes, ulcerations or petechiae. c ontusion over her L chest posteriorly, anterior R upper chest wall and shoulder HEENT: Normocephalic atraumatic, extraocular muscles are intact, oropharynx is clear and mucous membranes are moist, neck is supple without adenopathy NECK: Supple and symmetric. There was no thyroid enlargement, and no tenderness, or masses were felt. CHEST: Normal AP diameter and normal contour without any kyphoscoliosis. LUNGS: Auscultation of the lungs revealed diminished breath sounds at the bilateral lung bases, no obvious wheezing, rhonchi, rales CARDIOVASCULAR: There was a regular rate and rhythm without any murmurs, gallops, rubs. Peripheral pulses were 2+ and symmetric. ABDOMEN: Soft, mildly distended, mild epigastric tenderness. MUSCULOSKELETAL: There was no tenderness or effusions noted. Muscle strength and tone were normal. EXTREMITIES: No cyanosis, clubbing. trace non-pitting edema bilateral lower extremities. NEUROLOGIC: Alert and oriented x 3. slightly slowed responses. Strength is +5/5 in the Upper Extremities and Lower Extremities Bilaterally. Objective Labs Result Diagrams: 03/12/21 11:11 03/12/21 11:11 Labs: Laboratory Results - last 24 hr 03/12/21 03/12/21 03/12/21 11:11 11:11 12:03 WBC 6.8 RBC 2.27 L Hgb 5.8 L* Hct 19.3 L* MCV 84.8 MCH 25.7 L MCHC 30.3 RDW 28.3 H Plt Count 140 L Neut % (Auto) 85.2 H Lymph % (Auto) 5.4 L [place] % (Auto) 7.9 Eos % (Auto) 0.2 L Baso % (Auto) 1.3 Neut # (Auto) 5800 Lymph # (Auto) 400 L [place] # (Auto) 500 Eos # (Auto) 0 Baso # (Auto) 100 RBC Morphology See below Polychromasia 1+ H Hypochromasia 2+ H Anisocytosis 3+ H Percent Retic Sodium 138 Potassium 3.8 Chloride 106 Carbon Dioxide 22 BUN 24 H Creatinine 0.86 Estimated GFR > 60.0 BUN/Creatinine Ratio 27.9 H Glucose 141 H Calcium 9.7 Iron TIBC % Saturation Transferrin Total Bilirubin 0.4 AST 196 H ALT 99 H Alkaline Phosphatase 60 Ammonia Lactate Dehydrogenase Total Creatine Kinase 290 H CK-MB (CK-2) 4.53 H CK-MB (CK-2) Rel Index 1.6 Troponin I < 0.012 NT-Pro-B Natriuret Pep Total Protein 6.7 Albumin 4.3 Globulin 2.4 Albumin/Globulin Ratio 1.8 Lipase 273 Procalcitonin Ethyl Alcohol SARS-CoV-2 (PCR) Blood Type Antibody Screen Crossmatch 03/12/21 03/12/21 03/12/21 12:03 12:03 12:03 WBC RBC Hgb Hct MCV MCH MCHC RDW Plt Count Neut % (Auto) Lymph % (Auto) [place] % (Auto) Eos % (Auto) Baso % (Auto) Neut # (Auto) Lymph # (Auto) [place] # (Auto) Eos # (Auto) Baso # (Auto) RBC Morphology Polychromasia Hypochromasia Anisocytosis Percent Retic Sodium Potassium Chloride Carbon Dioxide BUN Creatinine Estimated GFR BUN/Creatinine Ratio Glucose Calcium Iron TIBC % Saturation Transferrin Total Bilirubin AST ALT Alkaline Phosphatase Ammonia Lactate Dehydrogenase Total Creatine Kinase CK-MB (CK-2) CK-MB (CK-2) Rel Index Troponin I NT-Pro-B Natriuret Pep Total Protein Albumin Globulin Albumin/Globulin Ratio Lipase Procalcitonin 0.11 Ethyl Alcohol SARS-CoV-2 (PCR) Negative Blood Type O Positive Antibody Screen Negative Crossmatch See Detail 03/12/21 03/12/21 03/12/21 12:03 12:25 13:53 WBC RBC Hgb Hct MCV MCH MCHC RDW Plt Count Neut % (Auto) Lymph % (Auto) [place] % (Auto) Eos % (Auto) Baso % (Auto) Neut # (Auto) Lymph # (Auto) [place] # (Auto) Eos # (Auto) Baso # (Auto) RBC Morphology Polychromasia Hypochromasia Anisocytosis Percent Retic 2.4 Sodium Potassium Chloride Carbon Dioxide BUN Creatinine Estimated GFR BUN/Creatinine Ratio Glucose Calcium Iron TIBC % Saturation Transferrin Total Bilirubin AST ALT Alkaline Phosphatase Ammonia < 9 L Lactate Dehydrogenase Total Creatine Kinase CK-MB (CK-2) CK-MB (CK-2) Rel Index Troponin I NT-Pro-B Natriuret Pep Total Protein Albumin Globulin Albumin/Globulin Ratio Lipase Procalcitonin Ethyl Alcohol < 10 SARS-CoV-2 (PCR) Blood Type Antibody Screen Crossmatch 03/12/21 03/12/21 03/12/21 13:53 13:53 13:53 WBC RBC Hgb Hct MCV MCH MCHC RDW Plt Count Neut % (Auto) Lymph % (Auto) [place] % (Auto) Eos % (Auto) Baso % (Auto) Neut # (Auto) Lymph # (Auto) [place] # (Auto) Eos # (Auto) Baso # (Auto) RBC Morphology Polychromasia Hypochromasia Anisocytosis Percent Retic Sodium Potassium Chloride Carbon Dioxide BUN Creatinine Estimated GFR BUN/Creatinine Ratio Glucose Calcium Iron 12 L TIBC 549 H % Saturation 2 L Transferrin 578 H Total Bilirubin AST ALT Alkaline Phosphatase Ammonia Lactate Dehydrogenase 1072 H Total Creatine Kinase CK-MB (CK-2) CK-MB (CK-2) Rel Index Troponin I NT-Pro-B Natriuret Pep 4480 H Total Protein Albumin Globulin Albumin/Globulin Ratio Lipase Procalcitonin Ethyl Alcohol SARS-CoV-2 (PCR) Blood Type Antibody Screen Crossmatch Assessment & Plan Assessment & Plan narrative: Yamilet Finch is a 60-year-old female with a past medical history of hypertension, hyperlipidemia, chronic back pain, anxiety, and depression who presented to the emergency room after multiple syncopal episodes at home. She is admitted with symptomatic anemia and resulting syncope, with possible acute heart failure based on admission laboratory findings and clinical history. 1. Acute blood loss anemia, presumed secondary to upper GI bleeding, present on admission -suspect upper GI bleeding given reported melanotic appearing stools a few weeks ago and history of NSAID use. Will continue IV Protonix, 40 mg, twice daily. -will keep NPO for now, pending stability of her H&H. -last known hemoglobin was over a year ago and was 11.4. -last colonoscopy 2018 was reported as normal. -contacted Dr. Beckett of general surgery, happy to consult in the AM for possible EGD. -Reticulocyte count is inappropriately normal, may be suppressed in setting of inflammation in setting of possible acute heart failure. Consider hematology evaluation depending on further evaluation. -LDH elevated but non-specific. No schistocytes are noted on CBC. Haptoglobin pending. Hemolysis seems less likely, no elevation of bilirubin. 2. Syncope, acute, present on admission - highly suspect orthostatic syncope secondary to anemia. - will monitor with telemetry, TTE as below though cardiac etiology is less likely. 3. Possible acute heart failure -patient reports fatigue, orthopnea, lower extremity edema over the past few months. She did have a recent stress test which showed a normal ejection fraction, but this was prior to when her symptoms seemingly started. These may be related to her anemia, however her proBNP is quite elevated and some of her elevated transaminase levels may be indicative of a congestive hepatopathy. This would further explain the imaging findings of gallbladder wall thickening, mild ascites, and small bilateral pleural effusions that were noted on CT of her cervical spine. -will give a dose of lasix 40 mg to assess response. - TTE ordered. 4. Hypertension, chronic - will hold other than lasix in setting of likely orthostatic hypotension given blood loss anemia 5. Hyperlipidemia, chronic - will hold home meds temporarily. 6. Chronic back pain - continue pain control with IV dilaudid for now. 7. Depression, and anxiety, chronic - continue home medications. 8. New abdominal ascites, pleural effusion, and gallbladder wall thickening. - as above suspect possible acute heart failure which could help to explain these imaging findings. 9. transaminitis, acute, present on admission - suspect heart failure as noted above. Hepatitis panel ordered as well. Code: Full, surrogate decision maker is the patient's spouse. Dispo: Admitted under inpatient status as her stay is expected to exceed 2 midnights DVT: SCDs given likely acute blood loss anemia COVID-19 COVID-19 status: Negative Quality VTE Deep Vein Thrombosis/Pulmonary Embolism Present on Admission: No
[2021-03-12] MEDS: FUROSEMIDE 20 MG/2 ML VIAL IV (18:29)
[2021-03-12] MEDS: SODIUM CHLORIDE 0.9% FLUSH 10 ML IV ×2 (18:29)
[2021-03-12] MEDS: LORazepam 2 MG/ML INJ 1 MG IV (19:18)
[2021-03-12 19:45] LABS: UR Morphine/Opiate cutoff 300 Negative (Negative); Ur Creatinine Normal (Normal); Ur Specific Gravity Normal (Normal); Urine Amphetamines Negative (Negative); Urine Barbiturates Negative (Negative); Urine Benzodiazepines Negative (Negative); Urine Cocaine Negative (Negative); Urine MDMA Negative (Negative); Urine Methadone Negative (Negative); Urine Methamphetamines Negative (Negative); Urine Oxycodone Negative (Negative); Urine Phencyclidine Negative (Negative); Urine Tetrahydrocannabinol Positive (Negative); Urine Tricyclic Antidepressant Negative (Negative); Urine pH Normal (Normal)
[2021-03-12 20:33] LABS: Hematocrit 24.9 % (36-46); Hemoglobin 7.9 g/dL (12.0-16.0)
[2021-03-12 20:43] LABS: C-Reactive Protein Quant 0.7 mg/dL (<1.0)
[2021-03-12 20:58] LABS: Erythrocyte Sedimentation Rate 14 MM/HR (0-20)
[2021-03-13] VITALS (12 sets, daily range): BP systolic 111–151; BP diastolic 62–81; PULSE 69–77; RESP 16–20; TEMP 36.4–37.2; O2SAT 92–98
[2021-03-13 05:14] LABS: Add Manual Diff / Slide Review NO; Basophils Absolute Auto 100 /uL (0-100); Basophils Percent Auto 0.8 % (0-2); Eosinophils Absolute Auto 0 /uL (0-450); Eosinophils Percent Auto 0.3 % (2-4); Hemoglobin 7.6 g/dL (12.0-16.0); Lymphocytes Absolute Auto 900 /uL (1100-4500); Lymphocytes Percent Auto 13.1 % (25-40); Mean Corpuscular HGB Conc 31.6 % (30-36); Mean Corpuscular Hemoglobin 26.9 PG (26-34); Monocytes Absolute Auto 800 /uL (0-900); Monocytes Percent Auto 11.4 % (3-14); Neutrophils Absolute Auto 5000 /uL (1500-7000); Neutrophils Percent Auto 74.4 % (50-75); Platelet Count 137 X10^3/uL (150-400); Red Blood Cell Count 2.85 X10^6/uL (4.0-5.2); Red Cell Distribution Width 24.9 % (11.6-14.8); White Blood Cell Count 6.7 X10^3/uL (4.5-11.0)
[2021-03-13 05:18] LABS: Hematocrit 24.2 % (36-46)
[2021-03-13 05:21] LABS: Alanine Aminotransferase 117 IU/L (<35); Albumin Globulin Ratio 1.7 (1.0-2.8); Alkaline Phosphatase 56 U/L (38-126); Aspartate Aminotransferase 179 IU/L (14-36); Bilirubin Total 0.4 mg/dL (0.2-1.3); Bilirubin Unconjugated 0.4 mg/dL (0.0-1.1); Blood Urea Nitrogen 17 mg/dL (7-17); Calcium 9.5 mg/dL (8.4-10.2); Carbon Dioxide 26 mmol/L (22-32); Chloride 107 mmol/L (98-107); Cholesterol 107 mg/dL (140-199); Estimated Glomerular Filt Rate > 60.0 mL/min (>60); Globulin 2.4 g/dL (1.7-4.1); Glucose 95 mg/dL (80-110); HDL Cholesterol 56 mg/dL (40-60); HEMOLYSIS < 15 (0-50); LDL Cholesterol Calculated 34 mg/dL (<100); Magnesium 2.2 mg/dL (1.6-2.3); Potassium 3.6 mmol/L (3.4-5.1); Sodium 141 mmol/L (137-145); Total Protein 6.4 g/dL (6.3-8.2); Triglycerides 85 mg/dL (35-150)
[2021-03-13 05:25] LABS: Hemoglobin A1C% w Est Avg Glu 5.4 % (4.0-6.0)
[2021-03-13 05:32] LABS: Anisocytosis 3+; Hypochromasia 2+; Polychromasia 1+
[2021-03-13 05:51] LABS: TSH w/ Reflex to FT4 1.01 uIU/mL (0.47-4.68)
[2021-03-13] MEDS: LORazepam 2 MG/ML INJ 1 MG IV ×3 (06:04→21:29)
[2021-03-13 07:41] LABS: Haptoglobin 110 mg/dL (37-355)
[2021-03-13] MEDS: SODIUM CHLORIDE 0.9% FLUSH 10 ML IV ×2 (08:55→20:39)
--- NOTE | 2021-03-13 09:06 | PC.NURSE ---
Patient resting in bed with eyes closed, awakened easy. A/Ox4, breathing unlabored, lungs CTA, 94% on room air, denies SOB or increased WOB with activity. Denies lightheadedness, dizziness. HR WNL, pulses equal, no edema noted in bilateral LE. Tele on. SCD's on. Patient remains NPO. Patient has not had BM this AM, BT active x 4, voiding in restroom. Saline locked, R wrist IV patent, flushed with NS. Bed alarm on, patient reminded to call before getting OOB, patient verbalized understanding. Call light in reach.
--- NOTE | 2021-03-13 10:16 | CM.IDA ---
Addendum entered by ENEIDA Garcia 03/14/21 13:07: PT ordered today to assess. Patient up in the room, ambulating, RN Isabela states she is quite unsteady and PT eval would be helpful. Patient still expected to DC home w/ no needs from [employer] team Original Note: Initial DCP Assessment Note: Patient is a 60 yo female, resident of [place]. Patient presents after multiple syncopal episodes, found to have acute blood loss anemia, suspected to be sec to upper GI bleed, currently NPO, echo and surgery consult pending this morning. PMH includes HTN, hyperlipidemia, chronic back pain, depression and anxiety PCP: Johanne Conte Payer: [employer] Met w/patient, introduced role. Patient eager to learn more about medical POC and understands surgery consult pending today, possible need for EGD. Patient indp. at baseline, struggles w/symptoms of severe anxiety and is established w/ psychiatrist Dr Fitzgerald. Patient has an appt schedule end of March. Overall, patient confident about returning home w/S.O. to assist as needed, likely no needs from DCP team. Plan: DC likely home w/ S.O. and family when medically cleared. Will remain available in case any DC needs or concerns arise as medical POC unfolds. ENEIDA Garcia Discharge Planning/Care Management CM Discharge Assessment Start: 03/13/21 10:13 Freq: Status: Active Protocol: Document 03/13/21 10:13 WILY (Rec: 03/13/21 10:16 WILY [id number]) Discharge Planning Assessment Assigned Elevator Builder ENEIDA Davey DPOA/Assigned Designee Name Tikijame Lillyews, friend/S.O. Angle Finch, sister Contact Information Sam: [phone] Angle: [phone], Advance Directives? Yes History Provided By Patient,Medical Record Prior Living Arrangements House Household Members significant other Type of transportation used prior to Drives own vehicle admit Willing to Return to Facility? No Independent with ADL's Yes Is patient alert and oriented? Yes Barriers to Discharge No Comment Not at this time Discharge Plan Home Transportation Arrangement Family Referrals Initiated None needed Additional Comment At this time Review Status In Process
--- NOTE | 2021-03-13 11:10 | P.CONS_ITS ---
History of Present Illness Consult details Date Patient Seen: 03/13/21 Time Patient Seen: 11:11 Chief complaint: 5 episodes of falling yesterday Reason for consult: iron deficiency anemia Requesting provider: Mia Campos Narrative: Progressive fatique and dizziness. Had several falls from weakness and noted to be hypotensive (still taking HTN meds). She has noted dark stools but not loose. There is sensation of bloating in the epigastric area. No unexpected weight loss. She is under increased stress in her personal life. Reports she take antiulcer medication (PPI once daily). Had recent (about a year ago) EGD and colonoscopy at [facility] and was told she had ulcers. Meds Home Medications and Allergies Home Medications Medication Instructions Recorded Confirmed Type acetaminophen 1,000 mg PO BID PRN #0 03/20/10 02/17/21 History losartan 100 mg tablet 100 mg PO DAILY 11/13/19 03/12/21 History escitalopram oxalate 10 mg tablet 20 mg PO DAILY tab 03/19/20 03/12/21 History pantoprazole 40 mg tablet,delayed 40 mg PO DAILY tab 05/19/20 03/12/21 History release metoprolol succinate 100 mg 50 mg PO DAILY tab 07/23/20 03/12/21 History tablet,extended release 24 hr pregabalin 75 mg capsule 75 mg PO BID 09/23/20 03/12/21 History amlodipine 5 mg tablet 5 mg PO DAILY tab 02/17/21 03/12/21 History cholecalciferol (vitamin D3) 10 10 mcg PO DAILY 02/17/21 02/17/21 History mcg (400 unit) capsule fenofibrate 160 mg tablet 160 mg PO DAILY tab 02/17/21 03/12/21 History folic acid 400 mcg tablet 0.4 mg PO DAILY 02/17/21 02/17/21 History mecobalamin (vitamin B12) 1,000 1,000 mcg PO DAILY 02/17/21 02/17/21 History mcg chewable tablet lorazepam 0.25 mg PO BID PRN 03/12/21 03/12/21 History Allergies Allergy/AdvReac Type Severity Reaction Status Date / Time No Known Drug Allergies Allergy Verified 02/17/21 13:01 Review of Systems Review of Systems Narrative: dark stool, fatigue, weakness, stress. no cough ROS: Yes All systems reviewed with the patient and are negative except as otherwise documented Exam Vital Signs (past 8 hours): - 03/13/21 05:00 03/13/21 05:53 03/13/21 08:00 Temperature 97.5 F L 98.5 F Pulse Rate 73 73 Respiratory Rate 20 18 Blood Pressure 120/70 145/80 H Pulse Oximetry 96 96 94 03/13/21 09:00 Temperature Pulse Rate Respiratory Rate Blood Pressure Pulse Oximetry 94 Oxygen Delivery Method Room Air Oxygen Flow Rate 0 Const General: cooperative and comfortable HENIN Head: normocephalic and atraumatic Nose: external nose normal and nares normal Face and sinus: normal facial exam Eyes Conjunctivae: conjunctivae normal Sclera: sclerae normal Neck Neck: trachea midline Chest Chest: normal inspection of the chest Resp Effort & Inspection: normal respiratory effort and able to speak in complete sentences Cardio Rate: tachycardic Rhythm: regular rhythm GI Inspection: normal to inspection Palpation: soft Skin General: dry skin Hair: general thinning Neuro General: patient alert, patient awake and patient oriented x3 Cognition: normal cognition Speech: speech normal Psych Appearance: grossly normal and disheveled Thought Content: normal Judgment: judgment good Objective Labs Result Diagrams: 03/13/21 04:50 03/13/21 04:50 Labs: Laboratory Results - last 24 hr 03/12/21 03/12/21 03/12/21 11:11 11:11 12:03 WBC 6.8 RBC 2.27 L Hgb 5.8 L* Hct 19.3 L* MCV 84.8 MCH 25.7 L MCHC 30.3 RDW 28.3 H Plt Count 140 L Neut % (Auto) 85.2 H Lymph % (Auto) 5.4 L [place] % (Auto) 7.9 Eos % (Auto) 0.2 L Baso % (Auto) 1.3 Neut # (Auto) 5800 Lymph # (Auto) 400 L [place] # (Auto) 500 Eos # (Auto) 0 Baso # (Auto) 100 RBC Morphology See below Polychromasia 1+ H Hypochromasia 2+ H Anisocytosis 3+ H ESR Percent Retic Haptoglobin Sodium 138 Potassium 3.8 Chloride 106 Carbon Dioxide 22 BUN 24 H Creatinine 0.86 Estimated GFR > 60.0 BUN/Creatinine Ratio 27.9 H Glucose 141 H Hemoglobin A1c Calcium 9.7 Magnesium Iron TIBC % Saturation Transferrin Total Bilirubin 0.4 Conjugated Bilirubin Unconjugated Bilirubin AST 196 H ALT 99 H Alkaline Phosphatase 60 Ammonia Lactate Dehydrogenase Total Creatine Kinase 290 H CK-MB (CK-2) 4.53 H CK-MB (CK-2) Rel Index 1.6 Troponin I < 0.012 C-Reactive Protein NT-Pro-B Natriuret Pep Total Protein 6.7 Albumin 4.3 Globulin 2.4 Albumin/Globulin Ratio 1.8 Triglycerides Cholesterol LDL Cholesterol, Calc HDL Cholesterol Lipase 273 Procalcitonin TSH U Opiates 300ng/mL cut Ur Oxycodone Screen Urine Methadone Screen Ur Barbiturates Screen U Tricyclic Antidepress Ur Phencyclidine Scrn Ur Amphetamines Screen U Methamphetamines Scrn Ur MDMA Scrn (Ecstasy) U Benzodiazepines Scrn Urine Cocaine Screen U Marijuana (THC) Screen Ethyl Alcohol SARS-CoV-2 (PCR) Blood Type Antibody Screen Crossmatch 03/12/21 03/12/21 03/12/21 12:03 12:03 12:03 WBC RBC Hgb Hct MCV MCH MCHC RDW Plt Count Neut % (Auto) Lymph % (Auto) [place] % (Auto) Eos % (Auto) Baso % (Auto) Neut # (Auto) Lymph # (Auto) [place] # (Auto) Eos # (Auto) Baso # (Auto) RBC Morphology Polychromasia Hypochromasia Anisocytosis ESR Percent Retic Haptoglobin Sodium Potassium Chloride Carbon Dioxide BUN Creatinine Estimated GFR BUN/Creatinine Ratio Glucose Hemoglobin A1c Calcium Magnesium Iron TIBC % Saturation Transferrin Total Bilirubin Conjugated Bilirubin Unconjugated Bilirubin AST ALT Alkaline Phosphatase Ammonia Lactate Dehydrogenase Total Creatine Kinase CK-MB (CK-2) CK-MB (CK-2) Rel Index Troponin I C-Reactive Protein NT-Pro-B Natriuret Pep Total Protein Albumin Globulin Albumin/Globulin Ratio Triglycerides Cholesterol LDL Cholesterol, Calc HDL Cholesterol Lipase Procalcitonin 0.11 TSH U Opiates 300ng/mL cut Ur Oxycodone Screen Urine Methadone Screen Ur Barbiturates Screen U Tricyclic Antidepress Ur Phencyclidine Scrn Ur Amphetamines Screen U Methamphetamines Scrn Ur MDMA Scrn (Ecstasy) U Benzodiazepines Scrn Urine Cocaine Screen U Marijuana (THC) Screen Ethyl Alcohol SARS-CoV-2 (PCR) Negative Blood Type O Positive Antibody Screen Negative Crossmatch See Detail 03/12/21 03/12/21 03/12/21 12:03 12:25 13:53 WBC RBC Hgb Hct MCV MCH MCHC RDW Plt Count Neut % (Auto) Lymph % (Auto) [place] % (Auto) Eos % (Auto) Baso % (Auto) Neut # (Auto) Lymph # (Auto) [place] # (Auto) Eos # (Auto) Baso # (Auto) RBC Morphology Polychromasia Hypochromasia Anisocytosis ESR Percent Retic 2.4 Haptoglobin Sodium Potassium Chloride Carbon Dioxide BUN Creatinine Estimated GFR BUN/Creatinine Ratio Glucose Hemoglobin A1c Calcium Magnesium Iron TIBC % Saturation Transferrin Total Bilirubin Conjugated Bilirubin Unconjugated Bilirubin AST ALT Alkaline Phosphatase Ammonia < 9 L Lactate Dehydrogenase Total Creatine Kinase CK-MB (CK-2) CK-MB (CK-2) Rel Index Troponin I C-Reactive Protein NT-Pro-B Natriuret Pep Total Protein Albumin Globulin Albumin/Globulin Ratio Triglycerides Cholesterol LDL Cholesterol, Calc HDL Cholesterol Lipase Procalcitonin TSH U Opiates 300ng/mL cut Ur Oxycodone Screen Urine Methadone Screen Ur Barbiturates Screen U Tricyclic Antidepress Ur Phencyclidine Scrn Ur Amphetamines Screen U Methamphetamines Scrn Ur MDMA Scrn (Ecstasy) U Benzodiazepines Scrn Urine Cocaine Screen U Marijuana (THC) Screen Ethyl Alcohol < 10 SARS-CoV-2 (PCR) Blood Type Antibody Screen Crossmatch 03/12/21 03/12/21 03/12/21 13:53 13:53 13:53 WBC RBC Hgb Hct MCV MCH MCHC RDW Plt Count Neut % (Auto) Lymph % (Auto) [place] % (Auto) Eos % (Auto) Baso % (Auto) Neut # (Auto) Lymph # (Auto) [place] # (Auto) Eos # (Auto) Baso # (Auto) RBC Morphology Polychromasia Hypochromasia Anisocytosis ESR Percent Retic Haptoglobin 110 Sodium Potassium Chloride Carbon Dioxide BUN Creatinine Estimated GFR BUN/Creatinine Ratio Glucose Hemoglobin A1c Calcium Magnesium Iron 12 L TIBC 549 H % Saturation 2 L Transferrin 578 H Total Bilirubin Conjugated Bilirubin Unconjugated Bilirubin AST ALT Alkaline Phosphatase Ammonia Lactate Dehydrogenase 1072 H Total Creatine Kinase CK-MB (CK-2) CK-MB (CK-2) Rel Index Troponin I C-Reactive Protein NT-Pro-B Natriuret Pep Total Protein Albumin Globulin Albumin/Globulin Ratio Triglycerides Cholesterol LDL Cholesterol, Calc HDL Cholesterol Lipase Procalcitonin TSH U Opiates 300ng/mL cut Ur Oxycodone Screen Urine Methadone Screen Ur Barbiturates Screen U Tricyclic Antidepress Ur Phencyclidine Scrn Ur Amphetamines Screen U Methamphetamines Scrn Ur MDMA Scrn (Ecstasy) U Benzodiazepines Scrn Urine Cocaine Screen U Marijuana (THC) Screen Ethyl Alcohol SARS-CoV-2 (PCR) Blood Type Antibody Screen Crossmatch 03/12/21 03/12/21 03/12/21 13:53 19:37 20:23 WBC RBC Hgb 7.9 L Hct 24.9 L MCV MCH MCHC RDW Plt Count Neut % (Auto) Lymph % (Auto) [place] % (Auto) Eos % (Auto) Baso % (Auto) Neut # (Auto) Lymph # (Auto) [place] # (Auto) Eos # (Auto) Baso # (Auto) RBC Morphology Polychromasia Hypochromasia Anisocytosis ESR 14 Percent Retic Haptoglobin Sodium Potassium Chloride Carbon Dioxide BUN Creatinine Estimated GFR BUN/Creatinine Ratio Glucose Hemoglobin A1c Calcium Magnesium Iron TIBC % Saturation Transferrin Total Bilirubin Conjugated Bilirubin Unconjugated Bilirubin AST ALT Alkaline Phosphatase Ammonia Lactate Dehydrogenase Total Creatine Kinase CK-MB (CK-2) CK-MB (CK-2) Rel Index Troponin I C-Reactive Protein NT-Pro-B Natriuret Pep 4480 H Total Protein Albumin Globulin Albumin/Globulin Ratio Triglycerides Cholesterol LDL Cholesterol, Calc HDL Cholesterol Lipase Procalcitonin TSH U Opiates 300ng/mL cut Negative Ur Oxycodone Screen Negative Urine Methadone Screen Negative Ur Barbiturates Screen Negative U Tricyclic Antidepress Negative Ur Phencyclidine Scrn Negative Ur Amphetamines Screen Negative U Methamphetamines Scrn Negative Ur MDMA Scrn (Ecstasy) Negative U Benzodiazepines Scrn Negative Urine Cocaine Screen Negative U Marijuana (THC) Screen Positive H Ethyl Alcohol SARS-CoV-2 (PCR) Blood Type Antibody Screen Crossmatch 03/12/21 03/13/21 03/13/21 20:23 04:50 04:50 WBC 6.7 RBC 2.85 L Hgb 7.6 L Hct 24.2 L MCV 85.0 MCH 26.9 MCHC 31.6 RDW 24.9 H Plt Count 137 L Neut % (Auto) 74.4 Lymph % (Auto) 13.1 L [place] % (Auto) 11.4 Eos % (Auto) 0.3 L Baso % (Auto) 0.8 Neut # (Auto) 5000 Lymph # (Auto) 900 L [place] # (Auto) 800 Eos # (Auto) 0 Baso # (Auto) 100 RBC Morphology See below Polychromasia 1+ H Hypochromasia 2+ H Anisocytosis 3+ H ESR Percent Retic Haptoglobin Sodium 141 Potassium 3.6 Chloride 107 Carbon Dioxide 26 BUN 17 Creatinine 0.74 Estimated GFR > 60.0 BUN/Creatinine Ratio 23.0 H Glucose 95 Hemoglobin A1c Calcium 9.5 Magnesium 2.2 Iron TIBC % Saturation Transferrin Total Bilirubin 0.4 Conjugated Bilirubin 0.0 Unconjugated Bilirubin 0.4 AST 179 H ALT 117 H Alkaline Phosphatase 56 Ammonia Lactate Dehydrogenase Total Creatine Kinase CK-MB (CK-2) CK-MB (CK-2) Rel Index Troponin I C-Reactive Protein 0.7 NT-Pro-B Natriuret Pep Total Protein 6.4 Albumin 4.0 Globulin 2.4 Albumin/Globulin Ratio 1.7 Triglycerides 85 Cholesterol 107 L LDL Cholesterol, Calc 34 HDL Cholesterol 56 Lipase Procalcitonin TSH U Opiates 300ng/mL cut Ur Oxycodone Screen Urine Methadone Screen Ur Barbiturates Screen U Tricyclic Antidepress Ur Phencyclidine Scrn Ur Amphetamines Screen U Methamphetamines Scrn Ur MDMA Scrn (Ecstasy) U Benzodiazepines Scrn Urine Cocaine Screen U Marijuana (THC) Screen Ethyl Alcohol SARS-CoV-2 (PCR) Blood Type Antibody Screen Crossmatch 03/13/21 03/13/21 04:50 04:50 WBC RBC Hgb Hct MCV MCH MCHC RDW Plt Count Neut % (Auto) Lymph % (Auto) [place] % (Auto) Eos % (Auto) Baso % (Auto) Neut # (Auto) Lymph # (Auto) [place] # (Auto) Eos # (Auto) Baso # (Auto) RBC Morphology Polychromasia Hypochromasia Anisocytosis ESR Percent Retic Haptoglobin Sodium Potassium Chloride Carbon Dioxide BUN Creatinine Estimated GFR BUN/Creatinine Ratio Glucose Hemoglobin A1c 5.4 Calcium Magnesium Iron TIBC % Saturation Transferrin Total Bilirubin Conjugated Bilirubin Unconjugated Bilirubin AST ALT Alkaline Phosphatase Ammonia Lactate Dehydrogenase Total Creatine Kinase CK-MB (CK-2) CK-MB (CK-2) Rel Index Troponin I C-Reactive Protein NT-Pro-B Natriuret Pep Total Protein Albumin Globulin Albumin/Globulin Ratio Triglycerides Cholesterol LDL Cholesterol, Calc HDL Cholesterol Lipase Procalcitonin TSH 1.01 U Opiates 300ng/mL cut Ur Oxycodone Screen Urine Methadone Screen Ur Barbiturates Screen U Tricyclic Antidepress Ur Phencyclidine Scrn Ur Amphetamines Screen U Methamphetamines Scrn Ur MDMA Scrn (Ecstasy) U Benzodiazepines Scrn Urine Cocaine Screen U Marijuana (THC) Screen Ethyl Alcohol SARS-CoV-2 (PCR) Blood Type Antibody Screen Crossmatch Assessment & Plan Assessment & Plan narrative: Iron deficiency anemia,symptomatic. H/o gastritis and ulcers. 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 Low yield for EGD, recommend increase PPI to BID and treat iron deficiency for now. COVID-19 COVID-19 status: Negative Time Spent With Patient Time with patient: 15-24 minutes
--- NOTE | 2021-03-13 11:27 | P.PN_ITS ---
Subjective Subjective Date Patient Seen: 03/13/21 Time Patient Seen: 11:28 Interval history: Yamilet Finch is a 60-year-old female with a past medical history of hypertension, hyperlipidemia, chronic back pain, anxiety, and depression who presented to the emergency room after multiple syncopal episodes at home. She is admitted with symptomatic anemia and resulting syncope, with possible acute heart failure based on admission laboratory findings and clinical history. She feels improved after transfusion and a single dose of lasix. Her hemoglobin responded appropriately to 2 unit PRBC transfusion. Continues on IV Protonix. Surgery saw the patient and given her somewhat recent endoscopy did not recommend repeating at this time. She feels slightly stronger, although she has not gotten out of bed yet this morning. She denies any fevers, chills. She has not had a bowel movement since yesterday when she reported it was normal. Exam Vital Signs (past 8 hours): - 03/13/21 05:00 03/13/21 05:53 03/13/21 08:00 Temperature 97.5 F L 98.5 F Pulse Rate 73 73 Respiratory Rate 20 18 Blood Pressure 120/70 145/80 H Pulse Oximetry 96 96 94 03/13/21 09:00 Temperature Pulse Rate Respiratory Rate Blood Pressure Pulse Oximetry 94 Oxygen Delivery Method Room Air Oxygen Flow Rate 0 Narrative Exam Narrative: GENERAL APPEARANCE: Well developed, well nourished, female, appears stated age, slight pallor SKIN: Inspection of the skin reveals no rashes, ulcerations or petechiae. contusion over her L chest posteriorly, anterior R upper chest wall and shoulder HEENT: Normocephalic atraumatic, extraocular muscles are intact, oropharynx is clear and mucous membranes are moist, neck is supple without adenopathy NECK: Supple and symmetric. There was no thyroid enlargement, and no tenderness, or masses were felt. CHEST: Normal AP diameter and normal contour without any kyphoscoliosis. LUNGS: Auscultation of the lungs revealed diminished breath sounds at the bilateral lung bases, no obvious wheezing, rhonchi, rales CARDIOVASCULAR: There was a regular rate and rhythm without any murmurs, gallops, rubs. Peripheral pulses were 2+ and symmetric. ABDOMEN: Soft, non-distended, mild epigastric tenderness. MUSCULOSKELETAL: There was no tenderness or effusions noted. Muscle strength and tone were normal. EXTREMITIES: No cyanosis, clubbing. trace non-pitting edema bilateral lower extremities, slightly improved today NEUROLOGIC: Alert and oriented x 3. slightly slowed responses. Strength is +5/5 in the Upper Extremities and Lower Extremities Bilaterally. Objective Labs Result Diagrams: 03/13/21 04:50 03/13/21 04:50 Labs: Laboratory Results - last 24 hr 03/12/21 03/12/21 03/12/21 11:11 11:11 12:03 WBC 6.8 RBC 2.27 L Hgb 5.8 L* Hct 19.3 L* MCV 84.8 MCH 25.7 L MCHC 30.3 RDW 28.3 H Plt Count 140 L Neut % (Auto) 85.2 H Lymph % (Auto) 5.4 L Mcdowell % (Auto) 7.9 Eos % (Auto) 0.2 L Baso % (Auto) 1.3 Neut # (Auto) 5800 Lymph # (Auto) 400 L Mcdowell # (Auto) 500 Eos # (Auto) 0 Baso # (Auto) 100 RBC Morphology See below Polychromasia 1+ H Hypochromasia 2+ H Anisocytosis 3+ H ESR Percent Retic Haptoglobin Sodium 138 Potassium 3.8 Chloride 106 Carbon Dioxide 22 BUN 24 H Creatinine 0.86 Estimated GFR > 60.0 BUN/Creatinine Ratio 27.9 H Glucose 141 H Hemoglobin A1c Calcium 9.7 Magnesium Iron TIBC % Saturation Transferrin Total Bilirubin 0.4 Conjugated Bilirubin Unconjugated Bilirubin AST 196 H ALT 99 H Alkaline Phosphatase 60 Ammonia Lactate Dehydrogenase Total Creatine Kinase 290 H CK-MB (CK-2) 4.53 H CK-MB (CK-2) Rel Index 1.6 Troponin I < 0.012 C-Reactive Protein NT-Pro-B Natriuret Pep Total Protein 6.7 Albumin 4.3 Globulin 2.4 Albumin/Globulin Ratio 1.8 Triglycerides Cholesterol LDL Cholesterol, Calc HDL Cholesterol Lipase 273 Procalcitonin TSH U Opiates 300ng/mL cut Ur Oxycodone Screen Urine Methadone Screen Ur Barbiturates Screen U Tricyclic Antidepress Ur Phencyclidine Scrn Ur Amphetamines Screen U Methamphetamines Scrn Ur MDMA Scrn (Ecstasy) U Benzodiazepines Scrn Urine Cocaine Screen U Marijuana (THC) Screen Ethyl Alcohol SARS-CoV-2 (PCR) Blood Type Antibody Screen Crossmatch 03/12/21 03/12/21 03/12/21 12:03 12:03 12:03 WBC RBC Hgb Hct MCV MCH MCHC RDW Plt Count Neut % (Auto) Lymph % (Auto) Mcdowell % (Auto) Eos % (Auto) Baso % (Auto) Neut # (Auto) Lymph # (Auto) Mcdowell # (Auto) Eos # (Auto) Baso # (Auto) RBC Morphology Polychromasia Hypochromasia Anisocytosis ESR Percent Retic Haptoglobin Sodium Potassium Chloride Carbon Dioxide BUN Creatinine Estimated GFR BUN/Creatinine Ratio Glucose Hemoglobin A1c Calcium Magnesium Iron TIBC % Saturation Transferrin Total Bilirubin Conjugated Bilirubin Unconjugated Bilirubin AST ALT Alkaline Phosphatase Ammonia Lactate Dehydrogenase Total Creatine Kinase CK-MB (CK-2) CK-MB (CK-2) Rel Index Troponin I C-Reactive Protein NT-Pro-B Natriuret Pep Total Protein Albumin Globulin Albumin/Globulin Ratio Triglycerides Cholesterol LDL Cholesterol, Calc HDL Cholesterol Lipase Procalcitonin 0.11 TSH U Opiates 300ng/mL cut Ur Oxycodone Screen Urine Methadone Screen Ur Barbiturates Screen U Tricyclic Antidepress Ur Phencyclidine Scrn Ur Amphetamines Screen U Methamphetamines Scrn Ur MDMA Scrn (Ecstasy) U Benzodiazepines Scrn Urine Cocaine Screen U Marijuana (THC) Screen Ethyl Alcohol SARS-CoV-2 (PCR) Negative Blood Type O Positive Antibody Screen Negative Crossmatch See Detail 03/12/21 03/12/21 03/12/21 12:03 12:25 13:53 WBC RBC Hgb Hct MCV MCH MCHC RDW Plt Count Neut % (Auto) Lymph % (Auto) Mcdowell % (Auto) Eos % (Auto) Baso % (Auto) Neut # (Auto) Lymph # (Auto) Mcdowell # (Auto) Eos # (Auto) Baso # (Auto) RBC Morphology Polychromasia Hypochromasia Anisocytosis ESR Percent Retic 2.4 Haptoglobin Sodium Potassium Chloride Carbon Dioxide BUN Creatinine Estimated GFR BUN/Creatinine Ratio Glucose Hemoglobin A1c Calcium Magnesium Iron TIBC % Saturation Transferrin Total Bilirubin Conjugated Bilirubin Unconjugated Bilirubin AST ALT Alkaline Phosphatase Ammonia < 9 L Lactate Dehydrogenase Total Creatine Kinase CK-MB (CK-2) CK-MB (CK-2) Rel Index Troponin I C-Reactive Protein NT-Pro-B Natriuret Pep Total Protein Albumin Globulin Albumin/Globulin Ratio Triglycerides Cholesterol LDL Cholesterol, Calc HDL Cholesterol Lipase Procalcitonin TSH U Opiates 300ng/mL cut Ur Oxycodone Screen Urine Methadone Screen Ur Barbiturates Screen U Tricyclic Antidepress Ur Phencyclidine Scrn Ur Amphetamines Screen U Methamphetamines Scrn Ur MDMA Scrn (Ecstasy) U Benzodiazepines Scrn Urine Cocaine Screen U Marijuana (THC) Screen Ethyl Alcohol < 10 SARS-CoV-2 (PCR) Blood Type Antibody Screen Crossmatch 03/12/21 03/12/21 03/12/21 13:53 13:53 13:53 WBC RBC Hgb Hct MCV MCH MCHC RDW Plt Count Neut % (Auto) Lymph % (Auto) Mcdowell % (Auto) Eos % (Auto) Baso % (Auto) Neut # (Auto) Lymph # (Auto) Mcdowell # (Auto) Eos # (Auto) Baso # (Auto) RBC Morphology Polychromasia Hypochromasia Anisocytosis ESR Percent Retic Haptoglobin 110 Sodium Potassium Chloride Carbon Dioxide BUN Creatinine Estimated GFR BUN/Creatinine Ratio Glucose Hemoglobin A1c Calcium Magnesium Iron 12 L TIBC 549 H % Saturation 2 L Transferrin 578 H Total Bilirubin Conjugated Bilirubin Unconjugated Bilirubin AST ALT Alkaline Phosphatase Ammonia Lactate Dehydrogenase 1072 H Total Creatine Kinase CK-MB (CK-2) CK-MB (CK-2) Rel Index Troponin I C-Reactive Protein NT-Pro-B Natriuret Pep Total Protein Albumin Globulin Albumin/Globulin Ratio Triglycerides Cholesterol LDL Cholesterol, Calc HDL Cholesterol Lipase Procalcitonin TSH U Opiates 300ng/mL cut Ur Oxycodone Screen Urine Methadone Screen Ur Barbiturates Screen U Tricyclic Antidepress Ur Phencyclidine Scrn Ur Amphetamines Screen U Methamphetamines Scrn Ur MDMA Scrn (Ecstasy) U Benzodiazepines Scrn Urine Cocaine Screen U Marijuana (THC) Screen Ethyl Alcohol SARS-CoV-2 (PCR) Blood Type Antibody Screen Crossmatch 03/12/21 03/12/21 03/12/21 13:53 19:37 20:23 WBC RBC Hgb 7.9 L Hct 24.9 L MCV MCH MCHC RDW Plt Count Neut % (Auto) Lymph % (Auto) Mcdowell % (Auto) Eos % (Auto) Baso % (Auto) Neut # (Auto) Lymph # (Auto) Mcdowell # (Auto) Eos # (Auto) Baso # (Auto) RBC Morphology Polychromasia Hypochromasia Anisocytosis ESR 14 Percent Retic Haptoglobin Sodium Potassium Chloride Carbon Dioxide BUN Creatinine Estimated GFR BUN/Creatinine Ratio Glucose Hemoglobin A1c Calcium Magnesium Iron TIBC % Saturation Transferrin Total Bilirubin Conjugated Bilirubin Unconjugated Bilirubin AST ALT Alkaline Phosphatase Ammonia Lactate Dehydrogenase Total Creatine Kinase CK-MB (CK-2) CK-MB (CK-2) Rel Index Troponin I C-Reactive Protein NT-Pro-B Natriuret Pep 4480 H Total Protein Albumin Globulin Albumin/Globulin Ratio Triglycerides Cholesterol LDL Cholesterol, Calc HDL Cholesterol Lipase Procalcitonin TSH U Opiates 300ng/mL cut Negative Ur Oxycodone Screen Negative Urine Methadone Screen Negative Ur Barbiturates Screen Negative U Tricyclic Antidepress Negative Ur Phencyclidine Scrn Negative Ur Amphetamines Screen Negative U Methamphetamines Scrn Negative Ur MDMA Scrn (Ecstasy) Negative U Benzodiazepines Scrn Negative Urine Cocaine Screen Negative U Marijuana (THC) Screen Positive H Ethyl Alcohol SARS-CoV-2 (PCR) Blood Type Antibody Screen Crossmatch 03/12/21 03/13/21 03/13/21 20:23 04:50 04:50 WBC 6.7 RBC 2.85 L Hgb 7.6 L Hct 24.2 L MCV 85.0 MCH 26.9 MCHC 31.6 RDW 24.9 H Plt Count 137 L Neut % (Auto) 74.4 Lymph % (Auto) 13.1 L Mcdowell % (Auto) 11.4 Eos % (Auto) 0.3 L Baso % (Auto) 0.8 Neut # (Auto) 5000 Lymph # (Auto) 900 L Mcdowell # (Auto) 800 Eos # (Auto) 0 Baso # (Auto) 100 RBC Morphology See below Polychromasia 1+ H Hypochromasia 2+ H Anisocytosis 3+ H ESR Percent Retic Haptoglobin Sodium 141 Potassium 3.6 Chloride 107 Carbon Dioxide 26 BUN 17 Creatinine 0.74 Estimated GFR > 60.0 BUN/Creatinine Ratio 23.0 H Glucose 95 Hemoglobin A1c Calcium 9.5 Magnesium 2.2 Iron TIBC % Saturation Transferrin Total Bilirubin 0.4 Conjugated Bilirubin 0.0 Unconjugated Bilirubin 0.4 AST 179 H ALT 117 H Alkaline Phosphatase 56 Ammonia Lactate Dehydrogenase Total Creatine Kinase CK-MB (CK-2) CK-MB (CK-2) Rel Index Troponin I C-Reactive Protein 0.7 NT-Pro-B Natriuret Pep Total Protein 6.4 Albumin 4.0 Globulin 2.4 Albumin/Globulin Ratio 1.7 Triglycerides 85 Cholesterol 107 L LDL Cholesterol, Calc 34 HDL Cholesterol 56 Lipase Procalcitonin TSH U Opiates 300ng/mL cut Ur Oxycodone Screen Urine Methadone Screen Ur Barbiturates Screen U Tricyclic Antidepress Ur Phencyclidine Scrn Ur Amphetamines Screen U Methamphetamines Scrn Ur MDMA Scrn (Ecstasy) U Benzodiazepines Scrn Urine Cocaine Screen U Marijuana (THC) Screen Ethyl Alcohol SARS-CoV-2 (PCR) Blood Type Antibody Screen Crossmatch 03/13/21 03/13/21 04:50 04:50 WBC RBC Hgb Hct MCV MCH MCHC RDW Plt Count Neut % (Auto) Lymph % (Auto) Mcdowell % (Auto) Eos % (Auto) Baso % (Auto) Neut # (Auto) Lymph # (Auto) Mcdowell # (Auto) Eos # (Auto) Baso # (Auto) RBC Morphology Polychromasia Hypochromasia Anisocytosis ESR Percent Retic Haptoglobin Sodium Potassium Chloride Carbon Dioxide BUN Creatinine Estimated GFR BUN/Creatinine Ratio Glucose Hemoglobin A1c 5.4 Calcium Magnesium Iron TIBC % Saturation Transferrin Total Bilirubin Conjugated Bilirubin Unconjugated Bilirubin AST ALT Alkaline Phosphatase Ammonia Lactate Dehydrogenase Total Creatine Kinase CK-MB (CK-2) CK-MB (CK-2) Rel Index Troponin I C-Reactive Protein NT-Pro-B Natriuret Pep Total Protein Albumin Globulin Albumin/Globulin Ratio Triglycerides Cholesterol LDL Cholesterol, Calc HDL Cholesterol Lipase Procalcitonin TSH 1.01 U Opiates 300ng/mL cut Ur Oxycodone Screen Urine Methadone Screen Ur Barbiturates Screen U Tricyclic Antidepress Ur Phencyclidine Scrn Ur Amphetamines Screen U Methamphetamines Scrn Ur MDMA Scrn (Ecstasy) U Benzodiazepines Scrn Urine Cocaine Screen U Marijuana (THC) Screen Ethyl Alcohol SARS-CoV-2 (PCR) Blood Type Antibody Screen Crossmatch [facility] Medical History Back pain Chronic diarrhea Depression Easy bruisability Facial lesion Failed cervical fusion (~2007) Fecal incontinence Hearing loss History of UTI HTN (hypertension) Numbness and tingling Pneumonia RLS (restless legs syndrome) Sinus infection (~2007) Stomach ulcer Strain of left groin Tinnitus of right ear Trauma in childhood Trigger thumb, left thumb Surgical History History of ankle surgery (~2003) Hx of colonoscopy Hx of laparoscopic gastric banding (~2004) Family History Mother Cancer Social History household members: significant other Smoking Status: Former smoker alcohol intake: current Assessment & Plan Assessment & Plan narrative: Yamilet Finch is a 60-year-old female with a past medical history of hypertension, hyperlipidemia, chronic back pain, anxiety, and depression who presented to the emergency room after multiple syncopal episodes at home. She is admitted with symptomatic anemia and resulting syncope, with possible acute heart failure based on admission laboratory findings and clinical history. 1. Acute blood loss anemia, presumed secondary to upper GI bleeding, present on admission -suspect upper GI bleeding given reported melanotic appearing stools a few weeks ago and history of NSAID use. Will continue IV Protonix, 40 mg, twice daily. -Hg from 5.8 > 2 U PRBC > 7.9, this AM 7.6. Follow q8 hr today. -last known hemoglobin was over a year ago and was 11.4. -last colonoscopy 2017 was reported as normal, reported EGD as well, will attempt to obtain records. -contacted Dr. Beckett of general surgery, no plans for endoscopy, will advance diet to clears and then as tolerated. -Reticulocyte count is inappropriately normal, may be suppressed in setting of inflammation in setting of possible acute heart failure. -LDH elevated but non-specific. No schistocytes are noted on CBC. Haptoglobin 110. Hemolysis ruled out. 2. Syncope, acute, present on admission - highly suspect orthostatic syncope secondary to anemia. - will monitor with telemetry, TTE as below though cardiac etiology is less likely. Monitor does show some episodes of sinus bradycardia, with primary blo ck. - patient did have a syncopal episode upon arrival to the floor similar to those at home. will check orthostatics today after transfusion is now complete and h/h relatively stable. 3. Possible acute heart failure -patient reports fatigue, orthopnea, lower extremity edema over the past few mon ths. She did have a recent stress test which showed a normal ejection fraction, but this was prior to when her symptoms seemingly started. These may be related to her anemia, however her proBNP is quite elevated and some of her elevated transaminase levels may be indicative of a congestive hepatopathy. This would further explain the imaging findings of gallbladder wall thickening, mild ascites, and small bilateral pleural effusions that were noted on CT of her cervical spine. -s/p 20 mg IV lasix with net negative 1.3L thus far. Some improvement. Further lasix doses depending on TTE today. - TTE pending. 4. Hypertension, chronic - will hold other than lasix in setting of likely orthostatic hypotension given blood loss anemia, check orthostatics today 5. Hyperlipidemia, chronic - will hold home meds temporarily. 6. Chronic back pain - can continue home pain medications. 7. Depression, and anxiety, chronic - continue home medications. 8. New abdominal ascites, pleural effusion, and gallbladder wall thickening. - as above suspect possible acute heart failure which could help to explain these imaging findings. 9. transaminitis, acute, present on admission - suspect heart failure as noted above. Hepatitis panel ordered as well. Code: Full, surrogate decision maker is the patient's spouse. Dispo: Admitted under inpatient status as her stay is expected to exceed 2 mid nights DVT: SCDs given likely acute blood loss anemia Quality VTE Deep Vein Thrombosis/Pulmonary Embolism Present on Admission: No
[2021-03-13] MEDS: PREGABALIN 75 MG CAPSULE PO ×2 (12:04→20:38)
[2021-03-13] MEDS: OXYCODONE IR 5 MG TABLET PO ×2 (12:04→17:58)
[2021-03-13 13:38] LABS: Hematocrit 25.1 % (36-46); Hemoglobin 8.1 g/dL (12.0-16.0)
[2021-03-13 15:42] LABS: Hepatitis B Surface Antigen NEGATIVE s/c (NEGATIVE)
[2021-03-13 15:56] LABS: Hep C Virus Ab w/Reflex Quant NEGATIVE s/c (NEGATIVE)
[2021-03-14] VITALS (9 sets, daily range): BP systolic 127–146; BP diastolic 72–97; PULSE 66–83; RESP 16–20; TEMP 36.5–37.2; O2SAT 93–97
[2021-03-14 02:07] LABS: Hepatitis B Core Antibody Negative (Negative)
[2021-03-14 05:39] LABS: Add Manual Diff / Slide Review NO; Basophils Absolute Auto 100 /uL (0-100); Basophils Percent Auto 1.7 % (0-2); Eosinophils Absolute Auto 100 /uL (0-450); Eosinophils Percent Auto 1.9 % (2-4); Hematocrit 26.6 % (36-46); Hemoglobin 8.4 g/dL (12.0-16.0); Lymphocytes Absolute Auto 800 /uL (1100-4500); Lymphocytes Percent Auto 16.1 % (25-40); Mean Corpuscular HGB Conc 31.4 % (30-36); Mean Corpuscular Hemoglobin 26.5 PG (26-34); Mean Corpuscular Volume 84.4 fL (80-100); Monocytes Absolute Auto 800 /uL (0-900); Monocytes Percent Auto 14.8 % (3-14); Neutrophils Absolute Auto 3400 /uL (1500-7000); Neutrophils Percent Auto 65.5 % (50-75); Platelet Count 155 X10^3/uL (150-400); Red Blood Cell Count 3.15 X10^6/uL (4.0-5.2); Red Cell Distribution Width 24.8 % (11.6-14.8); White Blood Cell Count 5.2 X10^3/uL (4.5-11.0)
[2021-03-14 05:49] LABS: Alanine Aminotransferase 96 IU/L (<35); Albumin Globulin Ratio 1.7 (1.0-2.8); Alkaline Phosphatase 64 U/L (38-126); Aspartate Aminotransferase 89 IU/L (14-36); BUN Creatinine Ratio 17.5 (6-22); Bilirubin Total 0.4 mg/dL (0.2-1.3); Bilirubin Unconjugated 0.4 mg/dL (0.0-1.1); Blood Urea Nitrogen 11 mg/dL (7-17); Calcium 9.4 mg/dL (8.4-10.2); Carbon Dioxide 27 mmol/L (22-32); Chloride 102 mmol/L (98-107); Estimated Glomerular Filt Rate > 60.0 mL/min (>60); Globulin 2.4 g/dL (1.7-4.1); Glucose 100 mg/dL (80-110); HEMOLYSIS < 15 (0-50); Magnesium 2.2 mg/dL (1.6-2.3); Sodium 138 mmol/L (137-145); Total Protein 6.4 g/dL (6.3-8.2)
[2021-03-14 06:28] LABS: Anisocytosis 3+; Hypochromasia 2+
[2021-03-14 06:29] LABS: Polychromasia 1+
[2021-03-14 07:08] LABS: Hepatitis B Surf Ab Qualitativ Non Reactive (.)
[2021-03-14] MEDS: PREGABALIN 75 MG CAPSULE PO ×2 (08:20→20:46)
[2021-03-14] MEDS: ESCITALOPRAM 10 MG TABLET 20 MG PO (08:20)
[2021-03-14] MEDS: FUROSEMIDE 20 MG TABLET PO (08:20)
[2021-03-14] MEDS: FENOFIBRATE 160 MG TABLET PO (08:20)
[2021-03-14] MEDS: POTASSIUM CHLORIDE 40 MEQ in SODIUM CHLORIDE 0.9% 500 ML 130 ML IV (08:21)
[2021-03-14] MEDS: PANTOPRAZOLE 40 MG VIAL 20 MG IV (08:21)
--- NOTE | 2021-03-14 09:30 | PM.PN.1 ---
Subjective Subjective Date Patient Seen: 03/14/21 Time Patient Seen: 10:07 Interval history: Yamilet Finch is a 60-year-old female with a past medical history of hypertension, hyperlipidemia, chronic back pain, anxiety, and depression who presented to the emergency room after multiple syncopal episodes at home. She is admitted with symptomatic anemia and resulting syncope, with possible acute heart failure based on admission laboratory findings and clinical history. She feels improved after transfusion and a single dose of lasix. Her hemoglobin responded appropriately to 2 unit PRBC transfusion yesterday. Change IV Protonix to PO. Surgery saw the patient and given her somewhat recent endoscopy Dr. Beckett GI consult did not recommend scope at this time. Patient's H&H improving, though potassium dropped 3.0 K rider ordered. She feels stronger, patient was up to the chair resting comfort. She denies any fevers, chills. Patient reports that she has not had a bowel movement since before her admission on 03/12/2021, and that her abdominal distension is unchanged from yesterday. Exam Vital Signs (past 8 hours): - 03/14/21 04:18 03/14/21 05:20 03/14/21 08:00 Temperature 97.8 F 98.8 F Pulse Rate 74 77 Pulse Rate [Orthostatic Lying] Pulse Rate [Orthostatic Sitting] Pulse Rate [Orthostatic Standing] Respiratory Rate 16 17 Blood Pressure 135/81 146/97 H Blood Pressure [Orthostatic Lying] Blood Pressure [Orthostatic Sitting] Blood Pressure [Orthostatic Standing] Pulse Oximetry 93 93 94 03/14/21 08:22 Temperature Pulse Rate Pulse Rate [Orthostatic Lying] 77 Pulse Rate [Orthostatic Sitting] 83 Pulse Rate [Orthostatic Standing] 78 Respiratory Rate Blood Pressure Blood Pressure [Orthostatic Lying] 146/97 H Blood Pressure [Orthostatic Sitting] 143/89 H Blood Pressure [Orthostatic Standing] 145/79 H Pulse Oximetry Oxygen Delivery Method Room Air Oxygen Flow Rate 0 Narrative Exam Narrative: GENERAL APPEARANCE: Well developed, well nourished, female, appears stated age, slight pallor SKIN: Inspection of the skin reveals no rashes, ulcerations or petechiae. contusion over her L chest posteriorly, anterior R upper chest wall and shoulder HEENT: Normocephalic atraumatic, extraocular muscles are intact, oropharynx is clear and mucous membranes are moist, neck is supple without adenopathy NECK: Supple and symmetric. There was no thyroid enlargement, and no tenderness, or masses were felt. CHEST: Normal AP diameter and normal contour without any kyphoscoliosis. LUNGS: Auscultation of the lungs revealed diminished breath sounds at the bilateral lung bases, no obvious wheezing, rhonchi, rales CARDIOVASCULAR: There was a regular rate and rhythm without any murmurs, gallops, rubs. Peripheral pulses were 2+ and symmetric. ABDOMEN: Soft, mild distension, bowel sounds hypoactive x4, nontender no organomegaly noted. MUSCULOSKELETAL: There was no tenderness or effusions noted. Muscle strength and tone were normal. EXTREMITIES: No cyanosis, clubbing. edema resolved bilateral lower extremities. NEUROLOGIC: Alert and oriented x 3. slightly slowed responses. Strength is +5/5 in the Upper Extremities and Lower Extremities Bilaterally. Objective Labs Result Diagrams: 03/14/21 05:16 03/14/21 05:16 Labs: Laboratory Results - last 24 hr 03/12/21 03/13/21 03/13/21 13:56 04:50 04:50 WBC RBC Hgb Hct MCV MCH MCHC RDW Plt Count Neut % (Auto) Lymph % (Auto) [place] % (Auto) Eos % (Auto) Baso % (Auto) Neut # (Auto) Lymph # (Auto) [place] # (Auto) Eos # (Auto) Baso # (Auto) RBC Morphology Polychromasia Hypochromasia Anisocytosis Sodium Potassium Chloride Carbon Dioxide BUN Creatinine Estimated GFR BUN/Creatinine Ratio Glucose Calcium Magnesium Total Bilirubin Conjugated Bilirubin Unconjugated Bilirubin AST ALT Alkaline Phosphatase Total Protein Albumin Globulin Albumin/Globulin Ratio Hep Bs Antigen Negative Hep Bs Antibody Non reactive Hep B Core Total Ab Negative Hepatitis C Antibody Negative 03/13/21 03/14/21 03/14/21 13:25 05:16 05:16 WBC 5.2 RBC 3.15 L Hgb 8.1 L 8.4 L Hct 25.1 L 26.6 L MCV 84.4 MCH 26.5 MCHC 31.4 RDW 24.8 H Plt Count 155 Neut % (Auto) 65.5 Lymph % (Auto) 16.1 L [place] % (Auto) 14.8 H Eos % (Auto) 1.9 L Baso % (Auto) 1.7 Neut # (Auto) 3400 Lymph # (Auto) 800 L [place] # (Auto) 800 Eos # (Auto) 100 Baso # (Auto) 100 RBC Morphology See below Polychromasia 1+ H Hypochromasia 2+ H Anisocytosis 3+ H Sodium 138 Potassium 3.0 L Chloride 102 Carbon Dioxide 27 BUN 11 Creatinine 0.63 Estimated GFR > 60.0 BUN/Creatinine Ratio 17.5 Glucose 100 Calcium 9.4 Magnesium 2.2 Total Bilirubin 0.4 Conjugated Bilirubin 0.0 Unconjugated Bilirubin 0.4 AST 89 H ALT 96 H Alkaline Phosphatase 64 Total Protein 6.4 Albumin 4.0 Globulin 2.4 Albumin/Globulin Ratio 1.7 Hep Bs Antigen Hep Bs Antibody Hep B Core Total Ab Hepatitis C Antibody PFSH Medical History Back pain Chronic diarrhea Depression Easy bruisability Facial lesion Failed cervical fusion (~2007) Fecal incontinence Hearing loss History of UTI HTN (hypertension) Numbness and tingling Pneumonia RLS (restless legs syndrome) Sinus infection (~2007) Stomach ulcer Strain of left groin Tinnitus of right ear Trauma in childhood Trigger thumb, left thumb Surgical History History of ankle surgery (~2003) Hx of colonoscopy Hx of laparoscopic gastric banding (~2004) Family History Mother Cancer Social History household members: significant other Smoking Status: Former smoker alcohol intake: current Assessment & Plan Assessment & Plan narrative: Yamilet Finch is a 60-year-old female with a past medical history of hypertension, hyperlipidemia, chronic back pain, anxiety, and depression who presented to the emergency room after multiple syncopal episodes at home. She is admitted with symptomatic anemia and resulting syncope, with possible acute heart failure based on admission laboratory findings and clinical history. 1. Acute blood loss anemia, presumed secondary to upper GI bleeding, present on admission -suspect upper GI bleeding given reported melanotic appearing stools a few weeks ago and history of NSAID use. Will continue IV Protonix, 40 mg, twice daily. -Hg from 5.8 > 2 U PRBC > 7.9, 03/13/21 Hgb:7.6. Today Hgb 8.4/ HCT 26.6. Will repeat H/H today. -last known hemoglobin was over a year ago and was 11.4. -iron studies ordered -last colonoscopy 2018 was reported as normal, reported EGD as well, will attempt to obtain records. -Dr. Beckett of general surgery consult today, no plans for endoscopy, will advance diet as tolerated. Recommended patient follow-up with her shift superintendent caustic cresylate at [facility]. -Reticulocyte count is inappropriately normal, may be suppressed in setting of inflammation in setting of possible acute heart failure. -LDH elevated but non-specific. No schistocytes are noted on CBC. Haptoglobin 110. Hemolysis ruled out. 2. Hypokalemia, acute, not present on admission likely secondary to hydration and blood transfusion -today's potassium 3.0-40 mEq K rider ordered, will re-evaluate potassium. 2. Syncope, acute, present on admission - highly suspect orthostatic syncope secondary to anemia. -fall protocol in place, orthostatics Q shift. - will monitor with telemetry, TTE as below though cardiac etiology is less likely. Monitor does show some episodes of sinus bradycardia, with primary block. - patient did have a syncopal episode upon arrival to the floor similar to those at home. will check orthostatics qShift. 3. Possible acute heart failure -patient reports fatigue, orthopnea, lower extremity edema over the past few months. She did have a recent stress test which showed a normal ejection fraction, but this was prior to when her symptoms seemingly started. These may be related to her anemia, however her proBNP is quite elevated and some of her elevated transaminase levels may be indicative of a congestive hepatopathy. This would further explain the imaging findings of gallbladder wall thickening, mild ascites, and small bilateral pleural effusions that were noted on CT of her cervical spine. -s/p 20 mg IV lasix with net negative 1.3L thus far. Some improvement. Further lasix doses depending on TTE today. - TTE pending. 4. Hypertension, chronic - will hold other than lasix in setting of likely orthostatic hypotension given blood loss anemia, check orthostatics Qshift 5. Hyperlipidemia, chronic - will hold home meds temporarily. 6. Chronic back pain - can continue home pain medications. 7. Depression, and anxiety, chronic - continue home medications. 8. New abdominal ascites, pleural effusion, and gallbladder wall thickening. - as above suspect possible acute heart failure which could help to explain these imaging findings. -appears stable, possible patient's baseline patient may also be constipated will provide bowel regimen. 9. transaminitis, acute, present on admission -Upon admit AST 179/ALT 117, alk-phos 56. Today's a.m. AST 89/ALT 96- improving - suspect heart failure as noted above, with possible contributing factor alcohol use. Hepatitis panel negative. Recommend patient be discharged tomorrow if H&H remains stable, potassium resolves, patient passes stool and can tolerate diet without any difficulty. -PT/OT evaluation ordered today Code: Full, surrogate decision maker is the patient's spouse. Dispo: Admitted under inpatient status as her stay is expected to exceed 2 midnights DVT: SCDs given likely acute blood loss anemia Quality VTE Deep Vein Thrombosis/Pulmonary Embolism Present on Admission: No
--- NOTE | 2021-03-14 09:49 | PC.NURSE ---
Patient is a getting an iv potassium rider at this time and tolerating well, no pain or redness at iv site. She is sitting up in the chair and has been moving independently in her room. Patient does have an abrasion on her knee, and some bruising on her body from having falls at home.
[2021-03-14] MEDS: DOCUSATE 100 MG CAPSULE PO (12:43)
[2021-03-14] MEDS: SENNOSIDES 8.6 MG TABLET PO (12:43)
[2021-03-14 13:07] LABS: HEMOLYSIS 41 (0-50); Potassium 3.5 mmol/L (3.4-5.1)
[2021-03-14 13:10] LABS: HEMOLYSIS 37 (0-50); Iron 26 ug/dL (37-170)
[2021-03-14 13:11] LABS: Lactate (Lactic Acid) 1.8 mmol/L (0.7-2.1)
[2021-03-14 13:21] LABS: Percent Iron Saturation 5 % (15-50); Total Iron Binding Capacity 534 ug/dL (265-497); Transferrin 637 mg/dL (206-381)
--- NOTE | 2021-03-14 14:03 | OT.IP.EVAL ---
Current Diagnoses Acute posthemorrhagic anemia (03/12/21) Past Medical History (Last Reviewed 03/14/21 @ 09:31 [facility] Back pain Chronic diarrhea Depression Easy bruisability Facial lesion Failed cervical fusion (~2007) Fecal incontinence Hearing loss History of UTI HTN (hypertension) Numbness and tingling Pneumonia RLS (restless legs syndrome) Sinus infection (~2007) Stomach ulcer Strain of left groin Tinnitus of right ear Trauma in childhood Trigger thumb, left thumb Surgical History (Last Reviewed 03/14/21 @ 09:31 [facility] History of ankle surgery (~2003) Hx of colonoscopy Hx of laparoscopic gastric banding (~2004) Occupational Therapy Inpatient Evaluation/Re-Eval M1 PT/OT-IP Prior Functional Status Start: 03/14/21 14:13 Freq: NEEDED Status: Active Protocol: Document 03/14/21 14:13 [facility] (Rec: 03/14/21 14:52 [facility] [id number]) Medical Review Prior Functional Status Medical History Reviewed Yes Communication Independent. Mobility and Gait Pt states due to her bad left hip, that she mainly furniture cruises on furniture or counters at home. Pt has a 4ww but does not use it in the house as it is too big. Activities of Daily Living and IADL's Pt states needing increased time for LB dressing, and IADL needs. Pt states prefers to get into the bathtub by carefully stepping in and holding to both sides of the tub to lower and raise herself up from the tub. Social History Household Members significant other Living Arrangements House Number of Stairs To Enter/Railing? 3 steps with bilateral rails. Pt states tends to hang on the left rail more due to her bad hip. Pt states has a ramp but prefers to use the steps. Home Environment Walk in Shower,Tub/Shower Home Equipment Four Wheel Walker,Straight Cane,Raised Toilet Seat Without Armrests M2 OT-IP Current Condition Start: 03/14/21 14:13 Freq: Status: Active Protocol: Document 03/14/21 14:13 [facility] (Rec: 03/14/21 14:52 [facility] [id number]) Occupational Therapy Current Condition Current Condition Evaluation Date 03/14/21 Treatment Diagnosis Acute Blood loss, syncope, decreased mobility Diagnosis Onset Date 03/12/21 M3 OT- IP Subjective and Pain Start: 03/14/21 14:13 Freq: Status: Active Protocol: Document 03/14/21 14:13 [facility] (Rec: 03/14/21 14:52 [facility] [id number]) OT- Subjective Occupational Therapy Visit Type Type Initial Evaluation Visit Start Time 13:08 Visit Stop Time 14:03 Total Visit Minutes 55 Occupational Therapy Visit Comments Patient Comments Pt agreed to get up for OT eval. Pt very tearful during the session. Patient/Caregiver Goals To go home. OT Pain Assessment Pain When Pain Assessed At Rest Pain Present Pain Present Pain Reported M4 OT- IP ADL's Start: 03/14/21 14:13 Freq: Status: Active Protocol: Document 03/14/21 14:13 [facility] (Rec: 03/14/21 14:52 [facility] [id number]) OT [id number] Comments OT Self-Feeding Comments NOt at meal time. OT ADL-Grooming General Evaluation Grooming Ability Standby Assistance Areas Needing Assistance Retrieving/Set-up of Grooming Items OT ADL-Oral Care Comments Oral Care Comments NOt performed. OT ADL-Dressing General Eval Lower Body Dressing Ability Standby Assistance Comments OT Dressing Comments Pt able to cross her legs to be able to rajni/doff her socks . Pt states her significant other is able to assist her if needed. OT ADL-Toileting Comments OT Toileting Comments Pt not having to go. OT ADL-Bathing Comments OT Bathing Comments Pt states has ordered a shower chair. Pt states would now consider using walk in shower now as would be better for her left hip at this time. M5 OT- IP IADL's Start: 03/14/21 14:13 Freq: Status: Active Protocol: Document 03/14/21 14:13 [facility] (Rec: 03/14/21 14:52 [facility] [id number]) OT-Instrumental Activities of Daily Living Home Safety Awareness Awareness of Need for Assistance at Home Good Awareness Ability to Problem Solve Emergency Able to Problem Solve Situations Medication Management Medication Management Comments Would be best at this time as pt is very emotional to have assist to double check for safety with medication needs. Meal Preparation Meal Preparation Caregiver Provides Assist Director Of Premium Seat Sales Director Of Premium Seat Sales Caregiver Provides Assist Driving Driving Concerns Identified Regarding Safety Driving Comments Pt states does not feel that she would be up for driving at this time and just let her significant other drive for now. M6 OT- IP Functional Cognition Start: 03/14/21 14:13 Freq: Status: Active Protocol: Document 03/14/21 14:13 [facility] (Rec: 03/14/21 14:52 [facility] [id number]) Cognitive Factors Limiting Selfcare Function Cognitive Ability Level of Alertness Alert Patient Orientation Name,Age,Birthday,Month,Date, Year,Day of Week,Place, Situation Attention Span Ability Capable of Focused Attention, Capable of Sustained Attention Ability to Follow Commands Able to Follow Multi-Step Commands Memory Description Short Term Impaired Safety Awareness Underestimates Need for Assistance Problem Solving Ability Needs Assist to Identify Solutions Executive Function Ability Unable to Filter Distractions, Unable to Remember Details Cognitive Tests SLUMS Pt scored 26/[address] [facility] Mental Status which implies mild neuro-cognitive disorder. However pt very emotional which could have also influenced her score. Pt able to recall 3/5 words after time passed, needing extra time to be aware to draw in the numbers on the clock in the correct spacing, and able to answer 3/4 questions after time passed. Cognitive Comments Cognitive Assessment Comments Pt able to needing safety cues to keep the FWW in front of her at all times for safety when up at the sink to brush her hair. Pt scored 140 seconds on [place] Making Part B which her score is below 20% for her age. A score of 75 seconds is at the 50% for her age. Pt's score implies that she has significant impairment for task switching, speed of processing, mental flexibility , executive function, and visual attention. Pt aware best for her not to drive at this time. Pt's states the pandemic has been really stressful for her, able to talk to pt regarding stress management suggestions. Per oil field caser, pt does see Dr. Fitzgerald. OT- Vision and Hearing OT- Hearing Assessment OT- Hearing Assessment WFL OT- Vision Assessment Visual Acuity Glasses All The Time M7 OT- IP Mobility and Balance Start: 03/14/21 14:13 Freq: Status: Active Protocol: Document 03/14/21 14:13 [facility] (Rec: 03/14/21 14:52 [facility] [id number]) OT- Bed Mobility Assessment Rolling Type of Rolling Roll to Right Level of Assistance Standby Assistance Supine to Sit Supine to Sit Assist Standby Assistance OT-Transfer Assessment Sit to and From Stand Sit to and from Stand Standby Assistance Transfers Transfer Ability Standby Assistance Technique Transfer Destination Bed,Chair Transfer Technique Stand Step Pivot Devices Transfer Assistive Devices Gait Belt,Front Wheeled Walker Comments Mobility Comments Pt able to get around in the room with FWW with heavy use of BUE on the FWW as states not able to place much weight on her left hip, pt states looking to have her left replaced down the road. OT- Gait Assessment Gait Gait Assistance Required: Standby Assistance Assistive Devices Assistive Device Gait Belt,Front Wheeled Walker OT- Balance Assessment Sitting Balance and Reactions Static Sitting Balance Ability Normal Dynamic Sitting Balance Ability Normal Standing Balance and Reactions Static Standing Balance Ability Fair Comments Other Balance Tests/Deviations/Treatment Pt flavors her right LE while : standing. M8 OT- IP Objective Assessments Start: 03/14/21 14:13 Freq: Status: Active Protocol: Document 03/14/21 14:13 [facility] (Rec: 03/14/21 14:52 [facility] [id number]) OT Gross Range of Motion Upper Extremity Range of Motion Assessment Within Functional Limits OT-Muscle Tone Assessment Muscle Tone WNL Yes M9 OT- IP Assessment and Plan Start: 03/14/21 14:13 Freq: Status: Active Protocol: Document 03/14/21 14:13 [facility] (Rec: 03/14/21 14:52 [facility] [id number]) OT Summary Assessment and Plan Potential Rehabilitation Potential Good Analytic Complexity at Evaluation Low Summary OT Impairments Balance,Functional Cognition, Functional Mobility,Grooming, Dressing,Toileting,Bathing, Toilet Transfers,Shower Transfers,Activity Tolerance Progress Towards Goals Progressing Toward Goals Assessment Summary Pt low complexity and main barrier is steps, pain with left hip and back , having difficulty concentrating and with short term memory needs. Pt states has a supportive significant other to assist her at home. Goals Self-Feeding Goal Independent Grooming Goal Independent Dressing Goal Independent Toileting Goal Independent Bathing Goal Standby Assistance Toilet Transfer Goal Independent Shower Transfer Goal Independent Days to Meet Goals 2 Frequency of Treatment Frequency Of Treatment Once a Day Treatment Plan OT Treatment Plan ADL Training,Functional Cognition Training,Functional Mobility,Patient/Family Education,Discharge Planning Other Treatment Recommendations and Next shower if still here Treatment Focus Discharge Recommendations OT Discharge Recommendations Home with Assistance Home Equipment Needs FWW, shower chair Transportation Needs at Discharge Private Vehicle
--- NOTE | 2021-03-14 16:26 | PT.IIE ---
Current Diagnoses Acute posthemorrhagic anemia (03/12/21) Surgical History (Last Reviewed 03/14/21 @ 09:31 by CHERYL Adames) History of ankle surgery (~2003) Hx of colonoscopy Hx of laparoscopic gastric banding (~2004) Medical History (Last Reviewed 03/14/21 @ 09:31 by CYRIL Adames) Back pain Chronic diarrhea Depression Easy bruisability Facial lesion Failed cervical fusion (~2007) Fecal incontinence Hearing loss History of UTI HTN (hypertension) Numbness and tingling Pneumonia RLS (restless legs syndrome) Sinus infection (~2007) Stomach ulcer Strain of left groin Tinnitus of right ear Trauma in childhood Trigger thumb, left thumb Physical Therapy Inpatient Evaluation/Re-Eval M1 PT/OT-IP Prior Functional Status Start: 03/14/21 14:13 Freq: NEEDED Status: Active Protocol: Document 03/14/21 16:05 [facility] (Rec: 03/14/21 16:26 [facility] [id number]) Medical Review Prior Functional Status Medical History Reviewed Yes Communication Independent. Mobility and Gait Pt states due to her bad left hip mainly furniture cruises on furniture or counters at home. Pt has a 4ww but does not use it in the house as it is too big. Activities of Daily Living and IADL's Pt states needing increased time for LB dressing, and IADL needs. Pt states prefers to get into the bathroom by carefully steeping in and holding to both sides of the tub to lower and raise herself up from the tub. Social History Household Members significant other Living Arrangements House Number of Stairs To Enter/Railing? 3 steps with bilateral rails. Pt states tends to hang on the left rail more due to her bad hip. Pt states has a ramp but prefers to use the steps. Home Environment Walk in Shower,Tub/Shower Home Equipment Four Wheel Walker,Straight Cane,Raised Toilet Seat Without Armrests Employment Status Retired M2 PT-IP Current Condition Start: 03/14/21 16:05 Freq: Status: Active Protocol: Document 03/14/21 16:05 [facility] (Rec: 03/14/21 16:26 [facility] [id number]) Physical Therapy Current Condition Current Condition Evaluation Date 03/14/21 Treatment Diagnosis acute posthemorrhagic anemia M3 PT-IP Subjective Start: 03/14/21 16:05 Freq: Status: Active Protocol: Document 03/14/21 16:05 [facility] (Rec: 03/14/21 16:26 [facility] [id number]) Subjective Physical Therapy Visit Type Type Initial Evaluation Visit Start Time 14:45 Visit Stop Time 15:15 Total Visit Minutes 30 Notes pt was seen by OT prior to PT evaluation Physical Therapy Visit Comments Patient Comments Pt is sitting up in the chair, she agrees to PT Therapy Pain Assessment Pain When Pain Assessed At Rest Location left hip Intensity 5 Scale Used Numeric (0 - 10) M4 PT-IP Mobility and Gait Start: 03/14/21 16:05 Freq: Status: Active Protocol: Document 03/14/21 16:05 [facility] (Rec: 03/14/21 16:26 [facility] [id number]) PT-Transfer Assessment Sit to and From Stand Sit to and from Stand Contact Guard Assistance Equipment Transfer Assistive Device Gait Belt,Front Wheeled Walker Orthotic/Prosthetic Devices or Brace: No Transfers Transfer Destination Bed Transfer Ability Level of Assist Standby Assistance Gait Assessment Gait Gait Assistance Required: Contact Guard Assist Distance (Feet) 20 Able to Maintain Weight Bearing Status Yes During Gait Gait Deviations General Gait Pattern Decreased Stride Length PT-Balance Assessment Sitting Balance and Reactions Static Sitting Balance Ability Good Dynamic Sitting Balance Ability Good Standing Balance and Reactions Static Standing Balance Ability Good Dynamic Standing Balance Ability Fair Device Used fww M5 PT-IP Objective Assessments Start: 03/14/21 16:05 Freq: Status: Active Protocol: Document 03/14/21 16:05 [facility] (Rec: 03/14/21 16:26 [facility] [id number]) Gross Range of Motion Upper Extremity ROM Assessment Within Functional Limits Lower Extremity ROM Assessment Left Impaired Impairments Decreased full ROM of the left hip 100 degrees flexion Strength Upper Extremity Strength Assessment Within Functional Limits Lower Extremity Strength Assessment Left Impaired Hip left hip flexion 3+/5 Other Assessments Other Other Assessments pt is low complexity with chief complaints of pain in her left hip and back and she is very emotional at this time . She notes having difficulty concentrating and with short term memory. Yamilet does note she has a very supportive significant other to assist her at home. She was able to transfer with CGA and ambulated in the room for me with the FWW and CGA. She does use her UE quite a bit with the fww. Pt is hoping to have her left hip replaced and did c/o of left sided hip pain today but it didn't stop her from mobilizing. M6 PT-IP Treatment Start: 03/14/21 16:05 Freq: Status: Active Protocol: Document 03/14/21 16:05 [facility] (Rec: 03/14/21 16:26 [facility] [id number]) Physical Therapy Treatment Education Education Provided Safety M7 PT-IP Assessment and Plan Start: 03/14/21 16:05 Freq: Status: Active Protocol: Document 03/14/21 16:05 [facility] (Rec: 03/14/21 16:26 [facility] [id number]) PT Summary Assessment and Plan Potential Rehabilitation Potential Good Status of Condition at Evaluation Evolving Summary Impairments Pain,Strength,Balance Assessment Summary Pt is low complexity with chief complaints of pain in her left hip and low back. She is hoping to have a hip replacement. She underwent lumbar fusion in 2018 and after that time her hip started bothering her. She reports recently she herniated her T10 disc and this may have contributed to her anxiety and SOB she was experiencing. Pt is very emotional at this time. She was able to transfer CGA and ambulate in the room CGA with fww. She does report having a significant other at home who can help assist her at home. She has not been using her 4 wheeled walker at home as it wasn't fitting in her house so I recommend fww for home use. Goals Bed Mobility Goal Independent Transfer Goal Independent Gait Goal Independent Gait Distance 100 feet Days to Meet Goals 2 Frequency of Treatment Frequency Of Treatment Once a Day Treatment Plan Physical Therapy Treatment Plan Gait Training,Therapeutic Exercise,Balance Retraining Recommendations To Nursing Amount of Assist Needed 1 Person Assist Discharge Recommendations PT Discharge Recommendations Home with Assistance Equipment Needed for Home Before fww Discharge
[2021-03-14] MEDS: PANTOPRAZOLE 20 MG TABLET PO (20:46)
[2021-03-14] MEDS: OXYCODONE IR 5 MG TABLET PO (20:46)
[2021-03-14] MEDS: SODIUM CHLORIDE 0.9% FLUSH 10 ML IV (20:48)
[2021-03-15 02:16] VITALS: BP 128/88; BP 144/77; BP 149/92; PULSE 75; PULSE 81; RESP 18; TEMP 36.4; O2SAT 96
[2021-03-15] MEDS: OXYCODONE IR 5 MG TABLET PO (03:43)
[2021-03-15 05:23] VITALS: BP 123/83; PULSE 68; RESP 18; TEMP 36.6; O2SAT 93
[2021-03-15 05:39] LABS: Add Manual Diff / Slide Review NO; Basophils Absolute Auto 0 /uL (0-100); Eosinophils Absolute Auto 200 /uL (0-450); Hematocrit 26.2 % (36-46); Hemoglobin 8.4 g/dL (12.0-16.0); Lymphocytes Absolute Auto 700 /uL (1100-4500); Mean Corpuscular Hemoglobin 26.6 PG (26-34); Mean Corpuscular Volume 83.2 fL (80-100); Monocytes Absolute Auto 600 /uL (0-900); Monocytes Percent Auto 12.7 % (3-14); Neutrophils Absolute Auto 3300 /uL (1500-7000); Neutrophils Percent Auto 67.3 % (50-75); Platelet Count 194 X10^3/uL (150-400); Red Blood Cell Count 3.16 X10^6/uL (4.0-5.2); White Blood Cell Count 4.9 X10^3/uL (4.5-11.0)
[2021-03-15 05:47] LABS: Alanine Aminotransferase 70 IU/L (<35); Albumin 3.6 g/dL (3.5-5.0); Albumin Globulin Ratio 1.4 (1.0-2.8); Alkaline Phosphatase 54 U/L (38-126); Aspartate Aminotransferase 50 IU/L (14-36); BUN Creatinine Ratio 10.8 (6-22); Bilirubin Total 0.4 mg/dL (0.2-1.3); Bilirubin Unconjugated 0.4 mg/dL (0.0-1.1); Blood Urea Nitrogen 7 mg/dL (7-17); Calcium 9.2 mg/dL (8.4-10.2); Carbon Dioxide 28 mmol/L (22-32); Chloride 104 mmol/L (98-107); Estimated Glomerular Filt Rate > 60.0 mL/min (>60); Globulin 2.5 g/dL (1.7-4.1); Glucose 100 mg/dL (80-110); HEMOLYSIS < 15 (0-50); Potassium 3.1 mmol/L (3.4-5.1); Sodium 138 mmol/L (137-145); Total Protein 6.1 g/dL (6.3-8.2)
[2021-03-15 06:00] VITALS: O2SAT 97
[2021-03-15 06:09] LABS: Anisocytosis 3+; Hypochromasia 1+; Polychromasia 1+
[2021-03-15] MEDS: PANTOPRAZOLE 20 MG TABLET PO (06:37)
[2021-03-15 08:00] VITALS: BP 140/70; BP 140/84; BP 141/77; PULSE 71; PULSE 75; PULSE 83; RESP 18; TEMP 36.7; O2SAT 94
[2021-03-15] MEDS: FENOFIBRATE 160 MG TABLET PO (08:15)
[2021-03-15] MEDS: PREGABALIN 75 MG CAPSULE PO (08:15)
[2021-03-15] MEDS: ESCITALOPRAM 10 MG TABLET 20 MG PO (08:15)
[2021-03-15] MEDS: SODIUM CHLORIDE 0.9% FLUSH 10 ML IV (08:15)
[2021-03-15] MEDS: POTASSIUM CHLORIDE 30 MEQ in SODIUM CHLORIDE 0.9% 250 ML 88.333 ML IV (08:15)
[2021-03-15] MEDS: SENNOSIDES 8.6 MG TABLET PO (08:15)
[2021-03-15] MEDS: POTASSIUM CHLORIDE 20 MEQ TAB PO (10:43)
[2021-03-15 12:00] VITALS: BP 136/80; PULSE 72; RESP 17; TEMP 36.9; O2SAT 100
--- NOTE | 2021-03-15 12:02 | PT.IPTN ---
Current Diagnoses Acute posthemorrhagic anemia (03/12/21) Physical Therapy Treatment Note M2 PT-IP Current Condition Start: 03/14/21 16:05 Freq: Status: Active Protocol: Document 03/14/21 16:05 [facility] (Rec: 03/14/21 16:26 [facility] [id number]) Physical Therapy Current Condition Current Condition Evaluation Date 03/14/21 Treatment Diagnosis acute posthemorrhagic anemia M3 PT-IP Subjective Start: 03/14/21 16:05 Freq: Status: Active Protocol: Document 03/15/21 12:02 AW (Rec: 03/15/21 12:22 AW [id number]) Subjective Physical Therapy Visit Type Type Treatment Note Visit Start Time 11:50 Visit Stop Time 12:02 Total Visit Minutes 12 Number of READING AIDE Visits 0 Physical Therapy Visit Comments Patient Comments Pt is willing to participate with PT Therapy Pain Assessment Pain When Pain Assessed At Rest Location left hip Scale Used not quantified M4 PT-IP Mobility and Gait Start: 03/14/21 16:05 Freq: Status: Active Protocol: Document 03/15/21 12:02 [facility] (Rec: 03/15/21 12:22 AW [id number]) PT-Transfer Assessment Sit to and From Stand Sit to and from Stand Standby Assistance Equipment Transfer Assistive Device Gait Belt,Front Wheeled Walker Orthotic/Prosthetic Devices or Brace: No Transfers Transfer Destination Chair Transfer Ability Level of Assist Standby Assistance Comments Mobility Comments Pt was sitting up in the chair as PT arrived. BP 130/62 HR 76. She stood from the chair and used FWW to ambulate around the unit. Gait was notable for decreased LLE stance time but pt was safe with FWW requiring no more than SBA. On return to the room, she requested to sit on the chair again. Pt was left with call light and all needs in reach. Gait Assessment Gait Gait Assistance Required: Standby Assistance Distance (Feet) 120 Able to Maintain Weight Bearing Status Yes During Gait Assistive Devices Assistive Device Gait Belt,Front Wheeled Walker Orthotic/Prosthetic Devices or Brace: No Gait Deviations General Gait Pattern Antalgic,Decreased Stride Length,Step-to Gait Factors Limiting Gait Function Factors Limiting Gait Function Pain,Poor Balance Comments Gait Comments See mobility comments for details Stair Climbing Assessment Comments Stair Climbing Comments Not assessed. PT-Balance Assessment Sitting Balance and Reactions Static Sitting Balance Ability Good Dynamic Sitting Balance Ability Good Standing Balance and Reactions Static Standing Balance Ability Good Dynamic Standing Balance Ability Fair Device Used fww M5 PT-IP Objective Assessments Start: 03/14/21 16:05 Freq: Status: Active Protocol: Document 03/14/21 16:05 [facility] (Rec: 03/14/21 16:26 [facility] [id number]) Gross Range of Motion Upper Extremity ROM Assessment Within Functional Limits Lower Extremity ROM Assessment Left Impaired Impairments Decreased full ROM of the left hip 100 degrees flexion Strength Upper Extremity Strength Assessment Within Functional Limits Lower Extremity Strength Assessment Left Impaired Hip left hip flexion 3+/5 Other Assessments Other Other Assessments pt is low complexity with chief complaints of pain in her left hip and back and she is very emotional at this time . She notes having difficulty concentrating and with short term memory. Yamilet does note she has a very supportive significant other to assist her at home. She was able to transfer with CGA and ambulated in the room for me with the FWW and CGA. She does use her UE quite a bit with the fww. Pt is hoping to have her left hip replaced and did c/o of left sided hip pain today but it didn't stop her from mobilizing. M6 PT-IP Treatment Start: 03/14/21 16:05 Freq: Status: Active Protocol: Document 03/15/21 12:02 AW (Rec: 03/15/21 12:22 AW [id number]) Physical Therapy Treatment Education Education Provided Safety M7 PT-IP Assessment and Plan Start: 03/14/21 16:05 Freq: Status: Active Protocol: Document 03/15/21 12:02 [facility] (Rec: 03/15/21 12:22 AW [id number]) PT Summary Assessment and Plan Summary Impairments Pain,Strength,Balance,Gait Progress Towards Goals Progressing Toward Goals,Safe For Discharge Assessment Summary Pt improved her mobility this date, using FWW for ambulation of 120 feet SBA. She states she will be able to borrow a FWW for home use. No further acute PT needs are identified. PT will discharge current orders. Goals Bed Mobility Goal Independent Transfer Goal Independent Gait Goal Independent Gait Distance 100 feet Frequency of Treatment Frequency Of Treatment Discharge Treatment Plan Physical Therapy Treatment Plan Gait Training,Therapeutic Exercise,Balance Retraining Recommendations To Nursing Amount of Assist Needed Standby Assistance Discharge Recommendations PT Discharge Recommendations Home with Assistance Equipment Needed for Home Before fww Discharge Transportation Needs at Discharge Private Vehicle
--- NOTE | 2021-03-15 12:42 | P.PN_ITS ---
Exam Vital Signs (past 8 hours): - 03/15/21 05:23 03/15/21 06:00 03/15/21 08:00 Temperature 97.8 F 98.0 F Pulse Rate 68 71 Pulse Rate [Orthostatic Lying] 71 Pulse Rate [Orthostatic Sitting] 83 Pulse Rate [Orthostatic Standing] 75 Respiratory Rate 18 18 Blood Pressure 123/83 141/77 H Blood Pressure [Orthostatic Lying] 141/77 H Blood Pressure [Orthostatic Sitting] 140/70 Blood Pressure [Orthostatic Standing] 140/84 Pulse Oximetry 93 97 94 03/15/21 12:00 Temperature 98.5 F Pulse Rate 72 Pulse Rate [Orthostatic Lying] Pulse Rate [Orthostatic Sitting] Pulse Rate [Orthostatic Standing] Respiratory Rate 17 Blood Pressure 136/80 Blood Pressure [Orthostatic Lying] Blood Pressure [Orthostatic Sitting] Blood Pressure [Orthostatic Standing] Pulse Oximetry 100 Oxygen Delivery Method Room Air Oxygen Flow Rate 0 Objective Labs Result Diagrams: 03/15/21 05:18 03/15/21 05:18 Labs: Laboratory Results - last 24 hr 03/14/21 03/14/21 03/14/21 12:50 12:50 12:50 WBC RBC Hgb Hct MCV MCH MCHC RDW Plt Count Neut % (Auto) Lymph % (Auto) Elliott % (Auto) Eos % (Auto) Baso % (Auto) Neut # (Auto) Lymph # (Auto) Elliott # (Auto) Eos # (Auto) Baso # (Auto) RBC Morphology Polychromasia Hypochromasia Anisocytosis Percent Retic 3.0 H Sodium Potassium 3.5 Chloride Carbon Dioxide BUN Creatinine Estimated GFR BUN/Creatinine Ratio Glucose Lactate 1.8 Calcium Magnesium Iron TIBC % Saturation Transferrin Total Bilirubin Conjugated Bilirubin Unconjugated Bilirubin AST ALT Alkaline Phosphatase Total Protein Albumin Globulin Albumin/Globulin Ratio 03/14/21 03/15/21 03/15/21 12:50 05:18 05:18 WBC 4.9 RBC 3.16 L Hgb 8.4 L Hct 26.2 L MCV 83.2 MCH 26.6 MCHC 32.0 RDW 25.0 H Plt Count 194 Neut % (Auto) 67.3 Lymph % (Auto) 15.0 L Elliott % (Auto) 12.7 Eos % (Auto) 4.0 Baso % (Auto) 1.0 Neut # (Auto) 3300 Lymph # (Auto) 700 L Elliott # (Auto) 600 Eos # (Auto) 200 Baso # (Auto) 0 RBC Morphology See below Polychromasia 1+ H Hypochromasia 1+ H Anisocytosis 3+ H Percent Retic Sodium 138 Potassium 3.1 L Chloride 104 Carbon Dioxide 28 BUN 7 Creatinine 0.65 Estimated GFR > 60.0 BUN/Creatinine Ratio 10.8 Glucose 100 Lactate Calcium 9.2 Magnesium 2.0 Iron 26 L TIBC 534 H % Saturation 5 L Transferrin 637 H Total Bilirubin 0.4 Conjugated Bilirubin 0.0 Unconjugated Bilirubin 0.4 AST 50 H ALT 70 H Alkaline Phosphatase 54 Total Protein 6.1 L Albumin 3.6 Globulin 2.5 Albumin/Globulin Ratio 1.4 PFSH Medical History Back pain Chronic diarrhea Depression Easy bruisability Facial lesion Failed cervical fusion (~2007) Fecal incontinence Hearing loss History of UTI HTN (hypertension) Numbness and tingling Pneumonia RLS (restless legs syndrome) Sinus infection (~2007) Stomach ulcer Strain of left groin Tinnitus of right ear Trauma in childhood Trigger thumb, left thumb Surgical History History of ankle surgery (~2003) Hx of colonoscopy Hx of laparoscopic gastric banding (~2004) Family History Mother Cancer Social History household members: significant other Smoking Status: Former smoker alcohol intake: current Assessment & Plan Assessment & Plan narrative: Yamilet Finch is a 60-year-old female with a past medical history of hypertension, hyperlipidemia, chronic back pain, anxiety, and depression who presented to the emergency room after multiple syncopal episodes at home. She is admitted with symptomatic anemia and resulting syncope, with possible acute heart failure based on admission laboratory findings and clinical history. 1. Acute blood loss anemia, presumed secondary to upper GI bleeding, present on admission -suspect upper GI bleeding given reported melanotic appearing stools a few weeks ago and history of NSAID use. Will continue IV Protonix, 40 mg, twice daily. -Hg from 5.8 > 2 U PRBC > 7.9, 03/13/21 Hgb:7.6. Today Hgb 8.4/ HCT 26.6. Will repeat H/H today. -last known hemoglobin was over a year ago and was 11.4. -iron studies ordered -last colonoscopy 2017 was reported as normal, reported EGD as well, will attempt to obtain records. -Dr. Beckett of general surgery consult today, no plans for endoscopy, will advance diet as tolerated. Recommended patient follow-up with her otr flatbed driver at [facility]. -Reticulocyte count is inappropriately normal, may be suppressed in setting of inflammation in setting of possible acute heart failure. -LDH elevated but non-specific. No schistocytes are noted on CBC. Haptoglobin 110. Hemolysis ruled out. 2. Hypokalemia, acute, not present on admission likely secondary to hydration and blood transfusion -today's potassium 3.0-40 mEq K rider ordered, will re-evaluate potassium. 2. Syncope, acute, present on admission - highly suspect orthostatic syncope secondary to anemia. -fall protocol in place, orthostatics Q shift. - will monitor with telemetry, TTE as below though cardiac etiology is less likely. Monitor does show some episodes of sinus bradycardia, with primary block. - patient did have a syncopal episode upon arrival to the floor similar to those at home. will check orthostatics qShift. 3. Possible acute heart failure -patient reports fatigue, orthopnea, lower extremity edema over the past few months. She did have a recent stress test which showed a normal ejection fraction, but this was prior to when her symptoms seemingly started. These may be related to her anemia, however her proBNP is quite elevated and some of her elevated transaminase levels may be indicative of a congestive hepatopathy. This would further explain the imaging findings of gallbladder wall thickening, mild ascites, and small bilateral pleural effusions that were noted on CT of her cervical spine. -s/p 20 mg IV lasix with net negative 1.3L thus far. Some improvement. Further lasix doses depending on TTE today. - TTE pending. 4. Hypertension, chronic - will hold other than lasix in setting of likely orthostatic hypotension given blood loss anemia, check orthostatics Qshift 5. Hyperlipidemia, chronic - will hold home meds temporarily. 6. Chronic back pain - can continue home pain medications. 7. Depression, and anxiety, chronic - continue home medications. 8. New abdominal ascites, pleural effusion, and gallbladder wall thickening. - as above suspect possible acute heart failure which could help to explain th julio césar imaging findings. -appears stable, possible patient's baseline patient may also be constipated w ill provide bowel regimen. 9. transaminitis, acute, present on admission -Upon admit AST 179/ALT 117, alk-phos 56. Today's a.m. AST 89/ALT 96- improving - suspect heart failure as noted above, with possible contributing factor alcohol use. Hepatitis panel negative. Recommend patient be discharged tomorrow if H&H remains stable, potassium resolves, patient passes stool and can tolerate diet without any difficulty. -PT/OT evaluation ordered today Code: Full, surrogate decision maker is the patient's spouse. Dispo: Admitted under inpatient status as her stay is expected to exceed 2 midnights DVT: SCDs given likely acute blood loss anemia Quality VTE Deep Vein Thrombosis/Pulmonary Embolism Present on Admission: No
--- NOTE | 2021-03-15 12:51 | PC.NURSE ---
Patient alert, oriented, denies pain, nausea and dizziness. Per KRISTI Worthy ok to give just one 30MEQ krider and 20MEQ PO potassium. Patient anticipating discharge later this afternoon.
[2021-03-15 13:03] LABS: HEMOLYSIS < 15 (0-50); Potassium 3.4 mmol/L (3.4-5.1)
[2021-03-15] MEDS: POTASSIUM CHLORIDE 20 MEQ TAB 40 MEQ PO (13:38)
--- NOTE | 2021-03-15 13:47 | PC.NURSE ---
Addendum entered by Sonya Lin R.N. 03/15/21 15:25: Patient left the hospital without discharge teaching, this RN was downstairs in the ER at a trauma. Phoned patient and left a message for patient to call back and get discharge teaching and answer any questions she may have. Peripheral IV was removed earlier. Original Note: PAtients bag of home medications given back to patient at discharge.
--- NOTE | 2021-03-15 13:52 | P.DS_ITS ---
History of Present Illness History of Present Illness Date Patient Seen: 03/15/21 Time Patient Seen: 13:52 Chief complaint: 5 episodes of falling yesterday Narrative: Yamilet Finch is a 60-year-old female with a past medical history of hypertension, hyperlipidemia, chronic back pain, anxiety, and depression who presented to the emergency room after multiple syncopal episodes at home. She states that when she stands up she gets quite dizzy and lightheaded and has fallen a number of times hitting her head with brief losses of consciousness. She states her 1st episode was about a week ago, and this has gotten significantly worse over the last couple of days. She also has extreme fatigue, early satiety, and occasional lower extremity edema over the past couple of months. She was previously taking NSAIDs for her back pain, then had a couple of dark stools, so she stopped her NSAID therapy but did not seek medical care at that time. She endorses a couple of alcoholic drinks a week currently. Denies any hematochezia, or hematemesis. She denies any nausea, or vomiting. She does have some mild epigastric pain. She does get dyspneic lying flat, but relates this to her chronic back pain and a slipped disc in her cervical spine. She reports prior colonoscopy a couple of years ago at [facility]. She denies any upper endoscopies previously although her PMH notes a stomach ulcer. She had a stress test within the past year for severe hypertension to her primary care provider, which was deemed low risk for any cardiac ischemia. In the emergency room, the patient was mildly hypertensive, but the remainder of her vital signs were unremarkable. Initial laboratory evaluation reveals a hemoglobin of 5.8, hematocrit 19.3, platelet count of 140. Reticulocyte count was 2.4%, hypochromasia and anisocytosis is noted. Chemistry panel was notable for an AST 196, up from normal over a year ago, ALT of 99 with a normal T bili. LDH was elevated at 1072. Ammonia was less than 9. Troponin was negative. ProBNP was elevated at 4180. Procalcitonin is negative. Alcohol level was negative. COVID-19 testing was negative. Iron panel done before transfusion shows an iron level of 12, TIBC of 549, % saturation of 2%, but a transferrin of 578. She had multiple imaging studies performed in the emergency room, including head CT which was unremarkable. Chest x-ray which showed no acute pathologies, but may show some vascular congestion based on my interpretation, this is somewhat limited due to her body habitus. CT of her cervical spine did not show any acute fractures, but does note trace bilateral pleural fluid. Abdominal ult rasound was performed as well which showed gallbladder wall thickening and a small amount of ascites. Patient was admitted to Medicine for further evaluation of severe symptomatic anemia with syncope. Upon arrival to the floor, she was attempting to move from the wheelchair to her bed, but when st anding had another syncopal episode and was unresponsive for a couple of minutes before returning to baseline. She was incontinent of urine. At the time of my evaluation she had returned to her baseline, was finishing her 2nd unit of blood, and was starting to feel a bit better. Discharge Providers Provider Date of admission: 03/12/21 13:43 Discharge Date: 03/15/21 Primary care physician: Johanne Conte MD Consults: 03/13/21 08:00 Consult to General Surgery Routine Comment: Consulting Provider: Valorie Beckett Reason for consultation: concern for upper GI bleeding Has provider been notified: Yes 03/14/21 11:15 Consult to Occupational Therapy Evaluate & Treat Comment: Physician Instructions: Evaluate and treat Consult to Physical Therapy Evaluate & Treat Comment: Physician Instructions: Evaluate and Treat 03/14/21 12:39 Consult to Physical Therapy Evaluate & Treat Comment: Physician Instructions: Evaluate and Treat Discharge provider: Juan Carlos Rosas MD Summary Hospital Course Discharge Diagnosis: 1. Acute blood loss anemia, presumed secondary to upper GI bleeding, present on admission 2. Hypokalemia, acute, not present on admission likely secondary to hydration and blood transfusion 2. Syncope, acute, present on admission 4. Hypertension, chronic 5. Hyperlipidemia, chronic 6. Chronic back pain 7. Depression, and anxiety, chronic 8. New abdominal ascites, pleural effusion, and gallbladder wall thickening. 9. transaminitis, acute, present on admission 10. Diastolic congestive heart failure Hospital Course: Yamilet Finch is a 60-year-old female with a past medical history of hypertension, hyperlipidemia, chronic back pain, anxiety, and depression who presented to the emergency room after multiple syncopal episodes at home. She is admitted with symptomatic anemia and resulting syncope, with possible acute heart failure based on admission laboratory findings and clinical history. 1. Acute blood loss anemia, presumed secondary to upper GI bleeding, present on admission -suspect upper GI bleeding given reported melanotic appearing stools a few weeks ago and history of NSAID use. She was treated with IV Protonix 40 mg twice a day and will be continued on her home dose of 40 mg oral daily. -Hg from 5.8 > 2 U PRBC > 7.9, 03/13/21 Hgb:7.6. Today Hgb 8.4, stable for 2 days. -last known hemoglobin was over a year ago and was 11.4. -iron studies ordered showing low iron 26 -last colonoscopy and EGD last year in [place] apparently showing ulcer disease -Dr. Beckett of general surgery consulted, no plans for endoscopy due to relatively recent confirmation of ulcers. Recommended patient follow-up with her fiber technologist at [facility]. -begin on daily ferrous sulfate and vitamin-C and follow-up CBC with Dr. Conte soon. -LDH elevated but non-specific. No schistocytes are noted on CBC. Haptoglobin 110. Hemolysis ruled out. 2. Hypokalemia, acute, not present on admission likely secondary to diuresis of transfusion fluid overload -today's potassium 3.1 so additional IV potassium of 30 meq and oral 20 mEq given with a resultant potassium level of 3.4, followed by 40 mEq oral and then discharged home with follow-up with Dr. Conte for electrolyte re-evaluation this week. 2. Syncope, acute, present on admission - highly suspect orthostatic syncope secondary to anemia. - passed PT eval for home safety. - patient did have one syncopal episode upon arrival to the floor similar to those at home. 4. Hypertension, chronic -resume home medications of metoprolol and losartan at discharge. 5. Hyperlipidemia, chronic -resume fenofibrate 6. Chronic back pain -resume pregabalin 7. Depression, and anxiety, chronic -resume escitalopram 8. New abdominal ascites, pleural effusion, and gallbladder wall thickening. - as above suspect possible acute heart failure which could help to explain these imaging findings. -appears stable, possible patient's baseline patient may also be constipated will provide bowel regimen. -follow-up with primary care for possible repeat imaging. 9. transaminitis, acute, present on admission -Upon admit AST 179/ALT 117, alk-phos 56. Than AST 89/ALT 96- improving - suspect heart failure as noted above, with possible contributing factor alcohol use. Hepatitis panel negative. 10. Diastolic congestive heart failure -patient reports fatigue, orthopnea, lower extremity edema over the past few months. She did have a recent stress test which showed a normal ejection fraction, but this was prior to when her symptoms seemingly started. These may be related to her anemia, however her proBNP is quite elevated and some of her elevated transaminase levels may be indicative of a congestive hepatopathy. This would further explain the imaging findings of gallbladder wall thickening, mild ascites, and small bilateral pleural effusions that were noted on CT of her cervical spine. -s/p 20 mg IV lasix with net negative 1.3L thus far. Some improvement. -normal ejection fraction and left ventricular function on echocardiogram, making the acute worsening of heart failure likely due to aggressive hydration/transfusion. Code: Full, surrogate decision maker is the patient's spouse. Total time today of 50 minutes Exam Vital Signs (past 8 hours): - 03/15/21 06:00 03/15/21 08:00 03/15/21 12:00 Temperature 98.0 F 98.5 F Pulse Rate 71 72 Pulse Rate [Orthostatic Lying] 71 Pulse Rate [Orthostatic Sitting] 83 Pulse Rate [Orthostatic Standing] 75 Respiratory Rate 18 17 Blood Pressure 141/77 H 136/80 Blood Pressure [Orthostatic Lying] 141/77 H Blood Pressure [Orthostatic Sitting] 140/70 Blood Pressure [Orthostatic Standing] 140/84 Pulse Oximetry 97 94 100 Oxygen Delivery Method Room Air Oxygen Flow Rate 0 Narrative Exam Narrative: Alert and orient x3, no apparent distress. She looks quite overweight, but states she has been walking with physical therapy. She tells me that she has a partner and several friends who she lives with, who are in good health and can watch out for her. Heart is regular rate and rhythm without murmur. Lungs are clear to auscultation bilaterally. Extremities have no ankle edema. Objective Labs Result Diagrams: 03/15/21 05:18 03/15/21 12:45 Labs: Laboratory Results - last 24 hr 03/15/21 03/15/21 03/15/21 05:18 05:18 12:45 WBC 4.9 RBC 3.16 L Hgb 8.4 L Hct 26.2 L MCV 83.2 MCH 26.6 MCHC 32.0 RDW 25.0 H Plt Count 194 Neut % (Auto) 67.3 Lymph % (Auto) 15.0 L Gonzales % (Auto) 12.7 Eos % (Auto) 4.0 Baso % (Auto) 1.0 Neut # (Auto) 3300 Lymph # (Auto) 700 L Gonzales # (Auto) 600 Eos # (Auto) 200 Baso # (Auto) 0 RBC Morphology See below Polychromasia 1+ H Hypochromasia 1+ H Anisocytosis 3+ H Sodium 138 Potassium 3.1 L 3.4 Chloride 104 Carbon Dioxide 28 BUN 7 Creatinine 0.65 Estimated GFR > 60.0 BUN/Creatinine Ratio 10.8 Glucose 100 Calcium 9.2 Magnesium 2.0 Total Bilirubin 0.4 Conjugated Bilirubin 0.0 Unconjugated Bilirubin 0.4 AST 50 H ALT 70 H Alkaline Phosphatase 54 Total Protein 6.1 L Albumin 3.6 Globulin 2.5 Albumin/Globulin Ratio 1.4 PFSH Medical History Back pain Chronic diarrhea Depression Easy bruisability Facial lesion Failed cervical fusion (~2007) Fecal incontinence Hearing loss History of UTI HTN (hypertension) Numbness and tingling Pneumonia RLS (restless legs syndrome) Sinus infection (~2007) Stomach ulcer Strain of left groin Tinnitus of right ear Trauma in childhood Trigger thumb, left thumb Surgical History History of ankle surgery (~2003) Hx of colonoscopy Hx of laparoscopic gastric banding (~2004) Family History Mother Cancer Social History household members: significant other Smoking Status: Former smoker alcohol intake: current Discharge Plan Discharge Plan Patient Disposition: Home Nursing Discharge Comment: Follow up with Dr. Conte in one week Discharge orders & Medications Prescriptions: New ascorbic acid (vitamin C) [Vitamin C] 500 mg tablet 500 mg PO DAILY Qty: 30 RF: 0 ferrous sulfate 325 mg (65 mg iron) tablet 325 mg PO DAILY Qty: 30 RF: 0 Continued losartan 100 mg tablet 100 mg PO DAILY RF: 0 metoprolol succinate 100 mg tablet extended release 24 hr 50 mg PO DAILY RF: 0 pantoprazole 40 mg tablet,delayed release (DR/EC) 40 mg PO DAILY RF: 0 pregabalin 75 mg capsule 75 mg PO BID RF: 0 mecobalamin (vitamin B12) 1,000 mcg tablet,chewable 1,000 mcg PO DAILY RF: 0 folic acid 400 mcg tablet 0.4 mg PO DAILY RF: 0 cholecalciferol (vitamin D3) 10 mcg (400 unit) capsule 10 mcg PO DAILY RF: 0 fenofibrate 160 mg tablet 160 mg PO DAILY RF: 0 amlodipine 5 mg tablet 5 mg PO DAILY RF: 0 escitalopram oxalate 10 mg tablet 20 mg PO DAILY RF: 0 acetaminophen 325 MG tablet 1,000 mg PO BID PRN (Reason: pain) Qty: 0 RF: 0 lorazepam 0.5 mg tablet 0.25 mg PO BID PRN (Reason: panic or severe anxiety) RF: 0 Follow up/Referrals: Johanne Conte MD [Primary Care Provider] - Diet/Activity/Treatments Diet: Low-sodium Visit Report/Discharge Packet Instructions: Gastrointestinal Bleeding Discharge Data Primary Care Provider: Johanne Conte Quality VTE Deep Vein Thrombosis/Pulmonary Embolism Present on Admission: No
--- NOTE | 2021-03-15 16:33 | PC.NURSE ---
Discharge Note Patient left floor prior to change of shift wihtout discharge packet. Day shift nurse attempted to call patient with no answer and left a message. This RN called patient again to remind patient to pick up attendant prescriptions from [facility] in [place]. No answer from patient, this RN left a message with call back number.
== END 2021-03-15 15:00 | disposition home or self-care (01) | DRG 811 ==
LOC: ED 13:40 → AC 14:06
PROVIDERS: Family Medicine; Nurse Practitioner Family; Admitting Provider Internal Medicine; Emergency Provider Emergency Medicine; PCP Internal Medicine; Referring Provider Emergency Medicine; Visit Provider Internal Medicine
DX: D62 Acute posthemorrhagic anemia (principal); I50.31 Acute diastolic (congestive) heart failure; K92.1 Melena; R55 Syncope and collapse; E87.6 Hypokalemia; I11.0 Hypertensive heart disease with heart failure; E78.5 Hyperlipidemia, unspecified; F41.9 Anxiety disorder, unspecified; G89.29 Other chronic pain; R74.01 Elevation of levels of liver transaminase levels; R29.6 Repeated falls; F32.9 Major depressive disorder, single episode, unspecified; W18.30XA Fall on same level, unspecified, initial encounter; W22.8XXA Striking against or struck by other objects, initial encounter; Z87.891 Personal history of nicotine dependence; Z20.822 Contact with and (suspected) exposure to COVID-19; Z98.84 Bariatric surgery status
CPT/HCPCS: 36415; 36430; 70450; 71101; 72125; 76700; 80048; 80053; 80061; 80076; 80305; 80320; 82140; 82550; 82553; 83010; 83036; 83540; 83550; 83605; 83615; 83690; 83735; 83880; 84132; 84145; 84443; 84484; 85014; 85018; 85025; 85045; 85651; 86140; 86704; 86706; 86803; 86850; 86900; 86901; 87340; 87635; 93005; 93010; 93306; 96361; 96374; 97116; 97161; 97165; 97530; 99232; 99285; C9803; P9016; C9113; J1940; J2060; J3480

== ENCOUNTER 2022-06-13 03:40 | Emergency (ER) | payer MEDICARE, OTHER, SELFPAY ==
[2021-03-12 17:28] VITALS: BMI 28.1
[2022-06-13] VITALS (20 sets, daily range): BP systolic 97–168; BP diastolic 55–89; PULSE 64–100; RESP 18–20; TEMP 36.9; O2SAT 92–100
--- NOTE | 2022-06-13 04:19 | ED.GENADULT ---
HPI - General Adult <Lauryn Wallace MD - Last Filed: 06/13/22 18:22> General Chief complaint: Psychiatric Symptoms Stated complaint: BACK PAIN Time Seen by Provider: 06/13/22 04:18 History of Present Illness HPI narrative: 62-year-old woman brought in by her complaining of multiple symptoms in the a very dramatic labile way with pressured speech and dramatic affect of behavior. Apparently she has bilateral sciatica left greater than right and has had prior back surgeries. Nobody understands her pain and the stress that it is causing. She recently was diagnosed with breast cancer and has lost her appetite. For the last 3 days she has felt that she has been on ?the edge of the seizure?. She is frustrated that Dr. Parada, her oncologist is declined filling her anxiety medications. She states that for her sciatic pain she takes Tylenol Lyrica escitalopram but no additional pain medications. She states that she has been drinking but ?normal more than usual?. Corroborating history from her indicates that she has not slept much in the last 3 days with increasing pressured speech, grandiose ideas and labile affect. She also complains of no appetite and the unable to be the last 3 days. 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 with tinnitus on both sides that seems to be getting worse over the last number of months Related Data Home Medications Medication Instructions Recorded Confirmed acetaminophen 325 mg tablet 1,000 mg PO BID PRN pain ##0 03/20/10 04/24/21 losartan 100 mg tablet 100 mg PO DAILY 11/13/19 04/24/21 escitalopram oxalate 10 mg tablet 20 mg PO DAILY 03/19/20 10/16/21 pantoprazole 40 mg tablet,delayed 40 mg PO DAILY 05/19/20 04/24/21 release metoprolol succinate 100 mg 50 mg PO DAILY 07/23/20 10/16/21 tablet,extended release 24 hr pregabalin 75 mg capsule 75 mg PO BID 09/23/20 10/16/21 amlodipine 5 mg tablet 5 mg PO DAILY 02/17/21 04/24/21 cholecalciferol (vitamin D3) 10 10 mcg PO DAILY 02/17/21 04/24/21 mcg (400 unit) capsule fenofibrate 160 mg tablet 160 mg PO DAILY 02/17/21 04/24/21 folic acid 400 mcg tablet 0.4 mg PO DAILY 02/17/21 04/24/21 mecobalamin (vitamin B12) 1,000 1,000 mcg PO DAILY 02/17/21 04/24/21 mcg chewable tablet dexamethasone 4 mg tablet 4 mg PO DAILY 10/16/21 10/16/21 ondansetron 8 mg disintegrating 8 mg PO DAILY PRN 10/16/21 10/16/21 tablet prochlorperazine maleate 10 mg 10 mg PO DAILY PRN nausea and 10/16/21 10/16/21 tablet vomiting Previous Rx's Medication Instructions Recorded ascorbic acid (vitamin C) 500 mg 500 mg PO DAILY #30 tabs 03/15/21 tablet (Vitamin C) ferrous sulfate 325 mg (65 mg 325 mg PO DAILY #30 tabs 03/15/21 iron) tablet lorazepam 0.5 mg tablet 0.5 mg PO BID PRN panic or severe 10/16/21 anxiety #15 tabs hydroxyzine pamoate 50 mg capsule 50 mg PO BEDTIME PRN sleep #7 caps 06/13/22 (Vistaril) Allergies Allergy/AdvReac Type Severity Reaction Status Date / Time No Known Drug Allergies Allergy Verified 04/24/21 09:04 Review of Systems <Lauryn Wallace MD - Last Filed: 06/13/22 18:22> Review of Systems Narrative: Due to her agitated psychiatric state answers to review of system questions are unreliable ROS Unobtainable: Unobtainable due to mental status/LOC Patient History <Lauryn Wallace MD - Last Filed: 06/13/22 18:22> Medical History Back pain Chronic diarrhea Depression Easy bruisability Facial lesion Failed cervical fusion (~2007) Fecal incontinence Hearing loss History of UTI HTN (hypertension) Numbness and tingling Pneumonia RLS (restless legs syndrome) Sinus infection (~2007) Stomach ulcer Strain of left groin Tinnitus of right ear Trauma in childhood Trigger thumb, left thumb Surgical History History of ankle surgery (~2003) Hx of colonoscopy Hx of laparoscopic gastric banding (~2004) Family History Mother Cancer Social History household members: significant other Smoking Status: Former smoker alcohol intake: current Smoking Status: Former smoker alcohol intake frequency: a few times a week Substance Use Type: marijuana Exam <Lauryn Wallace MD - Last Filed: 06/13/22 18:22> Initial Vital Signs Initial Vital Signs: Vital Signs Temperature 98.4 F 06/13/22 04:22 Pulse Rate 100 H 06/13/22 04:22 Respiratory Rate 18 06/13/22 04:22 Blood Pressure 168/89 H 06/13/22 04:22 Pulse Oximetry 98 06/13/22 04:22 Oxygen Delivery Method 06/13/22 04:22 General: Healthy appearing, in no acute distress. Tangential, pressured and labile HEENT: Moist mucous membranes, normal sclera with reactive pupils, Neck: No JVD, supple Respiratory: Lungs are clear to auscultation, no wheezing no rales no rhonchi. Full and symmetrical air movement Cardiac: Regular rate and rhythm no murmurs no bruits Abdomen: Soft, nontender, good bowel tones, no flank pain Skin: Warm and dry, no rashes Neurologic: Grossly neurologically intact with no obvious asymmetries or abnormalities. She is not hyperreflexic Extremities: No trauma, well perfused. Left leg has slightly more pain behaviors but she is able to do straight leg lift bilaterally. Psych: Non focused, pressured, labile question developing paranoia as well as delusional thinking. Not appearing to respond to internal stimuli at this time <Rodo Cooper MD - Last Filed: 06/26/22 12:25> Initial Vital Signs Initial Vital Signs: Vital Signs Temperature 98.4 F 06/13/22 04:22 Pulse Rate 100 H 06/13/22 04:22 Respiratory Rate 18 06/13/22 04:22 Blood Pressure 168/89 H 06/13/22 04:22 Pulse Oximetry 98 06/13/22 04:22 Oxygen Delivery Method 06/13/22 04:22 Course <Lauryn Wallace MD - Last Filed: 06/13/22 18:22> Orders Ordered: Discontinued Medications Sodium Chloride (Normal Saline 0.9%) 1,000 mls @ 1,000 mls/hr IV BOLUS ONE Stop: 06/13/22 11:49 Last Infusion: 06/13/22 12:16 Dose: 0 mls/hr Documented By: Admin: 06/13/22 10:54 Dose: 1,000 mls/hr Documented By: BRENT Lorazepam (Lorazepam 0.5 Mg Tablet) 2 mg PO NOW ONE Stop: 06/13/22 04:32 Last Admin: 06/13/22 04:57 Dose: 2 mg Documented By: TAHIR Lorazepam (Lorazepam 0.5 Mg Tablet) 2 mg PO NOW ONE Stop: 06/13/22 05:34 Last Admin: 06/13/22 05:39 Dose: 2 mg Documented By: JOSE Olanzapine (Olanzapine Odt 10 Mg Tab) 10 mg PO NOW ONE Stop: 06/13/22 04:32 Last Admin: 06/13/22 04:57 Dose: 10 mg Documented By: TAHIR Olanzapine (Olanzapine Odt 10 Mg Tab) 10 mg PO NOW ONE Stop: 06/13/22 05:34 Last Admin: 06/13/22 05:40 Dose: 10 mg Documented By: JOSE Vital Signs Vital signs: Vital Signs - 8 hr 06/13/22 10:30 06/13/22 10:31 06/13/22 10:31 Pulse Rate 79 79 Respiratory Rate Blood Pressure 102/60 Pulse Oximetry 96 94 Oxygen Delivery Method 06/13/22 12:25 06/13/22 11:00 06/13/22 11:00 Pulse Rate 64 73 Respiratory Rate 18 Blood Pressure 104/58 L 97/62 Pulse Oximetry 97 95 Oxygen Delivery Method Nasal Cannula 06/13/22 11:30 06/13/22 11:30 06/13/22 11:45 Pulse Rate 76 Respiratory Rate 20 Blood Pressure 99/55 L 104/58 L Pulse Oximetry 98 Oxygen Delivery Method 06/13/22 11:45 Pulse Rate 67 Respiratory Rate Blood Pressure Pulse Oximetry 95 Oxygen Delivery Method <Rodo Cooper MD - Last Filed: 06/26/22 12:25> Course Course Narrative: June 13, 2022 at 7:[address] Toribio. Patient will need social work evaluation. Urinalysis and CT scan head results are pending. Patient has had good results with Zyprexa and Ativan here. Orders Ordered: Discontinued Medications Sodium Chloride (Normal Saline 0.9%) 1,000 mls @ 1,000 mls/hr IV BOLUS ONE Stop: 06/13/22 11:49 Last Infusion: 06/13/22 12:16 Dose: 0 mls/hr Documented By: Admin: 06/13/22 10:54 Dose: 1,000 mls/hr Documented By: BRENT Lorazepam (Lorazepam 0.5 Mg Tablet) 2 mg PO NOW ONE Stop: 06/13/22 04:32 Last Admin: 06/13/22 04:57 Dose: 2 mg Documented By: TAHIR Lorazepam (Lorazepam 0.5 Mg Tablet) 2 mg PO NOW ONE Stop: 06/13/22 05:34 Last Admin: 06/13/22 05:39 Dose: 2 mg Documented By: JOSE Olanzapine (Olanzapine Odt 10 Mg Tab) 10 mg PO NOW ONE Stop: 06/13/22 04:32 Last Admin: 06/13/22 04:57 Dose: 10 mg Documented By: TAHIR Olanzapine (Olanzapine Odt 10 Mg Tab) 10 mg PO NOW ONE Stop: 06/13/22 05:34 Last Admin: 06/13/22 05:40 Dose: 10 mg Documented By: JOSE Reevaluation(s) Reevaluation #1: Spoke with boyfriend. At this time awaiting for social Work evaluation. Patient is sleeping. Time: 07:50 Reevaluation #2: Patient feels much better. Awoke patient and not anxious not manic. No pressured speech. No hallucinations. Pain controlled. Patient and understand we do not have case packer or social work services today. However feeling much better and she has appointment this Tuesday with with her family doctor. They do desire discharge home after normal saline bolus. I spoke with him regarding sodium levels likely not related to patient's symptoms but needs to be recheck with family doctor this Tuesday. No seizure symptoms. Time: 10:53 Vital Signs Vital signs: Vital Signs - 8 hr 06/13/22 10:30 06/13/22 10:31 06/13/22 10:31 Pulse Rate 79 79 Respiratory Rate Blood Pressure 102/60 Pulse Oximetry 96 94 Oxygen Delivery Method 06/13/22 12:25 06/13/22 11:00 06/13/22 11:00 Pulse Rate 64 73 Respiratory Rate 18 Blood Pressure 104/58 L 97/62 Pulse Oximetry 97 95 Oxygen Delivery Method Nasal Cannula 06/13/22 11:30 06/13/22 11:30 06/13/22 11:45 Pulse Rate 76 Respiratory Rate 20 Blood Pressure 99/55 L 104/58 L Pulse Oximetry 98 Oxygen Delivery Method 06/13/22 11:45 Pulse Rate 67 Respiratory Rate Blood Pressure Pulse Oximetry 95 Oxygen Delivery Method Medical Decision Making <Lauryn Wallace MD - Last Filed: 06/13/22 18:22> Lab Data Result diagrams: 06/13/22 04:45 06/13/22 04:45 Labs: Lab Results 06/13/22 06/13/22 06/13/22 Range/Units 04:45 04:45 04:45 WBC 4.8 (4.5-11.0) X10^3/uL RBC 3.61 L (4.0-5.2) X10^6/uL Hgb 11.2 L (12.0-16.0) g/dL Hct 32.2 L (36-46) % MCV 89.3 (80-100) fL MCH 31.1 (26-34) PG MCHC 34.8 (30-36) % RDW 14.6 (11.6-14.8) % Plt Count 209 (150-400) X10^3/uL Neut % (Auto) 70.4 (50-75) % Lymph % (Auto) 12.8 L (25-40) % [place] % (Auto) 11.9 (3-14) % Eos % (Auto) 4.1 H (2-4) % Baso % (Auto) 0.8 (0-2) % Neut # (Auto) 3400 (1184-3392) /uL Lymph # (Auto) 600 L (6263-4027) /uL [place] # (Auto) 600 (0-900) /uL Eos # (Auto) 200 (0-450) /uL Baso # (Auto) 0 (0-100) /uL Sodium 125 L (137-145) mmol/L Potassium 4.0 (3.4-5.1) mmol/L Chloride 92 L (98-107) mmol/L Carbon Dioxide 21 L (22-32) mmol/L BUN 8 (7-17) mg/dL Creatinine 0.78 (0.52-1.04) mg/dL Estimated GFR > 60 (>60) mL/min BUN/Creatinine Ratio 10.3 (6-22) Glucose 90 (80-110) mg/dL Calcium 9.2 (8.4-10.2) mg/dL Total Bilirubin 0.9 (0.2-1.3) mg/dL AST 30 (14-36) IU/L ALT 13 (<35) IU/L Alkaline Phosphatase 69 (38-126) U/L Total Protein 7.2 (6.3-8.2) g/dL Albumin 4.9 (3.5-5.0) g/dL Globulin 2.3 (1.7-4.1) g/dL Albumin/Globulin Ratio 2.1 (1.0-2.8) Lipase 145 (23-300) U/L TSH (0.47-4.68) uIU/mL Urine Color Urine Appearance Urine pH (4.5-8.0) Ur Specific [place] (1.000-1.035) Urine Protein (Negative) Urine Glucose (UA) (Negative) g/dL Urine Ketones (NEGATIVE) Urine Occult Blood (Negative) Urine Nitrate (Negative) Urine Bilirubin (NEGATIVE) Urine Urobilinogen (0.2) E.U./dL Ur Leukocyte Esterase (NEGATIVE) Urine RBC (0-5/HPF) Urine WBC (0-5/HPF) Ur Squamous Epith Cells (0-5/HPF) Urine Bacteria (None) Ur Culture Indicated? U Opiates 300ng/mL cut (Negative) Ur Oxycodone Screen (Negative) Urine Methadone Screen (Negative) Ur Barbiturates Screen (Negative) U Tricyclic Antidepress (Negative) Ur Phencyclidine Scrn (Negative) Ur Amphetamines Screen (Negative) U Methamphetamines Scrn (Negative) Ur MDMA Scrn (Ecstasy) (Negative) U Benzodiazepines Scrn (Negative) Urine Cocaine Screen (Negative) U Marijuana (THC) Screen (Negative) Ethyl Alcohol < 10 ( - 10) mg/dL SARS-CoV-2 (PCR) (Negative) 06/13/22 06/13/22 06/13/22 Range/Units 04:45 08:10 08:10 WBC (4.5-11.0) X10^3/uL RBC (4.0-5.2) X10^6/uL Hgb (12.0-16.0) g/dL Hct (36-46) % MCV (80-100) fL MCH (26-34) PG MCHC (30-36) % RDW (11.6-14.8) % Plt Count (150-400) X10^3/uL Neut % (Auto) (50-75) % Lymph % (Auto) (25-40) % [place] % (Auto) (3-14) % Eos % (Auto) (2-4) % Baso % (Auto) (0-2) % Neut # (Auto) (4726-6957) /uL Lymph # (Auto) (5277-5719) /uL [place] # (Auto) (0-900) /uL Eos # (Auto) (0-450) /uL Baso # (Auto) (0-100) /uL Sodium (137-145) mmol/L Potassium (3.4-5.1) mmol/L Chloride (98-107) mmol/L Carbon Dioxide (22-32) mmol/L BUN (7-17) mg/dL Creatinine (0.52-1.04) mg/dL Estimated GFR (>60) mL/min BUN/Creatinine Ratio (6-22) Glucose (80-110) mg/dL Calcium (8.4-10.2) mg/dL Total Bilirubin (0.2-1.3) mg/dL AST (14-36) IU/L ALT (<35) IU/L Alkaline Phosphatase (38-126) U/L Total Protein (6.3-8.2) g/dL Albumin (3.5-5.0) g/dL Globulin (1.7-4.1) g/dL Albumin/Globulin Ratio (1.0-2.8) Lipase (23-300) U/L TSH 1.29 (0.47-4.68) uIU/mL Urine Color Yellow Urine Appearance Clear Urine pH 5.0 (4.5-8.0) Ur Specific [place] <=1.005 (1.000-1.035) Urine Protein Negative (Negative) Urine Glucose (UA) Negative (Negative) g/dL Urine Ketones Negative (NEGATIVE) Urine Occult Blood Negative (Negative) Urine Nitrate Negative (Negative) Urine Bilirubin Negative (NEGATIVE) Urine Urobilinogen 0.2 (0.2) E.U./dL Ur Leukocyte Esterase Negative (NEGATIVE) Urine RBC None seen (0-5/HPF) Urine WBC None seen (0-5/HPF) Ur Squamous Epith Cells 0-1 /hpf (0-5/HPF) Urine Bacteria Occasional (0-1) (None) Ur Culture Indicated? Cult not indicated U Opiates 300ng/mL cut Negative (Negative) Ur Oxycodone Screen Negative (Negative) Urine Methadone Screen Negative (Negative) Ur Barbiturates Screen Negative (Negative) U Tricyclic Antidepress Negative (Negative) Ur Phencyclidine Scrn Negative (Negative) Ur Amphetamines Screen Negative (Negative) U Methamphetamines Scrn Negative (Negative) Ur MDMA Scrn (Ecstasy) Negative (Negative) U Benzodiazepines Scrn Negative (Negative) Urine Cocaine Screen Negative (Negative) U Marijuana (THC) Screen Positive H (Negative) Ethyl Alcohol ( - 10) mg/dL SARS-CoV-2 (PCR) (Negative) 06/13/22 Range/Units 08:20 WBC (4.5-11.0) X10^3/uL RBC (4.0-5.2) X10^6/uL Hgb (12.0-16.0) g/dL Hct (36-46) % MCV (80-100) fL MCH (26-34) PG MCHC (30-36) % RDW (11.6-14.8) % Plt Count (150-400) X10^3/uL Neut % (Auto) (50-75) % Lymph % (Auto) (25-40) % [place] % (Auto) (3-14) % Eos % (Auto) (2-4) % Baso % (Auto) (0-2) % Neut # (Auto) (6727-8416) /uL Lymph # (Auto) (9025-1475) /uL [place] # (Auto) (0-900) /uL Eos # (Auto) (0-450) /uL Baso # (Auto) (0-100) /uL Sodium (137-145) mmol/L Potassium (3.4-5.1) mmol/L Chloride (98-107) mmol/L Carbon Dioxide (22-32) mmol/L BUN (7-17) mg/dL Creatinine (0.52-1.04) mg/dL Estimated GFR (>60) mL/min BUN/Creatinine Ratio (6-22) Glucose (80-110) mg/dL Calcium (8.4-10.2) mg/dL Total Bilirubin (0.2-1.3) mg/dL AST (14-36) IU/L ALT (<35) IU/L Alkaline Phosphatase (38-126) U/L Total Protein (6.3-8.2) g/dL Albumin (3.5-5.0) g/dL Globulin (1.7-4.1) g/dL Albumin/Globulin Ratio (1.0-2.8) Lipase (23-300) U/L TSH (0.47-4.68) uIU/mL Urine Color Urine Appearance Urine pH (4.5-8.0) Ur Specific [place] (1.000-1.035) Urine Protein (Negative) Urine Glucose (UA) (Negative) g/dL Urine Ketones (NEGATIVE) Urine Occult Blood (Negative) Urine Nitrate (Negative) Urine Bilirubin (NEGATIVE) Urine Urobilinogen (0.2) E.U./dL Ur Leukocyte Esterase (NEGATIVE) Urine RBC (0-5/HPF) Urine WBC (0-5/HPF) Ur Squamous Epith Cells (0-5/HPF) Urine Bacteria (None) Ur Culture Indicated? U Opiates 300ng/mL cut (Negative) Ur Oxycodone Screen (Negative) Urine Methadone Screen (Negative) Ur Barbiturates Screen (Negative) U Tricyclic Antidepress (Negative) Ur Phencyclidine Scrn (Negative) Ur Amphetamines Screen (Negative) U Methamphetamines Scrn (Negative) Ur MDMA Scrn (Ecstasy) (Negative) U Benzodiazepines Scrn (Negative) Urine Cocaine Screen (Negative) U Marijuana (THC) Screen (Negative) Ethyl Alcohol ( - 10) mg/dL SARS-CoV-2 (PCR) Negative (Negative) MDM Narrative Medical decision making narrative: 62-year-old woman with history of bipolar disorder, chronic back pain with sciatica and recent breast cancer diagnosis presents with 3 days of insomnia, loss of appetite and increasing labile mood. Alcohol level today is unremarkable, she is clearly manic and calmed somewhat with initial dose of oral 2 mg of Ativan and 10 mg of Zyprexa. As labs are returning it is noted that she is hyponatremic at 125. On re-examination she is cough being slightly and does not have quite as dramatic flare but still is clearly manic and not able to sleep. She very much is willing to try additional medications to sleep recognizing that sleep is required for her back to improve. Will give her an additional dose of both apraxia and Ativan. My goal would be for her to sleep for a number of hours and meet with social work to see what options might be available for her Med list is reviewed with her. She takes dexamethasone only following chemotherapy and her last chemotherapy was in November. This is not a steroid induced psychosis. She does not take any diuretic that might contribute to the hyponatremia. She states that she tries to drink a lot of water because she has been unable to eat however her states that and is not in fact the case. The last CT of her head was in February of last year. Given her altered mental status, hyponatremia in the setting of recently diagnosed cancer of possibility of metastatic brain lesions is entertained. Will obtain a CT scan of her head to rule this out. <Rodo Cooper MD - Last Filed: 06/26/22 12:25> Differential Diagnosis Differential Diagnosis: Acute psychosis/anxiety/depression/insomnia Lab Data Labs: Lab Results 06/13/22 06/13/22 06/13/22 Range/Units 04:45 04:45 04:45 WBC 4.8 (4.5-11.0) X10^3/uL RBC 3.61 L (4.0-5.2) X10^6/uL Hgb 11.2 L (12.0-16.0) g/dL Hct 32.2 L (36-46) % MCV 89.3 (80-100) fL MCH 31.1 (26-34) PG MCHC 34.8 (30-36) % RDW 14.6 (11.6-14.8) % Plt Count 209 (150-400) X10^3/uL Neut % (Auto) 70.4 (50-75) % Lymph % (Auto) 12.8 L (25-40) % [place] % (Auto) 11.9 (3-14) % Eos % (Auto) 4.1 H (2-4) % Baso % (Auto) 0.8 (0-2) % Neut # (Auto) 3400 (6169-5909) /uL Lymph # (Auto) 600 L (5341-0313) /uL [place] # (Auto) 600 (0-900) /uL Eos # (Auto) 200 (0-450) /uL Baso # (Auto) 0 (0-100) /uL Sodium 125 L (137-145) mmol/L Potassium 4.0 (3.4-5.1) mmol/L Chloride 92 L (98-107) mmol/L Carbon Dioxide 21 L (22-32) mmol/L BUN 8 (7-17) mg/dL Creatinine 0.78 (0.52-1.04) mg/dL Estimated GFR > 60 (>60) mL/min BUN/Creatinine Ratio 10.3 (6-22) Glucose 90 (80-110) mg/dL Calcium 9.2 (8.4-10.2) mg/dL Total Bilirubin 0.9 (0.2-1.3) mg/dL AST 30 (14-36) IU/L ALT 13 (<35) IU/L Alkaline Phosphatase 69 (38-126) U/L Total Protein 7.2 (6.3-8.2) g/dL Albumin 4.9 (3.5-5.0) g/dL Globulin 2.3 (1.7-4.1) g/dL Albumin/Globulin Ratio 2.1 (1.0-2.8) Lipase 145 (23-300) U/L TSH (0.47-4.68) uIU/mL Urine Color Urine Appearance Urine pH (4.5-8.0) Ur Specific [place] (1.000-1.035) Urine Protein (Negative) Urine Glucose (UA) (Negative) g/dL Urine Ketones (NEGATIVE) Urine Occult Blood (Negative) Urine Nitrate (Negative) Urine Bilirubin (NEGATIVE) Urine Urobilinogen (0.2) E.U./dL Ur Leukocyte Esterase (NEGATIVE) Urine RBC (0-5/HPF) Urine WBC (0-5/HPF) Ur Squamous Epith Cells (0-5/HPF) Urine Bacteria (None) Ur Culture Indicated? U Opiates 300ng/mL cut (Negative) Ur Oxycodone Screen (Negative) Urine Methadone Screen (Negative) Ur Barbiturates Screen (Negative) U Tricyclic Antidepress (Negative) Ur Phencyclidine Scrn (Negative) Ur Amphetamines Screen (Negative) U Methamphetamines Scrn (Negative) Ur MDMA Scrn (Ecstasy) (Negative) U Benzodiazepines Scrn (Negative) Urine Cocaine Screen (Negative) U Marijuana (THC) Screen (Negative) Ethyl Alcohol < 10 ( - 10) mg/dL SARS-CoV-2 (PCR) (Negative) 06/13/22 06/13/22 06/13/22 Range/Units 04:45 08:10 08:10 WBC (4.5-11.0) X10^3/uL RBC (4.0-5.2) X10^6/uL Hgb (12.0-16.0) g/dL Hct (36-46) % MCV (80-100) fL MCH (26-34) PG MCHC (30-36) % RDW (11.6-14.8) % Plt Count (150-400) X10^3/uL Neut % (Auto) (50-75) % Lymph % (Auto) (25-40) % [place] % (Auto) (3-14) % Eos % (Auto) (2-4) % Baso % (Auto) (0-2) % Neut # (Auto) (6998-7878) /uL Lymph # (Auto) (7762-7766) /uL [place] # (Auto) (0-900) /uL Eos # (Auto) (0-450) /uL Baso # (Auto) (0-100) /uL Sodium (137-145) mmol/L Potassium (3.4-5.1) mmol/L Chloride (98-107) mmol/L Carbon Dioxide (22-32) mmol/L BUN (7-17) mg/dL Creatinine (0.52-1.04) mg/dL Estimated GFR (>60) mL/min BUN/Creatinine Ratio (6-22) Glucose (80-110) mg/dL Calcium (8.4-10.2) mg/dL Total Bilirubin (0.2-1.3) mg/dL AST (14-36) IU/L ALT (<35) IU/L Alkaline Phosphatase (38-126) U/L Total Protein (6.3-8.2) g/dL Albumin (3.5-5.0) g/dL Globulin (1.7-4.1) g/dL Albumin/Globulin Ratio (1.0-2.8) Lipase (23-300) U/L TSH 1.29 (0.47-4.68) uIU/mL Urine Color Yellow Urine Appearance Clear Urine pH 5.0 (4.5-8.0) Ur Specific [place] <=1.005 (1.000-1.035) Urine Protein Negative (Negative) Urine Glucose (UA) Negative (Negative) g/dL Urine Ketones Negative (NEGATIVE) Urine Occult Blood Negative (Negative) Urine Nitrate Negative (Negative) Urine Bilirubin Negative (NEGATIVE) Urine Urobilinogen 0.2 (0.2) E.U./dL Ur Leukocyte Esterase Negative (NEGATIVE) Urine RBC None seen (0-5/HPF) Urine WBC None seen (0-5/HPF) Ur Squamous Epith Cells 0-1 /hpf (0-5/HPF) Urine Bacteria Occasional (0-1) (None) Ur Culture Indicated? Cult not indicated U Opiates 300ng/mL cut Negative (Negative) Ur Oxycodone Screen Negative (Negative) Urine Methadone Screen Negative (Negative) Ur Barbiturates Screen Negative (Negative) U Tricyclic Antidepress Negative (Negative) Ur Phencyclidine Scrn Negative (Negative) Ur Amphetamines Screen Negative (Negative) U Methamphetamines Scrn Negative (Negative) Ur MDMA Scrn (Ecstasy) Negative (Negative) U Benzodiazepines Scrn Negative (Negative) Urine Cocaine Screen Negative (Negative) U Marijuana (THC) Screen Positive H (Negative) Ethyl Alcohol ( - 10) mg/dL SARS-CoV-2 (PCR) (Negative) 06/13/22 Range/Units 08:20 WBC (4.5-11.0) X10^3/uL RBC (4.0-5.2) X10^6/uL Hgb (12.0-16.0) g/dL Hct (36-46) % MCV (80-100) fL MCH (26-34) PG MCHC (30-36) % RDW (11.6-14.8) % Plt Count (150-400) X10^3/uL Neut % (Auto) (50-75) % Lymph % (Auto) (25-40) % [place] % (Auto) (3-14) % Eos % (Auto) (2-4) % Baso % (Auto) (0-2) % Neut # (Auto) (1844-3610) /uL Lymph # (Auto) (1025-0553) /uL [place] # (Auto) (0-900) /uL Eos # (Auto) (0-450) /uL Baso # (Auto) (0-100) /uL Sodium (137-145) mmol/L Potassium (3.4-5.1) mmol/L Chloride (98-107) mmol/L Carbon Dioxide (22-32) mmol/L BUN (7-17) mg/dL Creatinine (0.52-1.04) mg/dL Estimated GFR (>60) mL/min BUN/Creatinine Ratio (6-22) Glucose (80-110) mg/dL Calcium (8.4-10.2) mg/dL Total Bilirubin (0.2-1.3) mg/dL AST (14-36) IU/L ALT (<35) IU/L Alkaline Phosphatase (38-126) U/L Total Protein (6.3-8.2) g/dL Albumin (3.5-5.0) g/dL Globulin (1.7-4.1) g/dL Albumin/Globulin Ratio (1.0-2.8) Lipase (23-300) U/L TSH (0.47-4.68) uIU/mL Urine Color Urine Appearance Urine pH (4.5-8.0) Ur Specific [place] (1.000-1.035) Urine Protein (Negative) Urine Glucose (UA) (Negative) g/dL Urine Ketones (NEGATIVE) Urine Occult Blood (Negative) Urine Nitrate (Negative) Urine Bilirubin (NEGATIVE) Urine Urobilinogen (0.2) E.U./dL Ur Leukocyte Esterase (NEGATIVE) Urine RBC (0-5/HPF) Urine WBC (0-5/HPF) Ur Squamous Epith Cells (0-5/HPF) Urine Bacteria (None) Ur Culture Indicated? U Opiates 300ng/mL cut (Negative) Ur Oxycodone Screen (Negative) Urine Methadone Screen (Negative) Ur Barbiturates Screen (Negative) U Tricyclic Antidepress (Negative) Ur Phencyclidine Scrn (Negative) Ur Amphetamines Screen (Negative) U Methamphetamines Scrn (Negative) Ur MDMA Scrn (Ecstasy) (Negative) U Benzodiazepines Scrn (Negative) Urine Cocaine Screen (Negative) U Marijuana (THC) Screen (Negative) Ethyl Alcohol ( - 10) mg/dL SARS-CoV-2 (PCR) Negative (Negative) Imaging Data CT scan - head: Radiologist's Impression: [address] [address] [address] Scan Report Signed Patient: Yamilet Finch MR#: [id number] : 1960 Acct:[id number] Age/Sex: 62 / F Date of Service: 06/13/22 Loc: ED Accession Number: [id number] ?? Procedure: CT head/brain wo con Ordering Provider: Lauryn Wallace MD PROCEDURE:? CT HEAD/BRAIN WO CON ? INDICATIONS:? breast cancer, monica, hyponatremia ? TECHNIQUE:? Noncontrast 4.5 mm thick angled axial sections acquired from the foramen magnum to the vertex, with coronal and sagittal reformats.? For radiation dose reduction, the following was used:? automated exposure control, adjustment of mA and/or kV according to patient size.? ? COMPARISON:? [facility], CT, CT HEAD/BRAIN WO CON, 03/12/2021, 12:28. ? FINDINGS:? Image quality:? Excellent.? ? CSF spaces:? Basal cisterns are patent.? No extra-axial fluid collections.? Ventricles are normal in size and shape.? ? Brain:? No midline shift.? No intracranial masses or hemorrhage.? Germain-white matter interface is normal.? ? Skull and face:? Calvarium and visualized facial bones are intact, without suspicious lesions.? ? Sinuses:? Visualized sinuses and mastoids are clear.? ? IMPRESSION:? Normal CT of the brain ? ? ? Approved by: Haider Sanchez M.D. on 06/13/2022 at 6:42? [facility] Narrative Medical decision making narrative: 62-year-old woman with history of bipolar disorder, chronic back pain with sciatica and recent breast cancer diagnosis presents with 3 days of insomnia, loss of appetite and increasing labile mood. Alcohol level today is unremarkable, she is clearly manic and calmed somewhat with initial dose of oral 2 mg of Ativan and 10 mg of Zyprexa. As labs are returning it is noted that she is hyponatremic at 125. On re-examination she is cough being slightly and does not have quite as dramatic flare but still is clearly manic and not able to sleep. She very much is willing to try additional medications to sleep recognizing that sleep is required for her back to improve. Will give her an additional dose of both apraxia and Ativan. My goal would be for her to sleep for a number of hours and meet with social work to see what options might be available for her Med list is reviewed with her. She takes dexamethasone only following chemotherapy and her last chemotherapy was in November. This is not a steroid induced psychosis. She does not take any diuretic that might contribute to the hyponatremia. She states that she tries to drink a lot of water because she has been unable to eat however her states that and is not in fact the case. The last CT of her head was in February of last year. Given her altered mental status, hyponatremia in the setting of recently diagnosed cancer of possibility of metastatic brain lesions is entertained. Will obtain a CT scan of her head to rule this out. 10:51 a.m.. Patient has been sleeping very comfortably. Reviewed results with patient and boyfriend. They do agree for bolus of normal saline. was not given overnight. Sodium levels reviewed with patient and boyfriend. They agree for normal saline bolus before discharge. At this time hyponatremia likely not contributory to patient's symptoms at this time. Likely incidental finding. Anxiety at this time likely allergic cause of patient's symptoms and behavior. However feels much better at time of discharge. Not manic. Not anxious. Pain controlled. Appropriate for discharge home. Patient responded very well to Ativan and Zyprexa. Prescription for Vistaril provided for nighttime sleep. Patient has appointment this Tuesday. Otherwise exam and laboratory studies and imaging are reassuring. Return precautions reviewed with them Discharge Plan Departure Patient Disposition: Home Clinical Impression: Moderate bipolar I disorder with monica as current episode, Acute hyponatremia, Acute anxiety Activity Restrictions/Additional Instructions: No driving or operating machinery today. See family doctor this Tuesday as scheduled. Prescription for nighttime to help sleep has been sent to your [facility] in [place]. May continue home medications. Return if worse if any questions or concerns. Your sodium levels were slightly low. Be sure to have this rechecked with your family doctor this week as well. Prescriptions: New hydroxyzine pamoate [Vistaril] 50 mg capsule 50 mg PO BEDTIME PRN (Reason: sleep) Qty: 7 0RF No Action losartan 100 mg tablet 100 mg PO DAILY metoprolol succinate 100 mg tablet extended release 24 hr 50 mg PO DAILY pantoprazole 40 mg tablet,delayed release (DR/EC) 40 mg PO DAILY pregabalin 75 mg capsule 75 mg PO BID mecobalamin (vitamin B12) 1,000 mcg tablet,chewable 1,000 mcg PO DAILY folic acid 400 mcg tablet 0.4 mg PO DAILY cholecalciferol (vitamin D3) 10 mcg (400 unit) capsule 10 mcg PO DAILY fenofibrate 160 mg tablet 160 mg PO DAILY amlodipine 5 mg tablet 5 mg PO DAILY escitalopram oxalate 10 mg tablet 20 mg PO DAILY lorazepam 0.5 mg tablet 0.5 mg PO BID PRN (Reason: panic or severe anxiety) Qty: 15 2RF ondansetron 8 mg tablet,disintegrating 8 mg PO DAILY PRN prochlorperazine maleate 10 mg tablet 10 mg PO DAILY PRN (Reason: nausea and vomiting) dexamethasone 4 mg tablet 4 mg PO DAILY acetaminophen 325 MG tablet 1,000 mg PO BID PRN (Reason: pain) Qty: 0 ascorbic acid (vitamin C) [Vitamin C] 500 mg tablet 500 mg PO DAILY Qty: 30 0RF ferrous sulfate 325 mg (65 mg iron) tablet 325 mg PO DAILY Qty: 30 0RF Referrals: Johanne Conte MD [Primary Care Provider] - Visit Report Forms: Patient Portal/API
[2022-06-13 04:57] LABS: Add Manual Diff / Slide Review NO; Basophils Absolute Auto 0 /uL (0-100); Basophils Percent Auto 0.8 % (0-2); Eosinophils Absolute Auto 200 /uL (0-450); Eosinophils Percent Auto 4.1 % (2-4); Hematocrit 32.2 % (36-46); Hemoglobin 11.2 g/dL (12.0-16.0); Lymphocytes Absolute Auto 600 /uL (1100-4500); Lymphocytes Percent Auto 12.8 % (25-40); Mean Corpuscular HGB Conc 34.8 % (30-36); Mean Corpuscular Hemoglobin 31.1 PG (26-34); Mean Corpuscular Volume 89.3 fL (80-100); Monocytes Absolute Auto 600 /uL (0-900); Monocytes Percent Auto 11.9 % (3-14); Neutrophils Absolute Auto 3400 /uL (1500-7000); Neutrophils Percent Auto 70.4 % (50-75); Platelet Count 209 X10^3/uL (150-400); Red Blood Cell Count 3.61 X10^6/uL (4.0-5.2); Red Cell Distribution Width 14.6 % (11.6-14.8); White Blood Cell Count 4.8 X10^3/uL (4.5-11.0)
[2022-06-13] MEDS: LORazepam 0.5 MG TABLET 2 MG PO ×2 (04:57→05:39)
[2022-06-13] MEDS: OLANZapine ODT 10 MG TAB PO ×2 (04:57→05:40)
[2022-06-13 05:04] LABS: Ethanol (ETOH) < 10 mg/dL; Lipase 145 U/L (23-300)
[2022-06-13 05:05] LABS: Alanine Aminotransferase 13 IU/L (<35); Albumin 4.9 g/dL (3.5-5.0); Albumin Globulin Ratio 2.1 (1.0-2.8); Alkaline Phosphatase 69 U/L (38-126); Aspartate Aminotransferase 30 IU/L (14-36); BUN Creatinine Ratio 10.3 (6-22); Bilirubin Total 0.9 mg/dL (0.2-1.3); Blood Urea Nitrogen 8 mg/dL (7-17); Calcium 9.2 mg/dL (8.4-10.2); Carbon Dioxide 21 mmol/L (22-32); Chloride 92 mmol/L (98-107); Estimated Glomerular Filt Rate > 60 mL/min (>60); Globulin 2.3 g/dL (1.7-4.1); Glucose 90 mg/dL (80-110); HEMOLYSIS 31 (0-50); Sodium 125 mmol/L (137-145); Total Protein 7.2 g/dL (6.3-8.2)
[2022-06-13 05:49] LABS: Thyroid Stimulating Hormone 1.29 uIU/mL (0.47-4.68)
--- NOTE | 2022-06-13 06:23 | DI.CT.S_ITS ---
PROCEDURE: CT HEAD/BRAIN WO CON INDICATIONS: breast cancer, monica, hyponatremia TECHNIQUE: Noncontrast 4.5 mm thick angled axial sections acquired from the foramen magnum to the vertex, with coronal and sagittal reformats. For radiation dose reduction, the following was used: automated exposure control, adjustment of mA and/or kV according to patient size. COMPARISON: [facility], CT, CT HEAD/BRAIN WO CON, 03/12/2021, 12:28. FINDINGS: Image quality: Excellent. CSF spaces: Basal cisterns are patent. No extra-axial fluid collections. Ventricles are normal in size and shape. Brain: No midline shift. No intracranial masses or hemorrhage. Germain-white matter interface is normal. Skull and face: Calvarium and visualized facial bones are intact, without suspicious lesions. Sinuses: Visualized sinuses and mastoids are clear. IMPRESSION: Normal CT of the brain Approved by: Haider Sanchez M.D. on 06/13/2022 at 6:42
[2022-06-13 08:14] LABS: Appearance Urine UA CLEAR; Bilirubin Urine UA NEGATIVE (NEGATIVE); Color Urine UA YELLOW; Glucose Urine UA NEGATIVE (Negative); Ketones Urine UA NEGATIVE (NEGATIVE); Leukocyte Esterase Urine UA NEGATIVE (NEGATIVE); Nitrite Urine UA NEGATIVE (Negative); Occult Blood Urine UA NEGATIVE (Negative); Protein Urine UA NEGATIVE (Negative); Specific Gravity Urine UA <=1.005 (1.000-1.035); Urobilinogen Urine UA 0.2 E.U./dL (0.2)
[2022-06-13 08:21] LABS: Ur Creatinine Normal (Normal); Ur Specific Gravity Normal (Normal); Urine pH Normal (Normal)
[2022-06-13 08:22] LABS: UR Morphine/Opiate cutoff 300 Negative (Negative); Urine Amphetamines Negative (Negative); Urine Barbiturates Negative (Negative); Urine Benzodiazepines Negative (Negative); Urine Cocaine Negative (Negative); Urine MDMA Negative (Negative); Urine Methadone Negative (Negative); Urine Methamphetamines Negative (Negative); Urine Oxycodone Negative (Negative); Urine Phencyclidine Negative (Negative); Urine Tetrahydrocannabinol Positive (Negative); Urine Tricyclic Antidepressant Negative (Negative)
[2022-06-13 08:27] LABS: Bacteria Urine Occasional (0-1); Culture Indicated Urine Cult Not Indicated; RBC Urine None Seen (0-5/HPF); Squamous Epithelial Cell Urine 0-1 /HPF (0-5/HPF); WBC Urine None Seen (0-5/HPF)
[2022-06-13 08:39] LABS: COVID19 -Nasal RAPID Negative (Negative)
--- NOTE | 2022-06-13 10:46 | PC.NURSE ---
called social work this morning. No protective services social worker today. Dr. Bee aware
[2022-06-13] MEDS: SODIUM CHLORIDE 0.9% 1,000 ML 1000 ML IV (10:54)
== END 2022-06-13 12:17 | disposition home or self-care (01) ==
PROVIDERS: Emergency Medicine; Emergency Provider Emergency Medicine; PCP Internal Medicine
DX: F31.12 Bipolar disorder, current episode manic without psychotic features, moderate (principal); R51.9 Headache, unspecified; E87.1 Hypo-osmolality and hyponatremia; F41.9 Anxiety disorder, unspecified; G47.00 Insomnia, unspecified; C50.919 Malignant neoplasm of unspecified site of unspecified female breast; Z20.822 Contact with and (suspected) exposure to COVID-19
CPT/HCPCS: 70450; 80053; 80305; 80320; 81001; 83690; 84443; 85025; 87635; 96360; 99284; C9803

== ENCOUNTER → 2022-08-18 11:30 | Outpatient (CLI) | payer MEDICARE, OTHER, SELFPAY ==
[2021-03-12 17:28] VITALS: BMI 28.1
--- NOTE | 2022-08-18 11:33 | DI.MRI.S_ITS ---
PROCEDURE: MR HEAD/BRAIN WO/W CON INDICATIONS: New monica, rule out brain metastases TECHNIQUE: Noncontrast axial T1 spin echo, axial T2 fast spin echo, sagittal and axial FLAIR, coronal T2 fast spin echo, axial gradient echo, axial diffusion and ADC through the brain. After the administration of contrast, axial and coronal and sagittal 3D VIBE or T1 spin echo with fat saturation through the brain. COMPARISON: None. FINDINGS: Image quality: Excellent. CSF Spaces: Basal cisterns are patent. No extra-axial fluid collections. Ventricles are normal in size and shape. Brain: No midline shift. No intracranial bleeds or masses. No abnormal intracranial enhancement. The brainstem appears normal. Diffusion-weighted images demonstrate no acute ischemic insults. No chronic ischemic insults. Normal intravascular flow voids are present. The pituitary appears as well as lobulated in appearance. Skull and face: Calvarial marrow is normal in signal. Orbits appear normal. Sinuses: Sinuses and mastoids appear clear. IMPRESSION: Pituitary enlargement with lobulation suggestive underlying mass. MRI with pituitary protocol is recommended for further evaluation. Dictated by: Annika Angeles M.D. on 08/18/2022 at 23:41 Approved by: Annika Angeles M.D. on 08/18/2022 at 23:42
== END ==
PROVIDERS: PCP Family Medicine; Referring Provider Psychiatry & Neurology Psychiatry; Visit Provider Psychiatry & Neurology Psychiatry
DX: R93.0 Abnormal findings on diagnostic imaging of skull and head, not elsewhere classified (principal); C50.919 Malignant neoplasm of unspecified site of unspecified female breast; F30.8 Other manic episodes; R42 Dizziness and giddiness
CPT/HCPCS: 70553

== ENCOUNTER → 2025-01-26 11:29 | Outpatient (CLI) | payer MEDICARE, OTHER, SELFPAY ==
[2022-08-20 10:48] VITALS: BMI 28.1
[2025-01-26 12:38] LABS: Add Manual Diff / Slide Review NO; Basophils Absolute Auto 100 /uL (0-100); Eosinophils Absolute Auto 200 /uL (0-450); Eosinophils Percent Auto 3.5 % (2-4); Hematocrit 40.9 % (36-46); Hemoglobin 13.4 g/dL (12.0-16.0); Lymphocytes Absolute Auto 1800 /uL (1100-4500); Lymphocytes Percent Auto 33.9 % (25-40); Mean Corpuscular HGB Conc 32.8 % (30-36); Mean Corpuscular Hemoglobin 28.6 PG (26-34); Mean Corpuscular Volume 87.4 fL (80-100); Monocytes Absolute Auto 300 /uL (0-900); Monocytes Percent Auto 6.1 % (3-14); Neutrophils Absolute Auto 2900 /uL (1500-7000); Neutrophils Percent Auto 55.5 % (50-75); Platelet Count 146 X10^3/uL (150-400); Red Blood Cell Count 4.68 X10^6/uL (4.0-5.2); Red Cell Distribution Width 13.9 % (11.6-14.8); White Blood Cell Count 5.2 X10^3/uL (4.5-11.0)
[2025-01-26 12:46] LABS: Hemoglobin A1C% w Est Avg Glu 5.4 % (4.0-6.0)
[2025-01-26 12:54] LABS: Alanine Aminotransferase 17 IU/L (<35); Albumin 4.4 g/dL (3.5-5.0); Albumin Globulin Ratio 1.9 (1.0-2.8); Alkaline Phosphatase 59 U/L (38-126); Aspartate Aminotransferase 28 IU/L (14-36); BUN Creatinine Ratio 15.7 (6-22); Bilirubin Total 0.6 mg/dL (0.2-1.3); Blood Urea Nitrogen 11 mg/dL (7-17); Calcium 9.3 mg/dL (8.4-10.2); Carbon Dioxide 25 mmol/L (22-32); Chloride 107 mmol/L (98-107); Cholesterol 166 mg/dL (140-199); Estimated Glomerular Filt Rate > 60 mL/min (>60); Globulin 2.3 g/dL (1.7-4.1); Glucose 93 mg/dL (80-110); HDL Cholesterol 58 mg/dL (40-60); HEMOLYSIS < 15 (0-50); LDL Cholesterol Calculated 85 mg/dL (<100); Potassium 4.1 mmol/L (3.4-5.1); Sodium 140 mmol/L (137-145); Total Protein 6.7 g/dL (6.3-8.2); Triglycerides 116 mg/dL (35-150)
== END ==
PROVIDERS: PCP Family Medicine; Referring Provider Psychiatry & Neurology Psychiatry; Visit Provider Psychiatry & Neurology Psychiatry
DX: F31.81 Bipolar II disorder (principal); Z79.899 Other long term (current) drug therapy
CPT/HCPCS: 36415; 80053; 80061; 83036; 85025